=== PATIENT | female | born 1955 | race Caucasian/White ===

== ENCOUNTER → 2017-10-30 15:24 | Outpatient (CLI) | payer OTHER, SELFPAY | PROVIDERS: Visit Provider Nurse Practitioner Adult Health | DX: N39.0 Urinary tract infection, site not specified (principal) | CPT/HCPCS: 36415; 87086; 87088 ==

== ENCOUNTER → 2017-12-11 09:20 | Outpatient (CLI) | payer OTHER, SELFPAY ==
--- OUTSIDE RECORDS SUMMARY | 2017-12-11 09:57 | XMS RPT_ITS | Clinical Summary ---
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) Medications Medication Instructions Start Stop Generic Name NDC Provider Date Date SYNTHROID 112 Take one tablet LEVOTHYROXINE 35992900664 Selam Dutton MCG TABS daily SODIUM Shook MANAGER SOCIAL LOVASTATIN 20 3 per week LOVASTATIN [id number] Erin L MG TABS Mac PEDICURIST TRAZODONE HCL q hs TRAZODONE HCL [id number] Erin L 50 MG TABS Mca PEDICURIST VITAMIN D TABS qd CHOLECALCIFEROL 55485244665 Erin L TABS Mac PEDICURIST MEGARED OMEGA-3 qd KRILL OIL CAPS [id number] Erin L KRILL OIL CAPS Mac PEDICURIST MAGNESIUM 500 qd MAGNESIUM OXIDE [id number] Erin L MG CAPS Mac PEDICURIST MULTIVITAMIN qd MULTIPLE 24032609821 Erin L ADULT TABS VITAMINS-MINERALS Mac PEDICURIST Medications Administered No information available. Allergies, Adverse Reactions, Alerts Allergy Name Reaction Description Start Date Severity Status Provider MACRODANTIN Critical Active Erin L Mac PEDICURIST Results Date Name Value Unit Range Flag Description Office Visit: Follow up hypothyroid PHQ-9 SCORE 3 Adult depression screening assessment PHQ2 SCORE 0 Adult depression screening assessment MEDS REVIEW Done Documentation of current medications (procedure) ORALTOBACUSE Never Tobacco smoking status NHIS SMOK STATUS Never smoker Tobacco use [facility] Plan of Care No information available. Procedures No information available. Vital Signs Date Name Value Unit Description BMI (Body Mass Index) 25.26 kg/m2 Body Mass Index [Ratio] BP Diastolic 80 mm[Hg] blood pressure, diastolic - 8462-4 BP Systolic 122 mm[Hg] blood pressure, systolic - 8480-6 Heart Rate 67 /min pulse rate E&M - 8867-4 Height 63 [in_us] height E&M - 8302-2 Respiratory Rate 18 /min respiratory rate E&M - 9279-1 Weight Measured 142.6 [lb_av] weight E&M - 3141-9
--- OUTSIDE RECORDS SUMMARY | 2017-12-11 09:57 | XMS RPT_ITS | Clinical Summary ---
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) Medications Medication Instructions Start Stop Generic Name NDC Provider Date Date SYNTHROID 112 Take one tablet LEVOTHYROXINE [id number] Selam Dutton MCG TABS daily SODIUM Shook PEANUT BUTTER MAKER LOVASTATIN 20 3 per week LOVASTATIN [id number] Erin L MG TABS Mac EDUCATIONAL PROGRAM ASSISTANT TRAZODONE HCL q hs TRAZODONE HCL 59669507801 Erin L 50 MG TABS Mac EDUCATIONAL PROGRAM ASSISTANT VITAMIN D TABS qd CHOLECALCIFEROL 26957652801 Erin L TABS Mac EDUCATIONAL PROGRAM ASSISTANT MEGARED OMEGA-3 qd KRILL OIL CAPS [id number] Erin L KRILL OIL CAPS Mac EDUCATIONAL PROGRAM ASSISTANT MAGNESIUM 500 qd MAGNESIUM OXIDE 70854933161 Erin L MG CAPS Mac EDUCATIONAL PROGRAM ASSISTANT MULTIVITAMIN qd MULTIPLE 57436515501 Erin L ADULT TABS VITAMINS-MINERALS Mac EDUCATIONAL PROGRAM ASSISTANT Medications Administered No information available. Allergies, Adverse Reactions, Alerts Allergy Name Reaction Description Start Date Severity Status Provider MACRODANTIN Critical Active Erin L Mac EDUCATIONAL PROGRAM ASSISTANT Results Date Name Value Unit Range Flag Description Office Visit: Follow up hypothyroid PHQ-9 SCORE 3 Adult depression screening assessment PHQ2 SCORE 0 Adult depression screening assessment MEDS REVIEW Done Documentation of current medications (procedure) ORALTOBACUSE Never Tobacco smoking status NHIS SMOK STATUS Never smoker Tobacco use [facility] Plan of Care No information available. [...]
--- OUTSIDE RECORDS SUMMARY | 2017-12-11 09:57 | XMS RPT_ITS | Clinical Summary ---
:1955 Author Organization [facility], [facility] Address [address] [place] [phone] Phone Care Team Providers Name Role Phone Lacey BENSON, Selam Dutton Unavailable Conditions or Problems No information available. Medications Medication Instructions Start Stop Generic Name NDC Provider Date Date SYNTHROID 112 Take one tablet LEVOTHYROXINE [id number] Selam Dutton MCG TABS daily SODIUM Lacey BENSON Medications Administered No information available. Allergies, Adverse Reactions, Alerts No information available. Results No information available. Plan of Care Type Date Detail Appointment 03:00 PM Selam Rahman NP, [address] [facility], [address], [place], [address], Procedures No information available. Vital Signs No information available.
--- OUTSIDE RECORDS SUMMARY | 2017-12-11 09:57 | XMS RPT_ITS | Clinical Summary ---
:1955 Author Organization [facility], [facility] Address [address] [place] [address] Phone Care Team Providers Name Role Phone Dietrich OLY Mary Ann Bar Unavailable Unavailable Conditions or Problems No information available. Medications Medication Instructions Start Stop Generic Name NDC Provider Date Date SYNTHROID 112 Take one tablet LEVOTHYROXINE [id number] Selam Dutton MCG TABS daily FARHAT Rahman NP LOVASTATIN 20 3 per week LOVASTATIN [id number] Erin L MG TABS Mac COMPUTER TYPESETTER TRAZODONE HCL q hs TRAZODONE HCL [id number] Erin L 50 MG TABS Mac COMPUTER TYPESETTER VITAMIN D TABS qd CHOLECALCIFEROL [id number] Erin L TABS Mac COMPUTER TYPESETTER MEGARED OMEGA-3 qd KRILL OIL CAPS [id number] Erin L KRILL OIL CAPS Mac COMPUTER TYPESETTER MAGNESIUM 500 qd MAGNESIUM OXIDE 04997662056 Erin L MG CAPS Mac COMPUTER TYPESETTER MULTIVITAMIN qd MULTIPLE [phone] Eirn L ADULT TABS VITAMINS-MINERALS Mac COMPUTER TYPESETTER Medications Administered No information available. Allergies, Adverse Reactions, Alerts Allergy Name Reaction Description Start Date Severity Status Provider MACRODANTIN Critical Active Erin L Mca COMPUTER TYPESETTER Results No information available. Plan of Care Type Date Detail Appointment 03:00 PM Selam Rahman COMPUTER HARDWARE DESIGNER, [address] [facility], [address], [place], [address], Procedures No information available. Vital Signs No information available.
--- OUTSIDE RECORDS SUMMARY | 2017-12-11 09:58 | XMS RPT_ITS ---
:1955 Author Organization OHIP Care Team Providers Name Role Phone ARTIE BARTH (MAINTENANCE CONSTRUCTION HELPER) Attending Unavailable DENISE SCHRADER (ORTHOTIC FINISH GRINDING TECHNICIAN) Attending Unavailable CASSY TREADWELL (ORTHOTIC FINISH GRINDING TECHNICIAN) Attending Unavailable Tu Richardson Attending Unavailable Tu Richardson Primary Care Unavailable Jessica Patel Attending Unavailable Tu Richardson Primary Care Unavailable Jessica Patel Attending Unavailable Jessica Patel Referring Unavailable David Levin Primary Care Unavailable Jessica Patel Attending Unavailable Jessica Patel Referring Unavailable Ollie, David Primary Care Unavailable David Levin Attending Unavailable Ollie David Referring Unavailable Ollie David Primary Care Unavailable PROBLEMS PROBLEMS DATE TYPE CONDITION / CODE ATTENDING STATUS SOURCE 12/11/2017 Unknown Z00.00 - David Levin Active [place] Encounter for [facility] medical Repository examination without abnormal findings / Z00.00(ICD-10) 09/03/2017 Unknown N39.0 - Urinary Amanda, Jessica Active [place] tract infection, M Community site not Hospital specified / Repository N39.0(ICD-10) 09/03/2017 Unknown R30.0 - Dysuria / Amanda, Jessica Active [place] R30.0(ICD-10) M [facility] Repository 08/26/2017 Active Unknown / MILECASSY Active [facility] UNK(Medicity (ORTHOTIC FINISH GRINDING TECHNICIAN) Main [place] Unknown) Repository 05/12/2017 Unknown HYPOTHYROIDISM, Tu Richardson Active [place] UNSPECIFIED / Community E03.9(ICD-10) Hospital Repository 05/12/2017 Unknown PURE Tu Richardson Active [place] HYPERCHOLESTEROLE Community [facility], UNSPECIFIED Hospital / E78.00(ICD-10) Repository 05/12/2017 Unknown OTH DISRD OF BONE Tu Richardson Active [place] DENSITY AND Community STRUCTURE, Hospital UNSPECIFIED SITE Repository / M85.80(ICD-10) PROCEDURES PROCEDURES No Procedure Records FoundRESULTS RESULTS Observed: 10/30/2017 Status: F Source: [place] CULTURE, URINE 3:29 PM [facility] REPOSITORY Urine CultureBelow infection level. ORGANISM 1: Mixed Gram Pos AND Gram Neg OrgColony Count <1000 Performed By: #### M100.0650 ####[facility] [address] [place], [address] Observed: 09/29/2017 Status: F Source: [place] CULTURE, URINE 4:00 PM [facility] REPOSITORY Urine CultureCopy of report sent to Infection Control Printer [id number] 10/01/17 3816 BLUCAS. ORGANISM 1: Presumptive E. coliColony Count >100,000MARKER ESBL producing Organism Presumptive E. coli: REACTION Amoxacillin/ Clavulanic Acid $ >=32 R Ampicillin $ >=32 R Ampicillin/Sulbactam $ >=32 R Cefazolin $ 16 I Cefepime $ <=1 S Ceftriaxone $ <=1 S Ciprofloxacin $ >=4 R ESBL + Ertapenim $$$ <=0.5 S Gentamicin $ <=1 S Imipenem *NF <=0.25 S Levofloxacin $ >=8 R Nitrofurantoin $ <=16 S Piperacillin/Tazobactam $$ >=128 R Tobramycin $ <=1 S Trimethoprim/Sulfametho $ >=320 R(NF) indicates non-formulary drug at [facility]. Approval by Infectious Disease Specialist required before non-formulary drugs may be ordered and/or dispensed. Performed By: #### M100.0650 ####[facility] [address] [place], [address] Observed: 09/03/2017 Status: F Source: [place] CULTURE, URINE 10:00 AM [facility] REPOSITORY Urine CultureCopy of report sent to Infection Control Printer [id number] 09/06/17 0723 BLUCAS. ORGANISM 1: Presumptive E. coliColony Count 50,000-80,000 Presumptive E. coli: REACTION Amoxacillin/Clavulanic Acid $ >=32 R Ampicillin $ >=32 R Ampicillin/Sulbactam $ >=32 R Cefazolin $ 8 S Cefepime $ <=1 S Ceftriaxone $ <=1 S Ciprofloxacin $ >=4 R ESBL + Ertapenim $$$ <=0.5 S Gentamicin $ <=1 S Imipenem *NF <=0.25 S Levofloxacin $ >=8 R Nitrofurantoin $ <=16 S Piperacillin/Tazobactam $$ >=128 R Tobramycin $ <=1 S Trimethoprim/Sulfametho $ >=320 R(NF) indicates non- formulary drug at [facility]. Approval by Infectious Disease Specialist required before non-formulary drugs may be ordered and/or dispensed. Performed By: #### M100.0650 ####[facility] [address] [place], [address] OBSOLETE Observed: 08/28/2017 Status: COMPLETED Source: [place] 12:00 AM [facility] REPOSITORY Refill (WOOB) -------BREN MICHAEL ([id number]) 1955 FDate Time Provider Upvsyjvhlx52/14/17 CASSY TREADWELL ([facility]) WOOB During your visit today, we recorded the following information about you:Maura Niles CHIANG 08/28/2017 9 :31 AM SignedPatient states that she was in recently on 08/26/17 for UTI symptoms. Shethought she still had pills left from her last Pyridium rx, but only had one.Patient asking if she can have another Rx. Pharmacy is up to date. Please filepending Rx. Thank you. No need to call patient back unless there is a problem.Maura Cage RNAllergies As of Date: 08/28/2017 Noted Allergy ReactionMACRODANTIN (NITROFURANTOIN MACRO*05/06/2006 4 - HivesDate Reviewed: 08/26/2017Reviewed by : Cassy Whittington) Mile - Fully AssessedReason for Visit: Refill Request [94]Order(s):phenazopyridine (PYRIDIUM) 200 mg tabletTO BE TAKEN DIRECTED BY MOUTH ONE(1) TABLET THREE TIMES DAILY X 2 DAYSDisp: 6 tabletRfl: 0Prescriptions as of 08/28/2017 Sig: PHENAZOPYRIDINE 200 MG TABLET TO BE TAKEN DIRECTED BY MO* SULFAMETHOXAZOLE 800 MG-TRIME* Take 1 tablet by mouth twice * SENNA LAX ORAL Take by mouth. LEVOTHYROXINE 112 MCG TABLET Take 1 tablet by mouth once d* GABAPENTIN 300 MG CAPSULE TAKE 2 CAPSULES BY MOUTH ONCE* TRAZODONE 50 MG TABLET Take one(1) tablet daily as n*Problem List As Of Date 08/28/2017 Noted Resolved VARICOSE VEINS NEC [456] BONE AND CARTILAGE DIS NOS [M89.9, M94.9] INVALID FOR* NONTOX NODUL GOITER NOS [E04.9] INVALID FOR* ASYMPTOMATIC VARICOSE VEINS [I83.90] INVALID FOR* Postsurgical hypothyroidism [E89.0] INVALID FOR* Spider veins [I78.1] INVALID FOR* Internal hemorrhoid, bleeding [K64.8] INVALID FOR* Incomplete uterovaginal prolapse [N81.2] INVALID FOR* Female stress incontinence [N39.3] INVALID FOR* Prolapsed, uterovaginal, incomplete [N81.2] INVALID FOR*07/25/2016 Prolapse of vaginal gandhi [N81.10] INVALID FOR*07/25/2016 Postoperative anemia due to acute blood loss [D*INVALID FOR* Uterovaginal prolapse [N81.4] INVALID FOR* Atelectasis pulmonary [J98.11] INVALID FOR*Prescriptions ordered this encounter Disp Refills Start End PHENAZOPYRIDINE 200 MG TABLET 6 ta* 0 08/28/2017 Sig: TO BE TAKEN DIRECTED BY MOUTH ONE(1) TABLET THREE TIMES DAILY X 2 DAYSEncounter Number: [id number] Status:Closed by CASSY TREADWELL on Observed: 08/26/2017 Status: F Source: [place] URINE CULTURE 4:39 PM [facility] REPOSITORY Sp. Request/Comment: - Specimen received in preservative THIS WILL PRINT A REQUISITION TO ACCOMPANY THE SPECIMEN TO THE LAB.Culture Result - No growth (<1,000 CFU/ml) Performed By: #### URCUL ####[facility] [address] [place], [place] [id number] PROGRESS Observed: 08/26/2017 Status: COMPLETED Source: [place] 4:32 PM [facility] REPOSITORY HNO ID: [id number]: Cassy (Bulbs Farmworker) MetcalfService: (none)Author Type: Nurse PractitionerType: Progress NotesFiled: 08/26/2017 4: 48 PMNote Text:Bren Michael is a 62 year old female who presents for problem visitdysuria for 1 day.HPI: pt states that in Jun 2017 that she had an infection and took somecipro that did not quite clear the infection and took the refill whichseem to resolve. A few weeks ago she felt like she was getting another UTIand took some PCN that she had at home. Then again today started with somedysuria and frequency.PAST MEDICAL HISTORYDiagnosis Date- Deep vein thrombosis (HCC) 06/25, 03/2015- Disorder of bone and cartilage, unspecified Osteopenia- Diverticulitis 2015- Hemorrhage of rectum and anus- Hypothyroidism- Unspecified constipation- Varicose veins of other sitesPAST SURGICAL HISTORYProcedure Laterality Date- BX OF BREAST; INCISIONAL Bx of breast, incisional, Left- COLONOSCOP W/ OR W/O BRSH SPEC 12/25/07- FOOT SURGERY HX 03/2015 left ankle- HEMORRHOIDOPEXY BY STAPLING 11-15- - HYSTERECTOMY 07/2016- PAST SURGICAL HISTORY OF Multiple scleral therapies- PAST SURGICAL HISTORY OF 07/2016 TVH, BSO, Uterosacral ligament suspension, Roshan TOT sling, AANDP repair,Cystoscopy- REMOVAL OF TONSILS,<12 Y/O remote Tonsillectomy- THYROIDECTOMY 11/21 total for benign tumorsFAMILY HISTORYProblem Relation Age of Onset- Osteoporosis Mother- Hypertension Mother- Lipids Mother High Cholesterol- Heart Mother 2-KS's- Hypertension Father- Heart Father [place], - Osteoporosis Sister- Osteopenia [OTHER] Sister- Hypertension Sister- Hypertension Brother- Lipids Sister High Cholesterol- Other [OTHER] Other No breast/obstetrician and gynaecologist/colon cancer- Prostate Cancer BrotherSocial History Marital status: Spouse name: Adama Michael Years of education: Number of children: 2Occupational 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[place]*Social History Main Topics Smoking status: Never Smoker Smokeless status: Never Used Alcohol use: No Drug use: No Sexual activity: Yes Partners with: Male Comment: has had vasectomyCurrent Outpatient Prescriptions:SENNOSIDES (SENNA LAX ORAL) Take by mouth.levothyroxine ( SYNTHROID) 112 mcg tablet Take 1 tablet by mouth oncedaily.gabapentin (NEURONTIN) 300 mg capsule TAKE 2 CAPSULES BY MOUTH ONCE DAILYAT BEDTIME.TRAZODONE 50 MG TAB Take one(1) tablet daily as necessaryNo current facility-administered medications for this visit.Allergies As of Date: 08/26/2017Allergen Noted ReactionMACRODANTIN [NITROFURANTOIN MACRO*05/06/2006 HivesFully Assessed 08/26/2017REVIEW OF SYSTEMSAbdomen: No bloating, early satiety, indigestion, or increased flatulence.No abdominal pain, nausea, vomiting, diarrhea, or constipation.Bladder: Dysuria and frequency today. No gross hematuria, urinary urgency,or incontinence.Expanded ROS: N/AAllergies and current medication updated:YesEXAM: BP 110/62 Pulse 84 Resp 18 Ht 5' 3 (1.60m) Wt 141 lb 6.4 oz(64.1kg) LMP 10/04/2010 BMI 25.05 kg/(m2).GENERAL: pleasant, female in no apparent distressCHEST: Normal inspiratory effortNEURO: alert and oriented x3,exam grossly non-focalEXTREMITIES: normalASSESSMENT AND PLAN:Encounter Diagnosis ICD-10-CM1. Dysuria R30.0 UA DIP B/OUTI- bactrim x3 dayWill send urine cultureFollow up as needed.CASSY TREADWELL CNP CNOV Observed: 08/26/2017 Status: COMPLETED Source: [place] 4:30 PM [facility] REPOSITORY Office Visit (WOOB) -------BREN MICHAEL ([id number]) 1955 [facility] Time Provider Maikuvgejn91/12/17 4:30 PM CASSY TREADWELL ([facility]) WOOB During your visit today, we recorded the following information about you: Pulse Respiration Blood pressure Weight 84/minute 18/minute 110/62 64.1 kg Height 1.6 Amari TREADWELL CNP 08/26/2017 4:48 PM Katarina Dutton Alec is a 62 year old female who presents for problem visitdysuria for 1 day.HPI: pt states that in Jun 2017 that she had an infection and took some ciprothat did not quite clear the infection and took the refill which seem toresolve. A few weeks ago she felt like she was getting another UTI and tooksome PCN that she had at home. Then again today started with some dysuria andfrequency.PAST MEDICAL HISTORYDiagnosis Date - Deep vein thrombosis (HCC) 06/25, 03/2015- Disorder of bone and cartilage, unspecified Osteopenia- Diverticulitis 2015- Hemorrhage of rectum and anus- Hypothyroidism- Unspecified constipation- Varicose veins of other sitesPAST SURGICAL HISTORYProcedure Laterality Date- BX OF BREAST; INCISIONAL 1990s Bx of breast, incisional, Left- COLONOSCOP W/ OR W/O BRSH SPEC 12/25/07- FOOT SURGERY HX 2014 left ankle- HEMORRHOIDOPEXY BY STAPLING 11-15-- HYSTERECTOMY 07/2016- PAST SURGICAL HISTORY OF Multiple scleral therapies- PAST SURGICAL HISTORY OF 07/2016 TVH, BSO, Uterosacral ligament suspension, Roshan TOT sling, AANDamp;P repair,Cystoscopy- REMOVAL OF TONSILS,ANDlt;12 Y/O remote Tonsillectomy- THYROIDECTOMY 11/21 total for benign tumorsFAMILY HISTORYProblem Relation Age of Onset- Osteoporosis Mother- Hypertension Mother- Lipids Mother High Cholesterol- Heart Mother 2- KS's- Hypertension Father- Heart Father [place], - Osteoporosis Sister- Osteopenia [OTHER] Sister- Hypertension Sister- Hypertension Brother- Lipids Sister High Cholesterol- Other [OTHER] Other No breast/obstetrician and gynaecologist/colon cancer- Prostate Cancer BrotherSocial History Marital status : Spouse name: Adama Michael Years of education: Number of children: 2Occupational 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*Social History Main Topics Smoking status: Never Smoker Smokeless status: Never Used Alcohol use: No Drug use: No Sexual activity: Yes Partners with: Male Comment: has had vasectomyCurrent Outpatient Prescriptions:SENNOSIDES (SENNA LAX ORAL) Take by mouth.levothyroxine (SYNTHROID) 112 mcg tablet Take 1 tablet by mouth once daily.gabapentin ( NEURONTIN) 300 mg capsule TAKE 2 CAPSULES BY MOUTH ONCE DAILY ATBEDTIME.TRAZODONE 50 MG TAB Take one(1) tablet daily as necessaryNo current facility-administered medications for this visit.Allergies As of Date: 08/26/2017Allergen Noted ReactionMACRODANTIN [ NITROFURANTOIN MACRO*05/06/2006 HivesFully Assessed 08/26/2017REVIEW OF SYSTEMSAbdomen: No bloating, early satiety, indigestion, or increased flatulence. Noabdominal pain, nausea, vomiting, diarrhea, or constipation.Bladder: Dysuria and frequency today. No gross hematuria, urinary urgency, orincontinence.Expanded ROS: N/AAllergies and current medication updated: YesEXAM: BP 110/62 Pulse 84 Resp 18 Ht 5' 3ANDquot; (1.60m) Wt 141 lb 6.4 oz(64.1kg) LMP 2010 BMI 25.05 kg/(m2).GENERAL: pleasant, female in no apparent distressCHEST: Normal inspiratory effortNEURO: alert and oriented x3,exam grossly non-focalEXTREMITIES: normalASSESSMENT AND PLAN:Encounter Diagnosis ICD-10-CM1. Dysuria R30.0 UA DIP B/OUTI- bactrim x3 dayWill send urine cultureFollow up as needed.CASSY TREADWELL CNPReferring Provider: SELF [200] Allergies As of Date: 08/26/2017 Noted Allergy ReactionMACRODANTIN (NITROFURANTOIN MACRO*05/06 4 - HivesDate Reviewed: 08/26/2017Reviewed by: Cassy Treadwell - Fully AssessedReason for Visit: Dysuria [1085] Cmt: x 1 day, has been on antibiotic 3 times since june due to a missions tripPrimary Visit Diagnosis:Dysuria [R30.0] Other Visit Diagnosis: Frequent UTI [N39.0]Order(s):UA DIP B/O [5000772] Order #: [id number] sulfamethoxazole-trimethoprim (BACTRIM DS) 800-160 mg per tabletTake 1 tablet by mouth twice daily for 3 days. FOR 3 DAYS.Disp: 6 tabletRfl: 0 URINE CULTURE [SQURCUL] Order #: [id number] as of 08/26/2017 Sig: SENNA LAX ORAL Take by mouth. LEVOTHYROXINE 112 MCG TABLET Take 1 tablet by mouth once d* GABAPENTIN 300 MG CAPSULE TAKE 2 CAPSULES BY MOUTH ONCE* TRAZODONE 50 MG TABLET Take one(1) tablet daily as n* SULFAMETHOXAZOLE 800 MG-TRIME* Take 1 tablet by mouth twice *Problem List As Of Date 08/26/2017 Noted Resolved VARICOSE VEINS NEC [456] BONE AND CARTILAGE DIS NOS [M89.9, M94.9] INVALID FOR* NONTOX NODUL GOITER NOS [E04.9] INVALID FOR* ASYMPTOMATIC VARICOSE VEINS [I83.90] INVALID FOR* Postsurgical hypothyroidism [E89.0] INVALID FOR* Spider veins [I78.1] INVALID FOR* Internal hemorrhoid, bleeding [K64.8] INVALID FOR* Incomplete uterovaginal prolapse [N81.2] INVALID FOR* Female stress incontinence [N39.3] INVALID FOR* Prolapsed, uterovaginal, incomplete [N81.2] INVALID FOR*07/25/2016 Prolapse of vaginal gandhi [N81.10] INVALID FOR*07/25/2016 Postoperative anemia due to acute blood loss [D*INVALID FOR* Uterovaginal prolapse [N81.4] INVALID FOR* Atelectasis pulmonary [J98.11] INVALID FOR*Prescriptions ordered this encounter Disp Refills Start End SULFAMETHOXAZOLE 800 MG-TRIMETHOPRIM* 6 ta* 0 08/26/2017 08/29/2017 Route: ORAL Sig: Take 1 tablet by mouth twice daily for 3 days. FOR 3 DAYS. Status:Closed by CASSY TREADWELL on 08/26/17 CBC W/DIFF, AUTOMATED Collected: 05/07/2017 Status: F Source: [place] 9:19 AM [facility] REPOSITORY Order Comment: Order Date: 05/05/17Order Info: [id number] - CBCD TYPE CODE TESTS RESULT OUT OF RANGE REFERENCE UNITS LAB L100.1000 Normal 4.4-11.0 K/mm3 WBC 5.5 LAB L100.1200 Normal 4.2-5.4 M/mm3 RBC 4.87 LAB L100.1300 High 12.0-15.0 g/dl HGB 15.1 LAB L100.1400 Normal 37-47 % HCT 46.5 LAB L100.1500 Normal 81-99 fL MCV 95.5 LAB L100.1600 Normal 27.0-32.0 pg MCH 31.0 LAB L100.1700 Normal 32-36 g/gl MCHC 32.5 LAB L100.1810 Normal 11.6-14.6 % RDW 13.3 CV LAB L100.1820 High 35.1-43.9 fl RDW 46.0 SD LAB L100.1900 Normal 150-450 K/mm3 PLT 182 LAB L100.2000 Normal 6.2-12.0 fl MPV 11.7 LAB L100.2100 Normal 47-70 % NEUT% 47.7 LAB L100.2200 High 19-41 % LY% 44.1 LAB L100.2300 Normal 0-10 % MONO% 7.0 LAB L100.2400 Normal 0-5 % EO% 0.7 LAB L100.2500 Normal 0-1 % BASO% 0.5 LAB L100.2550 Normal 0.0-0.9 % IM 0.000 GRAN % Result Comment: IG% - Immature Granulocytes (promyelocytes, myelocytes andmetamyelocytes) > 1% indicates that a LEFT SHIFT is Present. LAB L100.2620 Normal 2.0-7.7 X10 3/uL Absolute Neut 2.6 LAB L100.2720 Normal 0.83-4.51 X10 3/ul Absolute Lymph 2.41 Performed By: #### L100.0100, L506.1000, L500.2500, L500.4100, L501.9520 #### [facility] [address] [place], [place], [address] VITAMIN D,25 HYDROXY Collected: 05/07/2017 Status: F Source: [place] 9:19 AM [facility] REPOSITORY Order Comment: Order Date: 05/05/17Order Info: [id number] - VITD25 TYPE CODE TESTS RESULT OUT OF RANGE REFERENCE UNITS LAB L506.1000 Normal ng/mL Vitamin 38.9 D 25-OH Result Comment: Vitamin D 25(OH) Status Range Deficiency <20 ng/mL (50nmol/L) Insuffciency 20 - 30 ng/mL (50 - 75 nmol/L) Sufficiency 30 - 100 ng/mL (75 - 250 nmol/L) Toxicity >100 ng/mL (>250 nmol/L) Performed By: #### L100.0100, L506.1000, L500.2500, L500.4100, L501.9520 #### [facility] [address] [place], [place], [address] BASIC METABOLIC Collected: 05/07/2017 Status: F Source: [place] PROFILE (BMP) 9:19 AM [facility] REPOSITORY Order Comment: Order Date: 05/05/17Order Info: [id number] - BMPOrder Info: [id number] - LIPIDOrder Info: [id number] - TSH TYPE CODE TESTS RESULT OUT OF RANGE REFERENCE UNITS LAB L501.0100 Normal 70-110 mg/dL GLU 84 LAB L501.1000 High 7-18 mg/dL BUN 19 LAB L501.1100 Normal 0.55-1.02 mg/dL 0.79 CREAT,SERUM Result Comment: The validity of the calculated GFR AND GFRAA in patients over70 years has not been determined. Clinical correlation isessential. LAB L501.1110 Normal >60 mL/min EST GFR 79 Result Comment: Non- GFR Calc LAB L501.1115 Normal >60 mL/min EST GFR - 95 AA Result Comment: GFR Calc LAB L501.1300 High 10-20 RATIO BUN/CRE 24.1 LAB L501.2200 Normal 8.5-10.1 mg/dL CA 9.1 LAB L501.5300 Normal 136-145 mmol/L NA 139 LAB L501.5600 Normal 3.5-5.1 mmol/L K 4.0 LAB L501.5900 Normal 98-107 mmol/L CL 102 LAB L501.6100 Normal 21.0-32.0 mmol/L CO2 30.0 LAB L501.6200 Normal 5-15 GAP 7 Performed By: #### L100.0100, L506.1000, L500.2500, L500.4100, L501.9520 #### [facility] [address] [place], [place], [address] LIPID PROFILE Collected: 05/07/2017 Status: F Source: [place] 9:19 AM [facility] REPOSITORY Order Comment: Order Date: 05/05/17Order Info: [id number] - BMPOrder Info: [id number] - LIPIDOrder Info: [id number] - TSH TYPE CODE TESTS RESULT OUT OF RANGE REFERENCE UNITS LAB L501.4900 High 200 mg/dL CHOL 247 Result Comment: <200 mg/dL Desirable 200-240 mg/dL Borderline >240 mg/dL High Risk LAB L501.5000 Normal mg/dL TRIG 105 Result Comment: The drugs N-Acetylcysteine and Metamizole may falsely deressthis assay.Serum Triglycerides Reference Interval Normal <150 mg/dL Borderline high 150 - 199 mg/ dL High 200 - 499 mg/dL Very High > or = 500 mg/dL LAB L501.6400 Normal mg/dL HDL 57 Result Comment: The drugs N-Acetylcysteine and Metamizole may falsely deressthis assay. Reference Range HDL <40 mg/dL Low HDL Cholesterol HDL >or= 60 mg/dL High HDL Cholesterol LAB L501.6500 High 0-130 mg/dL LDL 169 LAB L501.6600 Normal 5-40 mg/dL VLDL 21 Performed By: #### L100.0100, L506.1000, L500.2500, L500.4100, L501.9520 #### [facility] [address] [place], [place], [address] THYROID STIM HORMONE Collected: 05/07/2017 Status: F Source: [place] (TSH) 9:19 AM [facility] REPOSITORY Order Comment: Order Date: 05/05/17Order Info: [id number] - BMPOrder Info: [id number] - LIPIDOrder Info: [id number] - TSH TYPE CODE TESTS RESULT OUT OF RANGE REFERENCE UNITS LAB L501.9520 Normal 0.358-3.74 uIU/mL TSH 0.60 Performed By: #### L100.0100, L506.1000, L500.2500, L500.4100, L501.9520 #### [facility] [address] [place], [place], [address] Observed: 05/04/2017 Status: F Source: [place] URINE CULTURE 9:23 PM [facility] REPOSITORY Sp. Request/Comment: - Specimen received in preservativeCulture Result - 10,000 - <50,000 CFU/ml Klebsiella pneumoniae --> ABNORMAL ALERTORGANISM: Klebsiella pneumoniaeMETHOD: Minimum inhibitory concentration(Vitek)Antibiotic Interp ELLIOTT StatusAmpicillin RESISTANT &gt ;=32 FGentamicin SUSCEPTIBLE <=1 FTrimeth sulfameth SUSCEPTIBLE <=20 FCefazolin SUSCEPTIBLE <=4 FCiprofloxacin SUSCEPTIBLE <=0.25 FNitrofurantoin INTERMEDIATE 64 FCefepime SUSCEPTIBLE <=1 FPiperacillin/Tazobac SUSCEPTIBLE <=4 FAmpicillin Sulbact SUSCEPTIBLE 4 FCeftriaxone SUSCEPTIBLE <=1 FMeropenem SUSCEPTIBLE <=0.25 FErtapenem SUSCEPTIBLE <=0.5 F Performed By: #### URCUL ####[facility] [address] [place], [place] [id number] PROGRESS Observed: 05/04/2017 Status: COMPLETED Source: [place] 3:34 PM [facility] REPOSITORY HNO ID: [id number]: Denise (Bulbs Farmworker) OlderService: (none) Author Type: Nurse PractitionerType: Progress NotesFiled: 05/04/2017 4:14 PMNote Text: CC: Patient presents with:UTI: burning with urination and frequency x 3 daysHPRafael Marija Michael is a 61 year old female who presents with complaint ofurinary urgency. These symptoms have been present for 3 days.Accompanying symptoms include burning. The patient denies back pain,fever , nausea, vomiting and vaginal discharge. There is a history ofprevious UTI and the last one was months ago. The patient has triednothing to help to alleviate her symptoms. Risk factors for UTI: previousurinary tract infection.The ROS was otherwise negative.Current Meds:SENNOSIDES (SENNA LAX ORAL) Take by mouth.Cholecalciferol, Vitamin D3, (VITAMIN D-3) 2,000 unit cap Take 2 capsulesby mouth once daily.levothyroxine (SYNTHROID) 112 mcg tablet Take 1 tablet by mouth oncedaily.gabapentin (NEURONTIN) 300 mg capsule TAKE 2 CAPSULES BY MOUTH ONCE DAILYAT BEDTIME.TRAZODONE 50 MG TAB Take one(1) tablet daily as necessaryOTC NUTRITIONAL SUPPLEMENT Mulit-vitamin, Take one(1) tablet daily.phenazopyridine (PYRIDIUM) 200 mg tablet TO BE TAKEN DIRECTED BY MOUTHONE(1) TABLET THREE TIMES DAILY X 2 DAYSEstradiol (VAGIFEM) 10 mcg tab vaginal tablet Use 1 tablet vaginally twicea week. INTO LOWER 1/3 OF VAGINA TWICE A WEEK.oxyCODONE immediate release (PERCOLONE) 5 mg immediate release tablet Take1-2 tablets by mouth every 4 hours as needed.ferrous sulfate 325 mg (65 mg iron) tablet Take 1 tablet by mouth twicedaily.polyethylene glycol 3350 (MIRALAX) 17 gram/dose powder Take 17 g by mouthonce daily as needed. for constipation.ibuprofen (MOTRIN) 600 mg tablet Take 1 tablet by mouth every 6 hours.docusate sodium (COLACE) 100 mg capsule Take 1 capsule by mouth twicedaily.PMH, Medications, labs, allergies, and recent past visits with PCP werereviewed and updated as able.PHYSICAL EXAM:BP 116/70 Pulse 83 Temp 37 ?C (98.6 ?F) (Tympanic) Resp 14 Wt 64kg (141 lb) LMP 10/04/2010 BMI 24.2 kg/j7Fdxeqrw: Well appearing and alertCV: Regular rate and rhythm without obvious murmurLungs: clear to auscultation bilaterallyBack: no CVA tendernessAbdomen: soft, nontender, nondistendedComponent Latest Ref Rng AND Units 05/04/2017Glucose, Urine Neg mg/dL negBilirubin, Urine Neg negKetones, Urine Neg negSpecific Thornton, Ur 1.005 - 1.030 1.010Hemoglobin/Blood,Ur Neg tracepH, Urine 4.5 - 8.0 6.5Protein, Urine Neg mg/dL traceUrobilinogen, Urine Normal (<1.1) EU 0.2Nitrites Neg posLeukocytes Neg modColor/Appearance comment: dark yellowQuality Check yes/no YesASSESSMENT/PLAN :1. Burning with urination - ICD9: 788.1, ICD10: R30.0acute- Send urine for culture- Patient reports she has been treated with numerous antibiotics in thepast for UTI's and the only one that works is Cipro. Begin treatment withCiprofloxacin 250 mg BID for 7 days- Patient education for prevention given- Follow-up with PCP in 2- 3 days if symptoms persist- UA DIP B/O- URINE CULTURECASEY Johnson Observed: 05/04/2017 Status: COMPLETED Source: [place] 3:15 PM [facility] REPOSITORY Office Visit (WSTR) ---------BREN MICHAEL ([id number]) 1955 FDate Time Provider Department05/04/17 3:15 PM OLDERDENISE (CASEY) UCWSTR During your visit today, we recorded the following information about you: Temperature Pulse Respiration Blood pressure 98.6 degrees 83/minute 14/minute 116/70 Weight 64 kgNaz OlderCASEY 05/04/2017 4:14 PM SignedCC: Patient presents with:UTI: burning with urination and frequency x 3 daysHPRafael Marija Michael is a 61 year old female who presents with complaint of urinaryurgency. These symptoms have been present for 3 days. Accompanying symptomsinclude burning. The patient denies back pain, fever , nausea, vomiting andvaginal discharge. There is a history of previous UTI and the last one wasmonths ago. The patient has tried nothing to help to alleviate her symptoms.Risk factors for UTI: previous urinary tract infection.The ROS was otherwise negative.Current Meds:SENNOSIDES (SENNA LAX ORAL) Take by mouth.Cholecalciferol, Vitamin D3, ( VITAMIN D-3) 2,000 unit cap Take 2 capsules bymouth once daily.levothyroxine (SYNTHROID) 112 mcg tablet Take 1 tablet by mouth once daily.gabapentin (NEURONTIN) 300 mg capsule TAKE 2 CAPSULES BY MOUTH ONCE DAILY ATBEDTIME.TRAZODONE 50 MG TAB Take one(1) tablet daily as necessaryOTC NUTRITIONAL SUPPLEMENT Mulit-vitamin, Take one(1) tablet daily.phenazopyridine (PYRIDIUM) 200 mg tablet TO BE TAKEN DIRECTED BY MOUTHONE(1) TABLET THREE TIMES DAILY X 2 DAYSEstradiol (VAGIFEM) 10 mcg tab vaginal tablet Use 1 tablet vaginally twice aweek. INTO LOWER 1/3 OF VAGINA TWICE A WEEK.oxyCODONE immediate release (PERCOLONE) 5 mg immediate release tablet Take 1-2tablets by mouth every 4 hours as needed.ferrous sulfate 325 mg (65 mg iron) tablet Take 1 tablet by mouth twice daily.polyethylene glycol 3350 (MIRALAX) 17 gram/dose powder Take 17 g by mouth oncedaily as needed. for constipation.ibuprofen (MOTRIN) 600 mg tablet Take 1 tablet by mouth every 6 hours.docusate sodium ( COLACE) 100 mg capsule Take 1 capsule by mouth twice daily.PMH, Medications, labs, allergies, and recent past visits with PCP werereviewed and updated as able.PHYSICAL EXAM:BP 116/70 Pulse 83 Temp 37 ? C (98.6 ?F) (Tympanic) Resp 14 Wt 64 kg(141 lb) LMP 10/04/2010 BMI 24.2 kg/f3Mfshuvk: Well appearing and alertCV: Regular rate and rhythm without obvious murmurLungs: clear to auscultation bilaterallyBack: no CVA tendernessAbdomen: soft, nontender, nondistendedComponent Latest Ref Rng ANDamp ; Units 05/04/2017Glucose, Urine Neg mg/dL negBilirubin, Urine Neg negKetones, Urine Neg negSpecific Thornton, Ur 1.005 - 1.030 1.010Hemoglobin/Blood,Ur Neg tracepH, Urine 4.5 - 8.0 6.5Protein , Urine Neg mg/dL traceUrobilinogen, Urine Normal (ANDlt;1.1) EU 0.2Nitrites Neg posLeukocytes Neg modColor/Appearance comment: dark yellowQuality Check yes/no YesASSESSMENT/PLAN:1. Burning with urination - ICD9: 788.1, ICD10: R30.0acute- Send urine for culture- Patient reports she has been treated with numerous antibiotics in the pastfor UTI's and the only one that works is Cipro. Begin treatment withCiprofloxacin 250 mg BID for 7 days- Patient education for prevention given- Follow-up with PCP in 2-3 days if symptoms persist- UA DIP B/O- URINE CULTUREDenise Schrader, CNPReferring Provider: SELF [200]Allergies As of Date: 05/04/2017 Noted Allergy ReactionMACRODANTIN (NITROFURANTOIN MACRO*05/06/2006 4 - HivesDate Reviewed: 05/04/2017Reviewed by: Keny Bains Hall Manager - Fully AssessedReason for Visit: UTI [116] Cmt: burning with urination and frequency x 3 daysPrimary Visit Diagnosis:Burning with urination [R30.0]Order(s):UA DIP B/O [1314781] Order # : [id number] URINE CULTURE [SQURCUL] Order #: [id number] ciprofloxacin HCl (CIPRO) 250 mg tabletTake 1 tablet by mouth twice daily for 7 days.Disp: 14 tabletRfl: 0Prescriptions as of 05/04/2017 Sig: SENNA LAX ORAL Take by mouth. LEVOTHYROXINE 112 MCG TABLET Take 1 tablet by mouth once d* GABAPENTIN 300 MG CAPSULE TAKE 2 CAPSULES BY MOUTH ONCE* TRAZODONE 50 MG TABLET Take one(1) tablet daily as n* CIPROFLOXACIN 250 MG TABLET Take 1 tablet by mouth twice *Medication notes this encounter PHENAZOPYRIDINE 200 MG TABLET >> Keny Matt Hall Manager 05/04/2017 3:18 PM >> MATT KENY ALDRIDGE May 04, 2017 3:18 PM Not taking ESTRADIOL 10 MCG VAGINAL TABLET >> Keny Matt Hall Manager 05/04/2017 3:17 PM >&gt ; MATT OLY KENY Sun May 04, 2017 3:17 PM Not taking FERROUS SULFATE 325 MG (65 MG IRON) TABLET >> Keny Aulander Hall Manager 05/04/2017 3:17 PM >> MATT OLY KENY Sun May 04, 2017 3:17 PM Not taking OTC NUTRITIONAL SUPPLEMENT >> Keny Matt Hall Manager 05/04/2017 3:18 PM >&gt ; MATT OLY KENY Corrie May 04, 2017 3:18 PMProblem List As Of Date 05/04/2017 Noted Resolved VARICOSE VEINS NEC [456] BONE AND CARTILAGE DIS NOS [M89.9, M94.9] INVALID FOR* NONTOX NODUL GOITER NOS [E04.9] INVALID FOR* ASYMPTOMATIC VARICOSE VEINS [ I83.90] INVALID FOR* Postsurgical hypothyroidism [E89.0] INVALID FOR* Spider veins [I78.1] INVALID FOR* Internal hemorrhoid, bleeding [K64.8] INVALID FOR* Incomplete uterovaginal prolapse [N81.2] INVALID FOR* Female stress incontinence [N39.3] INVALID FOR* Prolapsed, uterovaginal, incomplete [N81.2] INVALID FOR *07/25/2016 Prolapse of vaginal gandhi [N81.10] INVALID FOR*07/25/2016 Postoperative anemia due to acute blood loss [D*INVALID FOR* Uterovaginal prolapse [N81.4] INVALID FOR* Atelectasis pulmonary [J98.11] INVALID FOR*Prescriptions ordered this encounter Disp Refills Start End CIPROFLOXACIN 250 MG TABLET 14 t* 0 201605/11/2017 Route: ORAL Sig: Take 1 tablet by mouth twice daily for 7 days.Medications Discontinued During This Encounter OTC NUTRITIONAL SUPPLEMENT 0 05/06/2006 05/04/2017 Class: OTC Sig: Mulit-vitamin, Take one(1) tablet daily. Disc: Reason for discontinue is not on file. Cholecalciferol, Vitamin D3, (VITAMI* 05/04/2017 Class: Historical Med Route: ORAL Sig: Take 2 capsules by mouth once daily. Disc: Reason for discontinue is not on file. docusate sodium (COLACE) 100 mg caps* 60 c* 0 07/25/201605/04 Class: Print RX Route: ORAL Sig: Take 1 capsule by mouth twice daily. Disc: Reason for discontinue is not on file. ibuprofen (MOTRIN) 600 mg tablet 30 t* 0 07/27/201605/04 Class: Print RX Route: ORAL Sig: Take 1 tablet by mouth every 6 hours. Disc: Reason for discontinue is not on file. polyethylene glycol 3350 (MIRALAX) 1* 1 Nnamdi* 0 07/27/201605/04 Class: Print RX Route: ORAL Sig: Take 17 g by mouth once daily as needed. for constipation. Disc: Reason for discontinue is not on file. ferrous sulfate 325 mg (65 mg iron) * 60 t* 0 07/27/2016 05/04/2017 Class: Print RX Route: ORAL Sig: Take 1 tablet by mouth twice daily. Disc: Reason for discontinue is not on file. oxyCODONE immediate release (PERCOLO* 20 t* 0 07/27/2016 05/04/2017 Class: Print RX Route: ORAL Sig: Take 1-2 tablets by mouth every 4 hours as needed. Disc: Reason for discontinue is not on file. Estradiol (VAGIFEM) 10 mcg tab vagin* 24 t* 4 09/02/2016 05/04/2017 Route: VAGINAL Sig: Use 1 tablet vaginally twice a week. INTO LOWER 1/3 OF VAGINA TWICE A WEEK. Disc: Reason for discontinue is not on file. phenazopyridine (PYRIDIUM) 200 mg ta* 6 ta* 0 02/25/2017 05/04/2017 Sig: TO BE TAKEN DIRECTED BY MOUTH ONE(1) TABLET THREE TIMES DAILY X 2 DAYS Disc: Reason for discontinue is not on file. Status:Closed by DENISE SCHRADER CNP on 05/04/17 PROGRESS Observed: 02/25/2017 Status: COMPLETED Source: [place] 3:35 PM [facility] [place] REPOSITORY HNO ID: [id number]: Artie Yoder (Marcelino) CASEY BarthService: (none)Author Type: Nurse PractitionerType: Progress NotesFiled: 02/25/2017 4:17 PMNote Text:HPIPatient presents with:Urinary Frequency: pain after urination x yesterdayStates hx of UTIsDenies any otc treatment for symptoms.Review of SystemsConstitutional: Negative for chills, fever and malaise/fatigue.Gastrointestinal: Negative for abdominal pain, diarrhea, nausea andvomiting.Genitourinary: Positive for dysuria and frequency. Negative for flankpain, hematuria and urgency.Musculoskeletal: Negative for back pain.All other systems reviewed and are negative.PAST MEDICAL HISTORYDiagnosis Date- Deep vein thrombosis (HCC) 06/25, 03/2015- Disorder of bone and cartilage, unspecified Osteopenia- Diverticulitis 2016- Hemorrhage of rectum and anus- Hypothyroidism- Unspecified constipation- Varicose veins of other sitesPAST SURGICAL [id number] : BX OF BREAST; INCISIONAL Comment: Bx of breast, incisional, Left12/25/07: COLONOSCOP W/ OR W/O [facility] SPEC03/2015: FOOT SURGERY HX Comment: left ankle11-15: HEMORRHOIDOPEXY BY STAPLINGNo date: PAST SURGICAL HISTORY OF Comment: Multiple scleral geoxgpjro65/2016: PAST SURGICAL HISTORY OF Comment: TVH, BSO, Uterosacral ligament suspension, Roshan TOT sling, AANDP repair, Cystoscopyremote : REMOVAL OF TONSILS,<12 Y/O Comment: Tonsillectomy11/21: THYROIDECTOMY Comment: total for benign tumorsALLERGIES Macrodantin [Nitrofurantoin Macrocrystalline]MEDICATIONSEstradiol (VAGIFEM) 10 mcg tab vaginal tablet Use 1 tablet vaginally twicea week. INTO LOWER 1/3 OF VAGINA TWICE A WEEK.SENNOSIDES (SENNA LAX ORAL) Take by mouth.Cholecalciferol, Vitamin D3, (VITAMIN D-3) 2,000 unit cap Take 2 capsulesby mouth once daily.levothyroxine (SYNTHROID) 112 mcg tablet Take 1 tablet by mouth oncedaily.gabapentin (NEURONTIN) 300 mg capsule TAKE 2 CAPSULES BY MOUTH ONCE DAILYAT BEDTIME.TRAZODONE 50 MG TAB Take one(1) tablet daily as necessaryOTC NUTRITIONAL SUPPLEMENT Mulit-vitamin, Take one(1) tablet daily.ciprofloxacin HCl (CIPRO) 250 mg tablet Take 1 tablet by mouth twicedaily. For UTIoxyCODONE immediate release (PERCOLONE) 5 mg immediate release tablet Take1- 2 tablets by mouth every 4 hours as needed.ferrous sulfate 325 mg (65 mg iron) tablet Take 1 tablet by mouth twicedaily.polyethylene glycol 3350 (MIRALAX) 17 gram/ dose powder Take 17 g by mouthonce daily as needed. for constipation.ibuprofen ( MOTRIN) 600 mg tablet Take 1 tablet by mouth every 6 hours.docusate sodium (COLACE) 100 mg capsule Take 1 capsule by mouth twicedaily.FAMILY HISTORY Osteoporosis Mother Osteoporosis Sister Osteopenia [Other] [OTHER] Sister Hypertension Mother Hypertension Father Hypertension Sister Hypertension Brother Lipids Mother Comment: High Cholesterol Lipids Sister Comment: High Cholesterol Heart Mother Comment: 2-[place]'s Heart Father Comment: [place], Other [Other] [OTHER] Comment: No breast/obstetrician and gynaecologist /colon cancer Prostate Cancer BrotherSocial HistorySubstance Use Topics- Smoking status: Never Smoker- Smokeless tobacco: Never Used- Alcohol use NoPhysical ExamConstitutional: She is well-developed, well-nourished, and in no distress.HENT:Head: Normocephalic.Eyes: Conjunctivae are normal.Neck: Normal range of motion.Abdominal: Soft. Normal appearance. There is no tenderness. There is noCVA tenderness.Nursing note and vitals reviewed.ASSESSMENT/PLAN:1. Frequency of urination - ICD9: 788.41, ICD10: R35.0acute- UA positive for jayce esterase and hematuria - Send urine for culture- Begin treatment with Ciprofloxacin 250 mg BID for 10 days, per ptrequest- Patient education for prevention given- Supportive care, rest, fluids, analgesics PRN- UA DIP B/O- URINE CULTUREPrescription instructions reviewed with patient as applicable. Patientadvised if symptoms do not improve or if symptoms worsen sooner, tocontact their primary care physician. Potential red flag symptomsdiscussed with the patient. Reviewed appropriate action plan to take ifred flag symptoms occur. Patient agreeable to treatment plan.Artie Barth CNP Observed: 02/25/2017 Status: F Source: [place] URINE CULTURE 3:35 PM [facility] REPOSITORY Sp. Request/Comment: - Specimen received in preservativeCulture Result - >=100,000 CFU/ml Escherichia coli --> ABNORMAL ALERTORGANISM: Escherichia coliMETHOD: Minimum inhibitory concentration(Vitek)Antibiotic Interp ELLIOTT StatusAmpicillin SUSCEPTIBLE <=2 FGentamicin SUSCEPTIBLE <=1 FTrimeth sulfameth SUSCEPTIBLE <=20 FCefazolin SUSCEPTIBLE <=4 FCiprofloxacin SUSCEPTIBLE <=0.25 FNitrofurantoin SUSCEPTIBLE <=16 FCefepime SUSCEPTIBLE <=1 FPiperacillin/Tazobac SUSCEPTIBLE <=4 FAmpicillin Sulbact SUSCEPTIBLE <=2 FCeftriaxone SUSCEPTIBLE <=1 FMeropenem SUSCEPTIBLE <=0.25 FErtapenem SUSCEPTIBLE <=0.5 F Performed By: #### URCUL ####[facility] [address] [place], [place] [phone] CNOV Observed: 02/25/2017 Status: COMPLETED Source: [place] 3:00 PM [facility] REPOSITORY Office Visit (UCWSTR) ---------BREN MICHAEL ([id number]) 1955 [facility] Time Provider Department02/25/17 3:00 PM ARTIE BARTH (MARCELINO) UCWSTR During your visit today, we recorded the following information about you: Temperature Pulse Respiration Blood pressure 98.4 degrees 66/minute 14/minute 128/70 Weight 65.3 kgArtie Barth CNP, CASEY 02/25/2017 4:17 PM SignedHPIPatient presents with :Urinary Frequency: pain after urination x yesterdayStates hx of UTIsDenies any otc treatment for symptoms.Review of SystemsConstitutional: Negative for chills, fever and malaise/ fatigue.Gastrointestinal: Negative for abdominal pain, diarrhea, nausea and vomiting.Genitourinary: Positive for dysuria and frequency. Negative for flank pain,hematuria and urgency.Musculoskeletal: Negative for back pain.All other systems reviewed and are negative.PAST MEDICAL HISTORYDiagnosis Date- Deep vein thrombosis (HCC) 06/25, 03/2015- Disorder of bone and cartilage, unspecified Osteopenia- Diverticulitis 2016- Hemorrhage of rectum and anus- Hypothyroidism- Unspecified constipation- Varicose veins of other sitesPAST SURGICAL [id number] : BX OF BREAST; INCISIONAL Comment: Bx of breast, incisional, Left12/25/07: COLONOSCOP W/ OR W/O [facility] SPEC03/2015: FOOT SURGERY HX Comment: left ankle11-15-14: HEMORRHOIDOPEXY BY STAPLINGNo date: PAST SURGICAL HISTORY OF Comment: Multiple scleral momlhwdyv18/2016: PAST SURGICAL HISTORY OF Comment: TVH, BSO, Uterosacral ligament suspension, Roshan TOT sling, AANDamp; P repair, Cystoscopyremote : REMOVAL OF TONSILS,ANDlt;12 Y/O Comment: Tonsillectomy: THYROIDECTOMY Comment: total for benign tumorsALLERGIES Macrodantin [Nitrofurantoin Macrocrystalline]MEDICATIONSEstradiol (VAGIFEM) 10 mcg tab vaginal tablet Use 1 tablet vaginally twice aweek. INTO LOWER 1/3 OF VAGINA TWICE A WEEK.SENNOSIDES (SENNA LAX ORAL) Take by mouth.Cholecalciferol, Vitamin D3, (VITAMIN D-3) 2,000 unit cap Take 2 capsules bymouth once daily.levothyroxine (SYNTHROID) 112 mcg tablet Take 1 tablet by mouth once daily.gabapentin (NEURONTIN) 300 mg capsule TAKE 2 CAPSULES BY MOUTH ONCE DAILY ATBEDTIME.TRAZODONE 50 MG TAB Take one(1) tablet daily as necessaryOTC NUTRITIONAL SUPPLEMENT Mulit-vitamin, Take one(1) tablet daily.ciprofloxacin HCl (CIPRO) 250 mg tablet Take 1 tablet by mouth twice daily. ForUTIoxyCODONE immediate release (PERCOLONE) 5 mg immediate release tablet Take 1-2tablets by mouth every 4 hours as needed.ferrous sulfate 325 mg (65 mg iron) tablet Take 1 tablet by mouth twice daily.polyethylene glycol 3350 (MIRALAX) 17 gram/dose powder Take 17 g by mouth oncedaily as needed. for constipation.ibuprofen ( MOTRIN) 600 mg tablet Take 1 tablet by mouth every 6 hours.docusate sodium (COLACE) 100 mg capsule Take 1 capsule by mouth twice daily.FAMILY HISTORY Osteoporosis Mother Osteoporosis Sister Osteopenia [Other ] [OTHER] Sister Hypertension Mother Hypertension Father Hypertension Sister Hypertension Brother Lipids Mother Comment: High Cholesterol Lipids Sister Comment: High Cholesterol Heart Mother Comment: 2-[place]'s Heart Father Comment: [place], Other [Other] [OTHER] Comment: No breast/obstetrician and gynaecologist/colon cancer Prostate Cancer BrotherSocial HistorySubstance Use Topics- Smoking status: Never Smoker- Smokeless tobacco: Never Used- Alcohol use NoPhysical ExamConstitutional: She is well-developed, well- nourished, and in no distress.HENT:Head: Normocephalic.Eyes: Conjunctivae are normal.Neck: Normal range of motion.Abdominal: Soft. Normal appearance. There is no tenderness. There is no CVAtenderness.Nursing note and vitals reviewed.ASSESSMENT/PLAN:1. Frequency of urination - ICD9: 788.41, ICD10: R35.0acute- UA positive for jayce esterase and hematuria- Send urine for culture- Begin treatment with Ciprofloxacin 250 mg BID for 10 days, per pt request- Patient education for prevention given- Supportive care, rest, fluids, analgesics PRN- UA DIP B/O- URINE CULTUREPrescription instructions reviewed with patient as applicable. Patient advisedif symptoms do not improve or if symptoms worsen sooner, to contact theirprimary care physician. Potential red flag symptoms discussed with thepatient. Reviewed appropriate action plan to take if red flag symptoms occur.Patient agreeable to treatment plan.Artie Barth CNPReferring Provider: SELF [200]Allergies As of Date: 02/25/2017 Noted Allergy ReactionMACRODANTIN (NITROFURANTOIN MACRO*05/06/2006 4 - HivesDate Reviewed: 02/25/2017Reviewed by: Artie Yoder (Marcelino) CASEY Barth - Fully AssessedReason for Visit: Urinary Frequency [1086] Cmt: pain after urination x yesterdayPrimary Visit Diagnosis:Frequency of urination [R35.0] Order(s):UA DIP B/O [[id number]] Order #: [id number] URINE CULTURE [SQURCUL] Order #: [id number] ciprofloxacin HCl (CIPRO) 250 mg tabletTake 1 tablet by mouth twice daily for 10 days.Disp: 20 tabletRfl: 0 phenazopyridine (PYRIDIUM) 200 mg tabletTO BE TAKEN DIRECTED BY MOUTH ONE(1) TABLET THREE TIMES DAILY X 2 DAYSDisp: 6 tabletRfl: 0Prescriptions as of 02/25/2017 Sig: ESTRADIOL 10 MCG VAGINAL TABL* Use 1 tablet vaginally twice * SENNA LAX ORAL Take by mouth. CHOLECALCIFEROL (VITAMIN D3) * Take 2 capsules by mouth once* LEVOTHYROXINE 112 MCG TABLET Take 1 tablet by mouth once d* GABAPENTIN 300 MG CAPSULE TAKE 2 CAPSULES BY MOUTH ONCE* TRAZODONE 50 MG TABLET Take one(1) tablet daily as n* OTC NUTRITIONAL SUPPLEMENT Mulit-vitamin, Take one(1) ta* CIPROFLOXACIN 250 MG TABLET Take 1 tablet by mouth twice * PHENAZOPYRIDINE 200 MG TABLET TO BE TAKEN DIRECTED BY MO* OXYCODONE 5 MG TABLET Take 1-2 tablets by mouth devin* FERROUS SULFATE 325 MG (65 MG* Take 1 tablet by mouth twice * POLYETHYLENE GLYCOL 3350 17 G* Take 17 g by mouth once daily* IBUPROFEN 600 MG TABLET Take 1 tablet by mouth every * DOCUSATE SODIUM 100 MG CAPSULE Take 1 capsule by mouth twice*Medication notes this encounter CIPROFLOXACIN 250 MG TABLET >> Keiry Herbert Ma 02/25/2017 3:12 PM >> KEIRY HERBERT MA Feb 25, 2017 3:12 PM finished OXYCODONE 5 MG TABLET >> Keiry Herbert Ma 02/25/2017 3:12 PM >> KEIRY HERBERT MA Feb 25, 2017 3:12 PM doneProblem List As Of Date 02/25/2017 Noted Resolved VARICOSE VEINS NEC [456] BONE AND CARTILAGE DIS NOS [M89.9, M94.9] INVALID FOR* NONTOX NODUL GOITER NOS [E04.9] INVALID FOR* ASYMPTOMATIC VARICOSE VEINS [I83.90] INVALID FOR* Postsurgical hypothyroidism [E89.0] INVALID FOR* Spider veins [I78.1] INVALID FOR* Internal hemorrhoid, bleeding [K64.8] INVALID FOR* Incomplete uterovaginal prolapse [N81.2] INVALID FOR* Female stress incontinence [N39.3] INVALID FOR* Prolapsed, uterovaginal, incomplete [N81.2] INVALID FOR*07/25/2016 Prolapse of vaginal gandhi [N81.10] INVALID FOR*07/25/2016 Postoperative anemia due to acute blood loss [D*INVALID FOR* Uterovaginal prolapse [N81.4] INVALID FOR* Atelectasis pulmonary [J98.11] INVALID FOR*Prescriptions ordered this encounter Disp Refills Start End CIPROFLOXACIN 250 MG TABLET 20 t* 0 02/25/2017 03/07/2017 Route: ORAL Sig: Take 1 tablet by mouth twice daily for 10 days. PHENAZOPYRIDINE 200 MG TABLET 6 ta* 0 02/25/2017 Sig: TO BE TAKEN DIRECTED BY MOUTH ONE(1) TABLET THREE TIMES DAILY X 2 DAYSMedications Discontinued During This Encounter ciprofloxacin HCl (CIPRO) 250 mg tab* 6 ta * 1 09/02/2016 02/25/2017 Route: ORAL Sig: Take 1 tablet by mouth twice daily. For UTI Disc: Course of therapy completedDisposition: Return if symptoms worsen or fail to improve.Follow -up and Disposition History RecordedEncounter Number: [id number] Status:Closed by ARTIE BARTH on 02/25/17 ALLERGIES ALLERGIES DATE TYPE / NAME / CODE REACTION SEVERITY SOURCE CODE 04/01/2015 Drug nitrofurantoin Hives Unknown [place] Allergy/41 macrocrystalline/F0000 [facility] [id number]( [id number]([facility]) Repository 04/01/2015 Drug nitrofurantoin Hives [place] Allergy/41 macrocrystalline/F0000 [facility] [id number](SN [id number]([facility]) Repository 05/06/2006 DRUG NITROFURANTOIN HIVES [place] INGREDI/41 [facility] [id number]([facility] [place]) Repository ENCOUNTERS ENCOUNTERS ADMIT/DISCHARGE ACCOUNT ADMITTING ENCOUNTER LOCATION SOURCE NUMBER CLASS 12/11/2017 [id number] [facility] ing:MTLAB Repository 10/30/2017 [id number] [facility] ing:LAB Repository 09/29/2017 [id number] [facility] ing:LABSPEC Repository 09/03/2017 [id number] [facility] ing:LABSPEC Repository 08/26/2017/08/26/[id number] Repository 05/07/2017 [id number] [facility] ing:MTLAB Repository 05/04/2017/05/04/[id number] Repository 02/25/2017/02/26/[id number] Repository PAYERS PAYERS ENCOUNTER GUARANTOR PAYER SUBSCRIBER SOURCE 12/11/2017 BREN J Primary BREN J [place] [id number] Insurance:[facility]: [facility] Number: [id number], [place] [id number] Repository [address]Dar: [phone]) Date:[phone] () [place], [place] [address]PI: 12/11/2017 Secondary NOT GIVENUNK [place] Insurance:SELF PAY [facility] Number: Effective Repository Date:2017-12-11 10/30/2017 Adama E Primary Adama E [place] [id number] Insurance:[facility]: [facility] Number: [id number], [place] [id number] Repository [address]Ioa: Date:[phone] [address]EEYBQW, [place] -2 ) [phone]: 10/30/2017 Secondary NOT GIVENUNK [place] Insurance:SELF PAY [facility] Number: Effective Repository Date:2017-10-30 09/29/2017 BREN J Primary NOT GIVENUNK [place] [id number] Insurance:SELF PAY [place] Number: Effective Repository [id number]: (330) Date:2017-09-29 [phone] (HP) 09/03/2017 Adama E Primary Adama E [place] [id number] Insurance:GPATPA HeraldDOB: [facility] Number: [id number], [place] [id number] Repository [address]Deg: Date:7605-63-86[phone], [place] -2 (HP) [phone]: 09/03/2017 Secondary NOT GIVENUNK Eddie Insurance:SELF PAY [facility] Number: Effective Repository Date:2017-09-03 05/07/2017 ADAMA E Primary ADAMA E [place] [id number] Insurance:GPATPA HERALDDOB: [facility] Number: [id number], [place] [id number] Repository [address]Prh: ([phone]) Date:[phone] (HP) [id number], [place] [address]DP:
[2017-12-11 12:06] LABS: Absolute Lymphocyte Count 2.56 X10^3/ul (0.83-4.51); Absolute Neutrophil Count 2.3 X10^3/uL (2.0-7.7); Basophil# 0.04 X10^3/uL; Basophil% 0.8 % (0-1); Eosinophil# 0.04 X10^3/uL; Eosinophils% 0.8 % (0-5); Hematocrit 46.2 % (37-47); Hemoglobin 15.5 g/dl (12.0-15.0); Lymphocyte # 2.56 X10^3/ul (4.0); Lymphocyte % 48.1 % (19-41); Mean Corp Hgb Conc 33.5 g/gl (32-36); Mean Corpuscular Hgb 31.8 pg (27.0-32.0); Mean Corpuscular Volume 94.9 fL (81-99); Mean Platelet Vol. 11.8 fl (6.2-12.0); Monocyte# 0.41 X10^3/uL; Monocyte% 7.7 % (0-10); Neutrophil # 2.27 X10^3/uL (2.7-7.7); Neutrophil % 42.6 % (47-70); Platelet Count 173 K/mm3 (150-450); RBC Distribution Width CV 13.2 % (11.6-14.6); Red Blood Count 4.87 M/mm3 (4.2-5.4); White Blood Count 5.3 K/mm3 (4.4-11.0)
[2017-12-11 12:09] LABS: Color, Urine Yellow (Yellow); Glucose, Dipstick Normal (Normal); Ketone-Dipstick Negative (Negative); Leukocyte Esterase-Dipstick 100 /ul (Negative); Nitrite-Dipstick Negative (Negative); Occult Blood-Urine Negative /ul (Negative); Protein-Dipstick Negative (Negative); Urine Bilirubin Dipstick Negative (Negative); Urine Clarity Clear (Clear); Urine Urobilinogen Normal (Normal)
[2017-12-11 12:14] LABS: POSITIVE COUNT NO; POSITIVE DIFFERENTIAL NO; POSITIVE MORPHOLOGY NO
[2017-12-11 12:42] LABS: ALB/GLOB Ratio 1.1 RATIO (0.9-2.4); AST(SGOT) 21 U/L (15-37); Alanine Aminotransfer ALT/SGPT 44 U/L (13-56); Alkaline Phosphatase 83 U/L (45-117); Anion Gap 5 (5-15); BUN 17 mg/dL (7-18); BUN/Creat Ratio 25.6 RATIO (10-20); Calcium,Total 8.9 mg/dL (8.5-10.1); Chloride 100 mmol/L (98-107); Cholesterol 242 mg/dL (200); Creatinine, Serum 0.66 mg/dL (0.55-1.02); EST Glomerular Filtration Rate 96 mL/min (>60); Est Glom Filt Rate - Afr Amer 116 mL/min (>60); Globulin 3.7 g/dL (2.2-4.2); Glucose 86 mg/dL (74-106); High Density Lipoprotein 59 mg/dL; Potassium 4.4 mmol/L (3.5-5.1); Protein, Total 7.7 g/dL (6.4-8.2); Sodium Level 137 mmol/L (136-145); Thyroid Stim Hormone (TSH) 0.88 uIU/mL (0.358-3.74); Triglycerides 108 mg/dL; Very Low Density Lipoprotein 22 mg/dL (5-40)
== END ==
PROVIDERS: Family Provider Family Medicine; PCP Family Medicine; Visit Provider Family Medicine
DX: Z00.00 Encounter for general adult medical examination without abnormal findings (principal); E78.5 Hyperlipidemia, unspecified; E03.9 Hypothyroidism, unspecified
CPT/HCPCS: 36415; 80053; 80061; 81002; 84443; 85025

== ENCOUNTER → 2018-04-14 09:06 | Outpatient (CLI) | payer OTHER, SELFPAY ==
--- OUTSIDE RECORDS SUMMARY | 2018-04-14 10:15 | XMS RPT_ITS ---
:1955 Author Organization OHIP Care Team Providers Name Role Phone CASSY TREADWELL (FEATHER CURLING MACHINE OPERATOR) Attending Unavailable DENISE SCHRADER (FEATHER CURLING MACHINE OPERATOR) Attending Unavailable Tu Richardson Attending Unavailable Richardson, Tu Primary Care Unavailable Jessica Patel Attending Unavailable Richardson, Tu Primary Care Unavailable Jessica Patel Attending Unavailable Jessica Patel Referring Unavailable Ollie, David Primary Care Unavailable Jessica Patel Attending Unavailable Jessica Patel Referring Unavailable Ollie, David Primary Care Unavailable David Levin Attending Unavailable Ollie, David Referring Unavailable Ollie, David Primary Care Unavailable OllieDaytonDavid Attending Unavailable Ollie, David Referring Unavailable Ollie, David Primary Care Unavailable PROBLEMS PROBLEMS DATE TYPE CONDITION / CODE ATTENDING STATUS SOURCE 04/14/2018 Unknown E78.5 - David Levin Active [place] Hyperlipidemia, Community unspecified / Hospital E78.5(ICD-10) Repository 04/14/2018 Unknown E03.9 - David Levin Active [place] Hypothyroidism, Community unspecified / Hospital E03.9(ICD-10) Repository 12/11/2017 Unknown Z00.00 - David Levin Active [place] Encounter for [facility] medical Repository examination without abnormal findings / Z00.00(ICD-10) 09/03/2017 Unknown N39.0 - Urinary Amanda, Jessica Active [place] tract infection, [facility] site not Hospital specified / Repository N39.0(ICD-10) 09/03/2017 Unknown R30.0 - Dysuria / Amanda, Jessica Active [place] R30.0(ICD-10) [facility] Repository 08/26/2017 Active Unknown / MILECASSY PADILLA Active [facility] UNK(Unknown) (FEATHER CURLING MACHINE OPERATOR) Main [place] Repository 05/12/2017 Unknown HYPOTHYROIDISM, RichardsonTu Active [place] UNSPECIFIED / Community E03.9(ICD-10) Hospital Repository 05/12/2017 Unknown PURE Dylan Tu Active [place] HYPERCHOLESTEROLE [facility], UNSPECIFIED Hospital / E78.00(ICD-10) Repository 05/12/2017 Unknown OTH DISRD OF BONE DylanTu Active [place] DENSITY AND Community [facility], Hospital UNSPECIFIED SITE Repository / M85.80(ICD-10) PROCEDURES PROCEDURES No Procedure Records FoundRESULTS RESULTS URINALYSIS, ROUTINE Collected: 12/11/2017 Status: F Source: [place] (DIPSTICK) 9:31 AM [facility] REPOSITORY Order Comment: How was Urine Obtained? CLEAN CATCH TYPE CODE TESTS RESULT OUT OF RANGE REFERENCE UNITS LAB L400.3000 Normal Yellow COLOR Yellow LAB L400.3050 Normal Clear CLARITY Clear LAB L400.3200 Normal Normal mg/dl GLUCOSE, UR Normal LAB L400.3300 Normal Negative mg/dL BILIRUBIN Negative URINE LAB L400.3400 Normal Negative mg/dl KETONE UR Negative LAB L400.3465 Normal 1.002-1.030 SP.GR. 1.010 DIPSTX LAB L400.3550 Normal 5.0 - 8.0 pH UR 7.0 LAB L400.3600 Normal Negative mg/dl PROT DIPSTX Negative LAB L400.3700 Normal Normal mg/dl UROBILI Normal LAB L400.3750 Normal Negative NITRITE UR Negative LAB L400.3780 Normal Negative /ul OCCULT Negative BLOOD-UR LAB L400.3800 High Negative /ul LEUK 100 ESTERASE Performed By: #### L400.2010 ####[facility] [address] [place], [address] CBC W/DIFF, AUTOMATED Collected: 12/11/2017 Status: F Source: [place]ATHAL[place] 9:31 AM [facility] REPOSITORY TYPE CODE TESTS RESULT OUT OF RANGE REFERENCE UNITS LAB L100.1000 Normal 4.4-11.0 K/mm3 WBC 5.3 LAB L100.1200 Normal 4.2-5.4 M/mm3 RBC 4.87 LAB L100.1300 High 12.0-15.0 g/dl HGB 15.5 LAB L100.1400 Normal 37-47 % HCT 46.2 LAB L100.1500 Normal 81-99 fL MCV 94.9 LAB L100.1600 Normal 27.0-32.0 pg MCH 31.8 LAB L100.1700 Normal 32-36 g/gl MCHC 33.5 LAB L100.1810 Normal 11.6-14.6 % RDW 13.2 CV LAB L100.1820 High 35.1-43.9 fl RDW 45.0 SD LAB L100.1900 Normal 150-450 K/mm3 PLT 173 LAB L100.2000 Normal 6.2-12.0 fl MPV 11.8 LAB L100.2100 Low 47-70 % NEUT% 42.6 LAB L100.2200 High 19-41 % LY% 48.1 LAB L100.2300 Normal 0-10 % MONO% 7.7 LAB L100.2400 Normal 0-5 % EO% 0.8 LAB L100.2500 Normal 0-1 % BASO% 0.8 LAB L100.2550 Normal 0.0-0.9 % IM 0.000 GRAN % Result Comment: IG% - Immature Granulocytes (promyelocytes, myelocytes andmetamyelocytes) > 1% indicates that a LEFT SHIFT is Present. LAB L100.2620 Normal 2.0-7.7 X10 3/uL Absolute Neut 2.3 LAB L100.2720 Normal 0.83-4.51 X10 3/ul Absolute Lymph 2.56 Performed By: #### L100.0100 ####[facility] [place] [facility] [address] [place], [place], [address] COMPREHENSIVE METABOLIC Collected: 12/11/2017 Status: F Source: [place] SAMUEL 9:31 AM [facility] REPOSITORY TYPE CODE TESTS RESULT OUT OF RANGE REFERENCE UNITS LAB L501.0100 Normal 74-106 mg/dL GLU 86 Result Comment: Please note revised GLUCOSE reference range alcrdwcnb09/02/2018. LAB L501.1000 Normal 7-18 mg/dL BUN 17 LAB L501.1100 Normal 0.55-1.02 mg/dL CREAT,SERUM 0.66 Result Comment: The validity of the calculated GFR AND GFRAA in patients over70 years has not been determined. Clinical correlation isessential. LAB L501.1110 Normal >60 mL/min EST GFR 96 Result Comment: Non- GFR Calc LAB L501.1115 Normal >60 mL/min EST GFR - 116 AA Result Comment: GFR Calc LAB L501.1300 High 10-20 RATIO BUN/CRE 25.6 LAB L501.1500 Normal 6.4-8.2 g/dL T PROT 7.7 LAB L501.1800 Normal 3.2-5.0 g/dL ALB 4.0 LAB L501.1950 Normal 2.2-4.2 g/dL GLOB 3.7 LAB L501.2000 Normal 0.9-2.4 RATIO A/G 1.1 LAB L501.2200 Normal 8.5-10.1 mg/dL CA 8.9 LAB L501.4100 Normal 15-37 U/L AST 21 LAB L501.4305 Normal 45-117 U/L ALK P 83 LAB L501.4405 Normal 13-56 U/L ALT 44 Result Comment: Please note revised ALT reference range yzggsottg02/28/2018. LAB L501.4600 Normal 0.20-1.00 mg/dL T BILI 0.40 LAB L501.5300 Normal 136-145 mmol/L NA 137 LAB L501.5600 Normal 3.5-5.1 mmol/L K 4.4 LAB L501.5900 Normal 98-107 mmol/L CL 100 LAB L501.6100 Normal 21.0-32.0 mmol/L CO2 32.0 LAB L501.6200 Normal 5-15 GAP 5 Performed By: #### L500.4050, L500.4100, L501.9520 #### [facility] [place] [facility] [address] [place], [place], [address] LIPID PROFILE Collected: 12/11/2017 Status: F Source: [place] 9:31 AM [facility] REPOSITORY TYPE CODE TESTS RESULT OUT OF RANGE REFERENCE UNITS LAB L501.4900 High 200 mg/dL CHOL 242 Result Comment: <200 mg /dL Desirable 200-240 mg/dL Borderline >240 mg/dL High Risk LAB L501.5000 Normal mg/dL TRIG 108 Result Comment: The drugs N-Acetylcysteine and Metamizole may falselydepress this assay.Serum Triglycerides Reference Interval Normal <150 mg/dL Borderline high 150 - 199 mg/dL High 200 - 499 mg/dL Very High > or = 500 mg/dL LAB L501.6400 Normal mg/dL HDL 59 Result Comment: The drugs N-Acetylcysteine and Metamizole may falselydepress this assay. Reference Range HDL <40 mg/dL Low HDL Cholesterol HDL >or= 60 mg/dL High HDL Cholesterol LAB L501.6500 High 0-130 mg/dL LDL 161 LAB L501.6600 Normal 5-40 mg/dL VLDL 22 Performed By: #### L500.4050, L500.4100, L501.9520 #### [facility] [place] [facility] [address] [place], [place], [address] THYROID STIM HORMONE Collected: 12/11/2017 Status: F Source: [place] (TSH) 9:31 AM [facility] REPOSITORY TYPE CODE TESTS RESULT OUT OF RANGE REFERENCE UNITS LAB L501.9520 Normal 0.358-3.74 uIU/mL TSH 0.88 Performed By: #### L500.4050, L500.4100, L501.9520 #### [facility] [place] [facility] [address] [place], [place], [address] Observed: 10/30/2017 Status: F Source: [place] CULTURE, URINE 3:29 PM [facility] REPOSITORY Urine CultureBelow infection level. ORGANISM 1: Mixed Gram Pos AND Gram Neg OrgColony Count <1000 Performed By: #### M100.0650 ####[facility] [place] [facility] [address] [place], [address] Observed: 09/29/2017 Status: F Source: [place] CULTURE, URINE 4:00 PM [facility] REPOSITORY Urine CultureCopy of report sent to Infection Control Printer [email or web address]#[id number] 10/01/17 1326 BLUCAS. ORGANISM 1: Presumptive E. coliColony Count [...] $ >=320 R(NF) indicates non-formulary drug at [facility] [place] [facility]. Approval by Infectious Disease Specialist required before non-formulary drugs may be ordered and/or dispensed. Performed By: #### M100.0650 ####[facility] [place] [facility] [address] [place], [address] Observed: 09/03/2017 Status: F Source: [place] CULTURE, URINE 10:00 AM [facility] REPOSITORY Urine CultureCopy of report sent to Infection Control Printer [id number] 09/06/17 0725 BLUCAS. ORGANISM 1: Presumptive E. coliColony Count [...] >=320 R(NF) indicates non- formulary drug at [facility]. Approval by Infectious Disease Specialist required before non-formulary drugs may be ordered and/or dispensed. Performed By: #### M100.0650 ####[facility] [place] [facility] [address] [place], [address] OBSOLETE Observed: 08/28/2017 Status: COMPLETED Source: [place] 12:00 AM [facility] REPOSITORY Refill (WOOB) -------BREN MICHAEL ([id number]) 1955 [facility] Time Provider Nygcfmsiwt82/14/17 CASSY TREADWELL (FEATHER CURLING MACHINE OPERATOR) WOOB During your visit today, we recorded the following information about you:Maura Cage RN 08/28/2017 9 :31 AM SignedPatient states that [...] - HivesDate Reviewed: 08/26/2017Reviewed by : Cassy MejiaC[facility] Cod Hospital) [place] - Fully AssessedReason for Visit: Refill [...] THREE TIMES DAILY X 2 DAYSEncounter Number: [id number] Status:Closed by CASSY TREADWELL on Observed: 08/26/2017 Status: F Source: [place] URINE CULTURE 4:39 PM [facility] REPOSITORY Sp. Request/Comment: - Specimen received in preservative THIS WILL PRINT A REQUISITION TO ACCOMPANY THE SPECIMEN TO THE LAB.Culture Result - No growth (<1,000 CFU/ml) Performed By: #### URCUL ####[facility] [place], [place] [phone] PROGRESS Observed: 08/26/2017 Status: COMPLETED Source: [place] 4:32 PM [facility] REPOSITORY HNO ID: [id number]: Cassy Whittington) MetcalfService: (none)Author Type: Nurse PractitionerType: Progress NotesFiled: [...] HX 03/2015 left ankle- HEMORRHOIDOPEXY BY STAPLING - HYSTERECTOMY 07/2016- PAST SURGICAL HISTORY OF Multiple scleral therapies- PAST SURGICAL HISTORY OF 07/2016 TVH, BSO, Uterosacral ligament suspension, Roshan TOT sling, AANDP repair,Cystoscopy- REMOVAL OF TONSILS,<12 Y/O remote Tonsillectomy- THYROIDECTOMY 11/21 total for benign tumorsFAMILY HISTORYProblem Relation Age of Onset- Osteoporosis Mother- Hypertension Mother- Lipids Mother High Cholesterol- Heart Mother 2-GA's- Hypertension Father- Heart Father GA, - Osteoporosis Sister- Osteopenia [OTHER] Sister- Hypertension Sister- Hypertension Brother- Lipids Sister High Cholesterol- Other [OTHER] Other No breast/screening tech/colon cancer- Prostate Cancer BrotherSocial History Marital status: Spouse name: Adama Michael Years of education: Number of children: 2Occupational 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 [employer]*Social History Main Topics Smoking status: Never [...] CNP CNOV Observed: 08/26/2017 Status: COMPLETED Source: [place] 4:30 PM [facility] REPOSITORY Office Visit (WOOB) -------BREN MICHAEL ([id number]) 1955 [facility] Time Provider Voyopqpswt07/12/17 4:30 PM CASSY TREADWELL (CASEY) WOOB During your visit today, we recorded the following information about you: Pulse Respiration Blood pressure Weight 84/minute 18/minute 110/62 64.1 kg Height 1.6 mRENEGinger TREADWELL CNP 08/26/2017 4:48 PM SignedBren Marija Michael is a 62 year old female [...] HX 2014 left ankle- HEMORRHOIDOPEXY BY STAPLING 11-15-15- HYSTERECTOMY 07/2016- PAST SURGICAL HISTORY OF Multiple scleral therapies- PAST SURGICAL HISTORY OF 07/2016 TVH, BSO, Uterosacral ligament suspension, Roshan TOT sling, AANDamp;P repair,Cystoscopy- REMOVAL OF TONSILS,ANDlt;12 Y/O remote Tonsillectomy- THYROIDECTOMY 11/21 total for benign tumorsFAMILY HISTORYProblem Relation Age of Onset- Osteoporosis Mother- Hypertension Mother- Lipids Mother High Cholesterol- Heart Mother 2- GA's- Hypertension Father- Heart Father GA, - Osteoporosis Sister- Osteopenia [OTHER] Sister- Hypertension Sister- Hypertension Brother- Lipids Sister High Cholesterol- Other [OTHER] Other No breast/screening tech/colon cancer- Prostate Cancer BrotherSocial History Marital status : Spouse name: Adama Michael Years of education: Number of children: 2Occupational 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 FOR 3 DAYS.Disp: 6 tabletRfl: 0 URINE CULTURE [SQURCUL] Order #: [id number] as of 08/26/2017 Sig: SENNA LAX ORAL [...] 05/07/2017 Status: F Source: [place] 9:19 AM [facility] REPOSITORY Order Comment: Order Date: 05/05/17Order Info: [...] By: #### L100.0100, L506.1000, L500.2500, L500.4100, L501.9520 ####[place] [facility] [address] [place], [address] VITAMIN D,25 HYDROXY Collected: 05/07/2017 Status: F Source: [place] 9:19 AM [facility] REPOSITORY Order Comment: Order Date: 05/05/17Order Info: [id number] - VITD25 TYPE CODE TESTS RESULT OUT OF RANGE REFERENCE UNITS LAB L506.1000 Normal ng/mL Vitamin 38.9 D 25-OH Result Comment: Vitamin D 25(OH) Status Range Deficiency <20 ng/mL (50nmol/L) Insuffciency 20 - 30 ng/mL (50 - 75 nmol/L) Sufficiency 30 - 100 ng/mL (75 - 250 nmol/L) Toxicity >100 ng/mL (>250 nmol/L) Performed By: #### L100.0100, L506.1000, L500.2500, L500.4100, L501.9520 ####[facility] [place] [facility] [address], [place], [address] BASIC METABOLIC Collected: 05/07/2017 Status: F Source: [place] PROFILE (BMP) 9:19 AM [facility] REPOSITORY Order Comment: Order Date: 05/05/17Order Info: [id number] - BMPOrder Info: [id number] - LIPIDOrder Info: [id number] - TSH TYPE [...] By: #### L100.0100, L506.1000, L500.2500, L500.4100, L501.9520 ####[facility] [place] [facility] [address] [place], [place], [address] LIPID PROFILE Collected: 05/07/2017 Status: F Source: [place] 9:19 AM [facility] REPOSITORY Order Comment: Order Date: 05/05/17Order Info: [id number] - BMPOrder Info: [id number] - LIPIDOrder Info: [id number] - TSH TYPE CODE TESTS RESULT OUT OF RANGE REFERENCE UNITS LAB L501.4900 High 200 mg/dL CHOL 247 Result Comment: <200 mg /dL Desirable 200-240 mg/dL Borderline >240 mg/dL High Risk LAB L501.5000 Normal mg/dL TRIG 105 Result Comment: The drugs N-Acetylcysteine and Metamizole may falsely deressthis assay.Serum Triglycerides Reference Interval Normal <150 mg/dL Borderline high 150 - 199 mg/dL High 200 - 499 mg/dL Very High > or = 500 mg/dL LAB L501.6400 Normal mg/dL HDL 57 Result Comment: The drugs N-Acetylcysteine and Metamizole may falsely deressthis assay. Reference Range HDL <40 mg /dL Low HDL Cholesterol HDL >or= 60 mg/dL High HDL Cholesterol LAB L501.6500 High 0-130 mg/dL LDL 169 LAB L501.6600 Normal 5-40 mg/dL VLDL 21 Performed By: #### L100.0100, L506.1000, L500.2500, L500.4100, L501.9520 ####[facility] [place] [facility] [address] [place], [address] THYROID STIM HORMONE Collected: 05/07/2017 Status: F Source: [place] (TSH) 9:19 AM [facility] REPOSITORY Order Comment: Order Date: 05/05/17Order Info: [id number] - BMPOrder Info: [id number] - LIPIDOrder Info: [id number] - TSH TYPE CODE TESTS RESULT OUT OF RANGE REFERENCE UNITS LAB L501.9520 Normal 0.358-3.74 uIU/mL TSH 0.60 Performed By: #### L100.0100, L506.1000, L500.2500, L500.4100, L501.9520 ####[facility] [place] [facility] [address] [place], [address] Observed: 05/04/2017 Status: F Source: [place] URINE CULTURE 9:23 PM [facility] REPOSITORY Sp. Request/Comment: - Specimen received [...] SUSCEPTIBLE <=0.5 F Performed By: #### URCUL ####[facility] [address] [place], [place] [id number] PROGRESS Observed: 05/04/2017 Status: COMPLETED Source: [place] 3:34 PM [facility] REPOSITORY HNO ID: [id number]: Denise (Rayon Winder) OlderService: (none) Author Type: Nurse PractitionerType: Progress NotesFiled: 05/04/2017 4:14 PMNote Text: CC: Patient presents with:UTI: burning with urination and frequency x 3 daysLydia Marija Michael is a 61 year old [...] 64kg (141 lb) LMP 10/04/2010 BMI 24.2 kg/a8Zlkyzmc: Well appearing and alertCV: Regular rate and rhythm without obvious murmurLungs: clear to auscultation bilaterallyBack: no CVA tendernessAbdomen: soft, nontender, nondistendedComponent Latest Ref Rng AND Units 05/04/2017Glucose, Urine Neg mg/dL negBilirubin, Urine Neg negKetones, Urine Neg negSpecific [place], Ur 1.005 - 1.030 1.010Hemoglobin/Blood,Ur Neg tracepH, [...] symptoms persist- UA DIP B/O- URINE CULTUREDenise Schrader CNP CNOV Observed: 05/04/2017 Status: COMPLETED Source: [place] 3:15 PM [facility] REPOSITORY Office Visit (UCWSTR) ---------ROSETTEBREN ([id number]) 1955 [facility] Time Provider Department05/04/17 3:15 PM DENISE SCHRADER (CASEY) UCWSTR During your visit today, we recorded the following information about you: Temperature Pulse Respiration Blood pressure 98.6 degrees 83/minute 14/minute 116/70 Weight 64 kgNarenetta Schrader CNP 05/04/2017 4:14 PM SignedCC: Patient presents with:UTI: burning with urination and frequency x 3 daysLydia Dutton Alec is a 61 year old female who [...] 64 kg(141 lb) LMP 10/04/2010 BMI 24.2 kg/z8Fgssipy: Well appearing and alertCV: Regular rate and rhythm without obvious murmurLungs: clear to auscultation bilaterallyBack: no CVA tendernessAbdomen: soft, nontender, nondistendedComponent Latest Ref Rng ANDamp ; Units 05/04/2017Glucose, Urine Neg mg/dL negBilirubin, Urine Neg negKetones, Urine Neg negSpecific [place], Ur 1.005 - 1.030 1.010Hemoglobin/Blood,Ur Neg tracepH, [...] - HivesDate Reviewed: 05/04/2017Reviewed by: Keny Bains Cma - Fully AssessedReason for Visit: UTI [116] Cmt: burning with urination and frequency x 3 daysPrimary Visit Diagnosis:Burning with urination [R30.0]Order(s):UA DIP B/O [[id number]] Order # : [id number] URINE CULTURE [SQURCUL] Order #: [id number] ciprofloxacin HCl (CIPRO) 250 mg tabletTake 1 [...] encounter PHENAZOPYRIDINE 200 MG TABLET >> Keny Bains Cma 05/04/2017 3:18 PM >> KENY BAINS CMA May 04, 2017 3:18 PM Not taking ESTRADIOL 10 MCG VAGINAL TABLET >> Keny Bains Cma 05/04/2017 3:17 PM >&gt ; KENY BAINS CMA May 04, 2017 3:17 PM Not taking FERROUS SULFATE 325 MG (65 MG IRON) TABLET >> Keny Bains Cma 05/04/2017 3:17 PM >> MATT KENY ALDRIDGE May 04, 2017 3:17 PM Not taking OTC NUTRITIONAL SUPPLEMENT >> Keny Bains Cma 05/04/2017 3:18 PM >&gt ; MATT KENY ALDRIDGE May 04, 2017 3:18 PMProblem List As [...] Status:Closed by DENISE SCHRADER CNP on 05/04/17 ALLERGIES ALLERGIES DATE TYPE / NAME / CODE REACTION SEVERITY SOURCE CODE 04/01/2015 Drug nitrofurantoin Hives Unknown [place] Allergy/41 macrocrystalline/F0000 [facility] [id number]([facility](RXNORM) [facility]) Repository 04/01/2015 Drug nitrofurantoin Hives [place] Allergy/41 macrocrystalline/F0000 [facility] [id number]([facility](RXNORM) [facility]) Repository 05/06/2006 DRUG NITROFURANTOIN HIVES [place] INGREDI/41 MACROCRYSTALLINE Clinic Main [id number]([facility]) Repository ENCOUNTERS ENCOUNTERS ADMIT/DISCHARGE ACCOUNT ADMITTING ENCOUNTER LOCATION SOURCE NUMBER CLASS 04/14/[id number] [facility] ing:MTLAB Repository 12/11/[id number] [facility] ing:MTLAB Repository 10/30/[id number] [facility] ing:LAB Repository 09/29/2017 [id number] [facility] ing:LABSPEC Repository 09/03/[id number] [facility] ing:LABSPEC Repository 08/26/2017/08/26/20 [id number] Ambulatory [address] Repository 05/07/2017 [id number] [facility] ing:MTLAB Repository 05/04/2017/05/04/20 [id number] Ambulatory [address] Repository PAYERS PAYERS ENCOUNTER GUARANTOR PAYER SUBSCRIBER SOURCE 04/14/2018 BREN J Primary BREN J [place] [id number] Insurance:GPATPA CHARLESTONDOB: [facility] Number: [id number], [place] [id number] Repository [address]Zaw: 330) Date:8073-30-45XZ [phone] () [id number], [place] [address]GC: 04/14/2018 Secondary NOT GIVENUNK [place] Insurance:SELF PAY [facility] Number: Effective Repository Date:2018-04-14 12/11/2017 BREN J Primary BREN J [place] [id number] [facility] Number: [id number], [place] [id number] Repository [address]Mbo: 330) Date:2886-21-85AI [phone] () [phone], [place] [address]AF: 12/11/2017 Secondary NOT GIVENUNK [place] Insurance:SELF PAY [facility] Number: Effective Repository Date:2017-12-11 10/30/2017 Adama E Primary Adama E [place] [id number] Insurance:GPATPA HeraldDOB: [facility] [place] CERCOPolicy Number: [id number] Rock, [place] [id number] Repository [address]Fhk: Date:[phone] [id number], [place] -2 (HP) [phone]: 10/30/2017 Secondary NOT GIVENUNK [place] Insurance:SELF PAY [facility] Number: Effective Repository Date:2017-10-30 09/29/2017 BREN J Primary NOT GIVENUNK [place] [id number] Insurance:SELF PAY [place] Number: Effective Repository [id number]: (330) Date:2017-09-29 [phone] (HP) 09/03/2017 Adama E Primary Adama E [place] [id number] Insurance:GPATPA HeraldDOB: [facility] Number: [id number] [place], [place] [id number] Repository [address]Eop: Date:1223-45-93JE [phone] 325[address]CNSSVN, [place] -2 (HP) [phone]: 09/03/2017 Secondary NOT GIVENUNK [place] Insurance:SELF PAY [facility] Number: Effective Repository Date:2017-09-03 05/07/2017 ADAMA E Primary ADAMA E [place] [id number] Insurance:GPATPA HERALDDOB[facility] Number: [id number], [place] [id number] Repository [address]Aeu: ([phone]) Date:[phone] ([place]) [address]TJOPKE, [place] [address]KT:
[2018-04-14 11:12] LABS: AST(SGOT) 30 U/L (15-37); Alanine Aminotransfer ALT/SGPT 58 U/L (13-56); Alkaline Phosphatase 95 U/L (45-117); Bilirubin, Direct 0.13 mg/dL (0.00-0.30); Cholesterol 173 mg/dL (200); Globulin 3.8 g/dL (2.2-4.2); High Density Lipoprotein 56 mg/dL; Protein, Total 7.8 g/dL (6.4-8.2); Thyroid Stim Hormone (TSH) 0.25 uIU/mL (0.358-3.74); Triglycerides 145 mg/dL; Very Low Density Lipoprotein 29 mg/dL (5-40)
== END ==
PROVIDERS: Family Provider Family Medicine; PCP Family Medicine; Visit Provider Family Medicine
DX: E03.9 Hypothyroidism, unspecified (principal); E78.5 Hyperlipidemia, unspecified
CPT/HCPCS: 36415; 80061; 80076; 84443

== ENCOUNTER → 2018-05-21 17:29 | Outpatient (CLI) | payer OTHER, SELFPAY | PROVIDERS: Family Provider Family Medicine; PCP Family Medicine; Visit Provider Nurse Practitioner Adult Health | DX: R30.0 Dysuria (principal) | CPT/HCPCS: 87086; 87088; 87186 ==

== ENCOUNTER → 2018-05-27 11:45 | Outpatient (CLI) | payer OTHER, SELFPAY ==
[2018-05-27 12:58] VITALS: BP 130/86; PULSE 82; RESP 16; TEMP 37.2; O2SAT 98; BMI 24.4
== END ==
PROVIDERS: Family Provider Family Medicine; PCP Family Medicine; Visit Provider Nurse Practitioner Adult Health
DX: N39.0 Urinary tract infection, site not specified (principal); Z16.12 Extended spectrum beta lactamase (ESBL) resistance
CPT/HCPCS: 96365; J7050; A4216

== ENCOUNTER → 2018-05-28 11:56 | Outpatient (CLI) | payer OTHER, SELFPAY ==
[2018-05-28 12:20] VITALS: BP 138/79; PULSE 75; RESP 16; TEMP 36.8; O2SAT 100
== END ==
PROVIDERS: Family Provider Family Medicine; PCP Family Medicine; Visit Provider Nurse Practitioner Adult Health
DX: N39.0 Urinary tract infection, site not specified (principal); Z16.12 Extended spectrum beta lactamase (ESBL) resistance
CPT/HCPCS: 96365; J7050; A4216

== ENCOUNTER → 2018-05-29 11:57 | Outpatient (CLI) | payer OTHER, SELFPAY ==
[2018-05-29 12:21] VITALS: BP 134/82; PULSE 85; RESP 16; TEMP 36.7; BMI 24.4
== END ==
PROVIDERS: Family Provider Family Medicine; PCP Family Medicine; Visit Provider Nurse Practitioner Adult Health
DX: N39.0 Urinary tract infection, site not specified (principal); Z16.12 Extended spectrum beta lactamase (ESBL) resistance
CPT/HCPCS: 96365; J7050; A4216

== ENCOUNTER 2018-05-30 11:50 | Outpatient (CLI) | payer OTHER, SELFPAY ==
[2018-05-30 12:05] VITALS: BP 131/85; PULSE 82; RESP 18; TEMP 37; O2SAT 100
[2018-05-30] MEDS: 0.9% NaCl Peripheral Flush Adult/Peds IV ×2 (12:10→12:47)
== END 2018-05-30 12:50 | disposition home or self-care (01) ==
LOC: MEDOUTP 11:51 → MS2 11:53
PROVIDERS: Family Provider Family Medicine; PCP Family Medicine; Visit Provider Nurse Practitioner Adult Health
DX: N39.0 Urinary tract infection, site not specified (principal); Z16.12 Extended spectrum beta lactamase (ESBL) resistance
CPT/HCPCS: 96365; A4216

== ENCOUNTER 2018-05-31 12:11 | Outpatient (CLI) | payer OTHER, SELFPAY ==
[2018-05-31] MEDS: 0.9% NaCl Peripheral Flush Adult/Peds IV ×2 (12:33→13:23)
[2018-05-31 12:42] VITALS: BP 118/72; PULSE 83; RESP 18; TEMP 36.8
== END 2018-05-31 13:35 | disposition home or self-care (01) ==
LOC: MEDOUTP 12:12 → MS3 12:13
PROVIDERS: Family Provider Family Medicine; PCP Family Medicine; Visit Provider Nurse Practitioner Adult Health
DX: N39.0 Urinary tract infection, site not specified (principal); Z16.12 Extended spectrum beta lactamase (ESBL) resistance
CPT/HCPCS: 96365; J7050; A4216

== ENCOUNTER → 2018-06-01 11:52 | Outpatient (CLI) | payer OTHER, SELFPAY ==
[2018-06-01 12:14] VITALS: BP 130/80; PULSE 86; RESP 16; TEMP 36.6
== END ==
PROVIDERS: Family Provider Family Medicine; PCP Family Medicine; Visit Provider Nurse Practitioner Adult Health
DX: N39.0 Urinary tract infection, site not specified (principal); Z16.12 Extended spectrum beta lactamase (ESBL) resistance
CPT/HCPCS: 96365; 96366; J7050; A4216

== ENCOUNTER → 2018-06-02 12:03 | Outpatient (CLI) | payer OTHER, SELFPAY ==
[2018-06-02 12:14] VITALS: BP 127/79; PULSE 86; RESP 16; TEMP 37; O2SAT 96
[2018-06-02 12:20] VITALS: BMI 24.4
== END ==
PROVIDERS: Family Provider Family Medicine; PCP Family Medicine; Visit Provider Nurse Practitioner Adult Health
DX: N39.0 Urinary tract infection, site not specified (principal); Z16.12 Extended spectrum beta lactamase (ESBL) resistance
CPT/HCPCS: 96365; J7050; A4216

== ENCOUNTER → 2018-06-03 12:04 | Outpatient (CLI) | payer OTHER, SELFPAY ==
[2018-06-03 12:19] VITALS: BP 100/72; PULSE 87; RESP 16; TEMP 36.8; O2SAT 98
== END ==
PROVIDERS: Family Provider Family Medicine; PCP Family Medicine; Visit Provider Nurse Practitioner Adult Health
DX: N39.0 Urinary tract infection, site not specified (principal); Z16.12 Extended spectrum beta lactamase (ESBL) resistance
CPT/HCPCS: 96365; J7050; A4216

== ENCOUNTER → 2018-06-04 11:57 | Outpatient (CLI) | payer OTHER, SELFPAY ==
[2018-06-04 12:20] VITALS: BP 115/83; PULSE 85; RESP 16; TEMP 37.2; O2SAT 95; BMI 24.0
== END ==
PROVIDERS: Family Provider Family Medicine; PCP Family Medicine; Visit Provider Nurse Practitioner Adult Health
DX: N39.0 Urinary tract infection, site not specified (principal); Z16.12 Extended spectrum beta lactamase (ESBL) resistance
CPT/HCPCS: 96365; J7040; A4216

== ENCOUNTER → 2018-06-05 11:53 | Outpatient (CLI) | payer OTHER, SELFPAY ==
[2018-06-05 12:12] VITALS: BP 123/76; PULSE 83; RESP 15; TEMP 37.1; O2SAT 100; BMI 24.4
== END ==
PROVIDERS: Family Provider Family Medicine; PCP Family Medicine; Visit Provider Nurse Practitioner Adult Health
DX: N39.0 Urinary tract infection, site not specified (principal); Z16.12 Extended spectrum beta lactamase (ESBL) resistance
CPT/HCPCS: 96365; J7050; A4216

== ENCOUNTER 2018-06-06 11:45 | Outpatient (CLI) | payer OTHER, SELFPAY ==
[2018-06-06] MEDS: 0.9% NaCl IVPB Med Flush (250 mL) 15 ML IV (12:57)
[2018-06-06 12:59] VITALS: BP 115/72; PULSE 84; RESP 18; TEMP 36.9; O2SAT 97; BMI 24.4
== END 2018-06-06 14:03 | disposition home or self-care (01) ==
LOC: MS2OUT 11:46 → MS2 11:47
PROVIDERS: Family Provider Family Medicine; PCP Family Medicine; Visit Provider Nurse Practitioner Adult Health
DX: N39.0 Urinary tract infection, site not specified (principal); Z16.12 Extended spectrum beta lactamase (ESBL) resistance
CPT/HCPCS: 96365; J7050; A4216

== ENCOUNTER → 2018-06-07 14:18 | Outpatient (CLI) | payer OTHER, SELFPAY | PROVIDERS: Family Provider Family Medicine; PCP Family Medicine; Visit Provider Nurse Practitioner Adult Health | DX: N39.0 Urinary tract infection, site not specified (principal); Z16.12 Extended spectrum beta lactamase (ESBL) resistance | CPT/HCPCS: 96365 ==

== ENCOUNTER → 2018-06-08 11:49 | Outpatient (CLI) | payer OTHER, SELFPAY ==
[2018-06-08 12:00] VITALS: BP 134/81; PULSE 87; RESP 16; TEMP 36.6; O2SAT 98; BMI 24.4
== END ==
PROVIDERS: Family Provider Family Medicine; PCP Family Medicine; Visit Provider Nurse Practitioner Adult Health
DX: N39.0 Urinary tract infection, site not specified (principal); Z16.12 Extended spectrum beta lactamase (ESBL) resistance
CPT/HCPCS: 96365; J7050; A4216

== ENCOUNTER → 2018-06-09 11:50 | Outpatient (CLI) | payer OTHER, SELFPAY ==
[2018-06-09 11:58] VITALS: BP 137/80; PULSE 86; RESP 18; TEMP 36.9; O2SAT 99
== END ==
PROVIDERS: Referring Provider Nurse Practitioner Adult Health; Visit Provider Nurse Practitioner Adult Health
DX: N39.0 Urinary tract infection, site not specified (principal); Z16.12 Extended spectrum beta lactamase (ESBL) resistance
CPT/HCPCS: 96365; J7050; A4216

== ENCOUNTER → 2018-06-10 11:56 | Outpatient (CLI) | payer OTHER, SELFPAY ==
[2018-06-10 12:08] VITALS: BP 128/71; PULSE 86; RESP 18; TEMP 36.7; O2SAT 96
== END ==
PROVIDERS: Visit Provider Nurse Practitioner Adult Health
DX: N39.0 Urinary tract infection, site not specified (principal); Z16.12 Extended spectrum beta lactamase (ESBL) resistance
CPT/HCPCS: 96365; J7050; A4216

== ENCOUNTER → 2018-07-16 14:05 | Outpatient (CLI) | payer OTHER, SELFPAY | PROVIDERS: Referring Provider Family Medicine; Visit Provider Family Medicine | DX: E03.9 Hypothyroidism, unspecified (principal) | CPT/HCPCS: 36415; 84443 ==

== ENCOUNTER → 2018-09-16 08:23 | Outpatient (CLI) | payer OTHER, SELFPAY ==
[2018-09-16 10:54] LABS: AST(SGOT) 24 U/L (15-37); Alanine Aminotransfer ALT/SGPT 45 U/L (13-56); Albumin, Serum 3.9 g/dL (3.2-5.0); Alkaline Phosphatase 90 U/L (45-117); Cholesterol 210 mg/dL (200); Globulin 3.6 g/dL (2.2-4.2); High Density Lipoprotein 61 mg/dL; Protein, Total 7.5 g/dL (6.4-8.2); Thyroid Stim Hormone (TSH) 1.52 uIU/mL (0.358-3.74); Triglycerides 112 mg/dL; Very Low Density Lipoprotein 22 mg/dL (5-40)
== END ==
PROVIDERS: Referring Provider Family Medicine; Visit Provider Family Medicine
DX: E03.9 Hypothyroidism, unspecified (principal); E78.5 Hyperlipidemia, unspecified
CPT/HCPCS: 36415; 80061; 80076; 84443

== ENCOUNTER → 2018-12-25 | Outpatient (CLI) | payer OTHER, SELFPAY ==
[2018-12-25 12:29] VITALS: BMI 25.2
[2018-12-25 15:49] LABS: Bacteria 0 SEEN /hpf (None Seen); Mucous, Urine 0 SEEN /hpf (<or=2+); Red Blood Cells-Urine 0 SEEN /hpf (0-5)
[2018-12-25 16:00] LABS: Color, Urine Yellow (Yellow); Glucose, Dipstick Normal (Normal); Ketone-Dipstick Negative (Negative); Leukocyte Esterase-Dipstick 500 /ul (Negative); Nitrite-Dipstick Positive (Negative); Occult Blood-Urine 150 /ul (Negative); Protein-Dipstick Negative (Negative); Specific Gravity, Urine 1.005 (1.002-1.030); Urine Bilirubin Dipstick 1 mg/dL (Negative); Urine Clarity Cloudy (Clear); Urine Urobilinogen 1 mg/dl (Normal); Urine pH 6.5 (5.0 - 8.0)
[2018-12-25 16:38] LABS: Squamous Epithelial Cells - UA 0-5 SEEN /hpf (5-10)
[2018-12-25 16:39] LABS: White Blood Cells 25-50 SEEN /hpf (0-5)
[2018-12-25 16:40] LABS: Transitional Epithelial - Ur 0-5 SEEN /hpf (0-5)
== END | disposition home or self-care (01) ==
LOC: LABSPEC 15:27
PROVIDERS: Referring Provider Physician Assistant Surgical; Visit Provider Physician Assistant Surgical
DX: R30.0 Dysuria (principal)
CPT/HCPCS: 81001; 87086; 87088

== ENCOUNTER → 2019-01-07 | Outpatient (CLI) | payer OTHER, SELFPAY ==
[2019-01-07 08:48] VITALS: BMI 25.2
[2019-01-07 14:13] LABS: Mucous, Urine 0 SEEN /hpf (<or=2+)
[2019-01-07 14:21] LABS: Color, Urine Yellow (Yellow); Glucose, Dipstick Normal (Normal); Ketone-Dipstick Negative (Negative); Leukocyte Esterase-Dipstick 500 /ul (Negative); Nitrite-Dipstick Negative (Negative); Occult Blood-Urine 150 /ul (Negative); Protein-Dipstick Negative (Negative); Urine Bilirubin Dipstick Negative (Negative); Urine Clarity Sl. Cloudy (Clear); Urine Urobilinogen Normal (Normal)
[2019-01-07 14:28] LABS: Bacteria RARE /hpf (None Seen); Red Blood Cells-Urine 0-5 SEEN /hpf (0-5); Squamous Epithelial Cells - UA 0-5 SEEN /hpf (5-10); White Blood Cells 5-10 SEEN /hpf (0-5)
== END | disposition home or self-care (01) ==
LOC: LABSPEC 13:59
PROVIDERS: Referring Provider Physician Assistant; Visit Provider Physician Assistant
DX: R30.0 Dysuria (principal)
CPT/HCPCS: 81001; 87086; 87088

== ENCOUNTER → 2019-01-14 | Outpatient (CLI) | payer OTHER, SELFPAY ==
[2019-01-07 08:48] VITALS: BMI 25.2
--- NOTE | 2019-01-14 12:28 | US_ITS ---
STUDY: RENAL ULTRASOUND - COMPLETE REASON FOR EXAM: Female, 63 years old. Chronic UTI TECHNIQUE: Ultrasound evaluation of the kidneys was performed with real-time and static heller-scale imaging. COMPARISON: None. FINDINGS: RIGHT KIDNEY: Normal location of the right kidney, which is normal in size. The right kidney measures 11.5 cm. There is a normal cortex of the right kidney. The renal cortex measures 1.3 cm. There is no right renal mass or cyst. There are no right renal calculi. There is no right hydronephrosis. DISTAL RIGHT URETER: There is non-visualization of the distal right ureter. There is no demonstrated right ureterovesical junction calculus. There is a visualized right ureteral jet. LEFT KIDNEY: Normal location of the left kidney, which is normal in size. The left kidney measures 11.4 cm. There is a normal cortex of the left kidney. The renal cortex measures 1.3 cm. There is no left renal mass or cyst. There are no left renal calculi. There is no left hydronephrosis. DISTAL LEFT URETER: There is non-visualization of the distal left ureter. There is no demonstrated left ureterovesical junction calculus. There is a visualized left ureteral jet. BLADDER: The distended urinary bladder has a volume of 600 ml. The empty urinary bladder has a volume of 219 ml. There is a normal wall thickness of the distended urinary bladder. There is no demonstrated mass within the urinary bladder. There are no demonstrated bladder calculi. US/Kidney and Bladder IMPRESSION: Normal ultrasound of the kidneys and urinary bladder. Electronically Signed: Shin Keyes, at 13:45 EDT Tel , Service support ,
== END | disposition home or self-care (01) ==
PROVIDERS: Referring Provider Urology; Visit Provider Urology
DX: Z87.440 Personal history of urinary (tract) infections (principal)
CPT/HCPCS: 76770

== ENCOUNTER → 2019-05-14 | Outpatient (CLI) | payer OTHER, SELFPAY ==
[2019-01-07 08:48] VITALS: BMI 25.2
[2019-05-14 12:38] LABS: Color, Urine Yellow (Yellow); Glucose, Dipstick Normal (Normal); Ketone-Dipstick Negative (Negative); Leukocyte Esterase-Dipstick Negative /ul (Negative); Nitrite-Dipstick Negative (Negative); Occult Blood-Urine Negative /ul (Negative); Protein-Dipstick Negative (Negative); Specific Gravity, Urine 1.005 (1.002-1.030); Urine Bilirubin Dipstick Negative (Negative); Urine Clarity Clear (Clear); Urine Urobilinogen Normal (Normal)
[2019-05-14 12:44] LABS: Absolute Neutrophil Count 2.2 X10^3/uL (2.0-7.7); Basophil# 0.03 X10^3/uL; Basophil% 0.7 % (0-1); Eosinophil# 0.03 X10^3/uL; Eosinophils% 0.7 % (0-5); Hematocrit 45.2 % (37-47); Hemoglobin 14.7 g/dL (12.0-15.0); Lymphocyte % 39.6 % (19-41); Mean Corp Hgb Conc 32.5 g/dL (32-36); Mean Corpuscular Hgb 31.7 pg (27.0-32.0); Mean Corpuscular Volume 97.4 fL (81-99); Mean Platelet Vol. 11.5 fl (6.2-12.0); Monocyte# 0.32 X10^3/uL; Monocyte% 7.5 % (0-10); NRBC Flagged by Analyzer 0 % (0-5); Neutrophil % 51.3 % (47-70); Platelet Count 184 K/mm3 (150-450); RBC Distribution Width CV 12.9 % (11.6-14.6); Red Blood Count 4.64 M/mm3 (4.2-5.4); White Blood Count 4.3 K/mm3 (4.4-11.0)
[2019-05-14 13:06] LABS: ALB/GLOB Ratio 0.9 RATIO (0.9-2.4); AST(SGOT) 24 U/L (15-37); Alanine Aminotransfer ALT/SGPT 56 U/L (13-56); Albumin, Serum 3.6 g/dL (3.2-5.0); Alkaline Phosphatase 97 U/L (45-117); Anion Gap 5 (5-15); BUN 17 mg/dL (7-18); BUN/Creat Ratio 24.5 RATIO (10-20); Calcium,Total 8.6 mg/dL (8.5-10.1); Chloride 102 mmol/L (98-107); Cholesterol 194 mg/dL (200); Creatinine, Serum 0.69 mg/dL (0.55-1.02); EST Glomerular Filtration Rate 91 mL/min (>60); Est Glom Filt Rate - Afr Amer 110 mL/min (>60); Globulin 3.8 g/dL (2.2-4.2); Glucose 80 mg/dL (74-106); High Density Lipoprotein 56 mg/dL; Potassium 4.1 mmol/L (3.5-5.1); Protein, Total 7.4 g/dL (6.4-8.2); Sodium Level 136 mmol/L (136-145); Thyroid Stim Hormone (TSH) 2.49 uIU/mL (0.358-3.74); Triglycerides 83 mg/dL; Very Low Density Lipoprotein 17 mg/dL (5-40)
== END | disposition home or self-care (01) ==
LOC: MTLAB 09:41
PROVIDERS: Referring Provider Family Medicine; Visit Provider Family Medicine
DX: Z00.00 Encounter for general adult medical examination without abnormal findings (principal); E78.5 Hyperlipidemia, unspecified; E03.9 Hypothyroidism, unspecified
CPT/HCPCS: 36415; 80053; 80061; 81002; 84443; 85025

== ENCOUNTER → 2020-02-10 10:44 | Outpatient (CLI) | payer OTHER, SELFPAY ==
[2019-09-13 14:47] VITALS: BMI 25.2
[2020-02-10 12:55] LABS: AST(SGOT) 27 U/L (15-37); Alanine Aminotransfer ALT/SGPT 42 U/L (13-56); Albumin, Serum 3.8 g/dL (3.2-5.0); Alkaline Phosphatase 95 U/L (45-117); Bilirubin, Direct 0.14 mg/dL (0.00-0.30); Cholesterol 196 mg/dL (200); Globulin 3.8 g/dL (2.2-4.2); High Density Lipoprotein 60 mg/dL; Protein, Total 7.6 g/dL (6.4-8.2); Thyroid Stim Hormone (TSH) 2.66 uIU/mL (0.358-3.74); Triglycerides 112 mg/dL; Very Low Density Lipoprotein 22 mg/dL (5-40)
== END ==
PROVIDERS: Referring Provider Family Medicine; Visit Provider Family Medicine
DX: E78.5 Hyperlipidemia, unspecified (principal); E03.9 Hypothyroidism, unspecified
CPT/HCPCS: 36415; 80061; 80076; 84443

== ENCOUNTER → 2021-02-23 09:24 | Outpatient (CLI) | payer MEDICARE, OTHER, SELFPAY ==
[2021-01-31 11:15] VITALS: BMI 25.2
[2021-02-23 12:20] LABS: Absolute Neutrophil Count 2.6 X10^3/uL (2.0-7.7); Basophil# 0.04 X10^3/uL; Basophil% 0.8 % (0-1); Eosinophil# 0.06 X10^3/uL; Eosinophils% 1.2 % (0-5); Hematocrit 47.6 % (37-47); Lymphocyte % 39.1 % (19-41); Mean Corp Hgb Conc 31.5 g/dL (32-36); Mean Corpuscular Hgb 30.5 pg (27.0-32.0); Mean Corpuscular Volume 96.7 fL (81-99); Monocyte# 0.38 X10^3/uL; Monocyte% 7.4 % (0-10); NRBC Flagged by Analyzer 0 % (0-5); Neutrophil # 2.63 X10^3/uL (2.7-7.7); Neutrophil % 51.3 % (47-70); Platelet Count 203 K/mm3 (150-450); RBC Distribution Width CV 13.4 % (11.6-14.6); RBC Distribution Width SD 47.9 fl (35.1-43.9); Red Blood Count 4.92 M/mm3 (4.2-5.4); White Blood Count 5.1 K/mm3 (4.4-11.0)
[2021-02-23 12:23] LABS: Vitamin D,25 Hydroxy 34.7 ng/mL
[2021-02-23 12:29] LABS: AST(SGOT) 21 U/L (15-37); Alanine Aminotransfer ALT/SGPT 40 U/L (13-56); Albumin, Serum 3.7 g/dL (3.2-5.0); Alkaline Phosphatase 101 U/L (45-117); Anion Gap 5 (5-15); BUN 17 mg/dL (7-18); BUN/Creat Ratio 23.4 RATIO (10-20); Chloride 102 mmol/L (98-107); Cholesterol 232 mg/dL (200); Creatinine, Serum 0.73 mg/dL (0.55-1.02); EST Glomerular Filtration Rate 85 mL/min (>60); Est Glom Filt Rate - Afr Amer 103 mL/min (>60); Free T3 2.5 pg/mL (2.18-3.98); Globulin 3.7 g/dL (2.2-4.2); Glucose 86 mg/dL (74-106); High Density Lipoprotein 60 mg/dL; Potassium 3.9 mmol/L (3.5-5.1); Protein, Total 7.4 g/dL (6.4-8.2); Sodium Level 141 mmol/L (136-145); T4 Free Direct 1.02 ng/dL (0.76-1.46); Triglycerides 114 mg/dL; Very Low Density Lipoprotein 23 mg/dL (5-40)
== END ==
PROVIDERS: PCP Internal Medicine; Referring Provider Internal Medicine; Visit Provider Internal Medicine
DX: E55.9 Vitamin D deficiency, unspecified (principal); E78.5 Hyperlipidemia, unspecified; E89.0 Postprocedural hypothyroidism
CPT/HCPCS: 36415; 80053; 80061; 82306; 84439; 84443; 84481; 85025

== ENCOUNTER → 2021-06-15 14:29 | Outpatient (CLI) | payer MEDICARE, OTHER, SELFPAY ==
[2021-06-15 15:25] LABS: Free T3 2.2 pg/mL (2.18-3.98); T4 Free Direct 1.03 ng/dL (0.76-1.46)
== END ==
PROVIDERS: PCP Internal Medicine; Referring Provider Internal Medicine; Visit Provider Internal Medicine
DX: E89.0 Postprocedural hypothyroidism (principal)
CPT/HCPCS: 36415; 84439; 84443; 84481

== ENCOUNTER → 2021-06-21 13:14 | Outpatient (CLI) | payer MEDICARE, OTHER, SELFPAY ==
--- NOTE | 2021-06-21 13:45 | MRI_ITS ---
STUDY: MRI BRAIN WITH AND WITHOUT CONTRAST REASON FOR EXAM: Female, 65 years old. DIZZINESS,TINNITUS-bilat TECHNIQUE: Standardized multiplanar fat and water weighted pulse sequences were obtained. IV 14 mL Dotarem was administered for the contrast portion of the examination. 6 Axial and sagittal T1 weighted images and axial T2, FLAIR, and diffusion-weighted images with ADC map of the entire brain are obtained. Smaller [id number] high-resolution fiesta images and axial T1 and coronal T2 images of the internal auditory canals are obtained. Following 14 mL of Dotarem intravenous contrast T1 weighted images of entire brain are obtained and axial and coronal small [id number] images of the internal auditory canals are obtained. COMPARISON: None. FINDINGS: There are scattered bilateral periventricular and subcortical white matter T2 bright foci without associated restricted diffusion most likely representing chronic small vessel ischemic changes in patient''s of this age. Ventricles and CSF spaces are symmetric and normal in size with no mass lesion and no midline shift or mass effect. Normal T2 flow void seen in the major intracranial vessels. There is normal midline anatomy. Cranial nerves in the cerebellar pontine angles and internal auditory canals are normal in appearance. There are no enhancing cranial nerves. Internal auditory canals are normal in appearance. The cochlea and semicircular canals are normal in appearance. Postcontrast enhanced images of the entire brain show normal vascular and meningeal enhancement. No disruption of the blood brain barrier. Soft tissues of the orbits are normal in appearance. Paranasal sinuses and mastoid air cells are without signal. Extracranial soft tissues of the face included in cffji-so-aswh are normal. MRI/Brain W/WO Contrast IMPRESSION: Nonspecific periventricular and subcortical white matter T2 and FLAIR bright foci, without restricted diffusion, most commonly represent chronic small vessel ischemic changes in this age distribution. Otherwise normal brain MRI. Cranial nerves of the cerebellar pontine angles and internal auditory canals are normal. Electronically Signed: Yan Alatorre DO at 23:20 EDT Tel , Service support ,
[2021-06-21 14:06] LABS: CREATININE FINGERSTICK 0.7 mg/dL (0.55-1.02); EGFR FINGERSTICK > 60.0000 mL/min (>60)
== END ==
PROVIDERS: PCP Internal Medicine; Referring Provider Otolaryngology; Visit Provider Otolaryngology
DX: H93.12 Tinnitus, left ear (principal)
CPT/HCPCS: 70553; A9575

== ENCOUNTER 2021-08-08 11:00 | Outpatient (RCR) | payer MEDICARE, OTHER, SELFPAY ==
--- NOTE | 2021-07-09 12:03 | HP.PTEVAL_ITS ---
Patient's Visit Information EMMY CRUZ is a 66 year old F referred to Physical Therapy by Dr. Lucila Menard MD with a diagnosis of Right Shoulder Pain. Date of Evaluation: 07/09/21 Physical Therapist: Adwoa Lin DPT - Visit Plan Frequency: 2x /Week Duration: 3 Weeks Plan: Focus on painfree ROM, scapular strength/stabilization and functional mobility- Ultrasound as needed - Subjective Patient reports that she fell 2 weeks ago in [place]- feels that she hyperextended her right shoulder- very painful- some improvement with ice/heat. Still has portions that catch and she has a hard time sleeping. Left hand dominate. Pain is located along the deltoid and radiates into the shoulder. Feels that she is lacking strength. Agg: positions that it catches Worst: 7- 8/10. The pain does stay for awhile. Best: 5/10 Eases: ice is better than heat, Tylenol and Ibuprofen. Describes the pain as sharp and shooting. Does not radiate to her fingers but does have pain up into the upper trap. No N/T in the fingers. Sleep: back and side sleeper- flips back and forth- hard to get comfortable and wakes her up. Does not wake her up- but she is waking up sooner. Normal day: 4-5 days exercise (bike, ellip or walk)-has been sitting more than she normally does- has slowed her down a little bit loosing her . No LOPEZ, blurred vision or dizziness. Went to [facility]- x-ray nothing broken- has not had an MRI. No injection in her shoulder. Goes to [place] Jul 20 for 2 weeks. PMHx/Meds: no change in meds- see scanned in chart. - Objective Posture: FH, RS- can correct but does not maintain. Gait: no deviation noted- good arm swing and trunk rotation. Palpation: tender upper trap and infraspinatus. ROM: AROM: Flexion: 130 degrees, Abd: 120 degrees, IR: equal to other side just slow, ER: 60 degrees PROM: WFL in all planes. Strength: Scap: fair minus, Shoulder neutral position: 4/5 throughout with discomfort, Elbow: 4- /5, Assistant Associate Professor: 35 lbs of force. Special Test: Neer: positive, Larkin: positive, Empty Can: positive, Belly lift off negative - Balance/Special Test Scores Quick DASH Score: 63.6350 - Goals Goal 1:: Patient will be I with HEP and progression Goal Time Frame: 4-6 Weeks Goal 2:: Patient will maintain proper posture t/o to demonstrate increased scap s/s. Goal Time Frame: 4-6 Weeks Goal 3:: Patient will demo full AROM without pain Goal Time Frame: 4-6 Weeks Goal 4:: Patient will report no pain with ADL's Goal Time Frame: 4-6 Weeks - Rehabilitation Potential Physical Therapy Diagnosis: Patient presents with hypomobility- she has decreased ROM, scapular strength/stabilization and muscular endurance leading to poor posture and increased pain with ADL's. Rehabilitation Potential: Fair - Anticipated Interventions Patient/Client Instruction: Educate patient on: Benefits of Fitness Program Therapeutic Exercise to Include: Strength training, Endurance training, Body mechanics, Postural training, Neuromotor development, Scapular Strength/Stabilization For the Purpose of:: To improve muscle performance and motor function TENS: Yes Ultrasound (thermal/non thermal): Yes Thank you for the opportunity to evaluate your patient. For Medicare and Medicare HMO plans, please review the plan of care and approve it. It will need to be FAXED BACK to us at [phone] for Medicare purposes. For Medicare only, by signing this I certify the plan of care. Please let me know if there are questions or concerns regarding this plan of care. Physician Signature: Date:
--- NOTE | 2021-08-08 11:27 | HP.PTDCSUM ---
It has been my pleasure to treat EMMY CRUZ referred by Dr. Lucila Menard MD, with the diagnosis of Right Shoulder Pain for a total of 7 visit(s). Discharge Date: Please see the following information for a summary of their discharge status. Subjective: Patient reports that she is a lot better. She is only a 1-2/10 at the worst. % Improvement: 80 Objective/Function: Posture: FH, RS- can correct but does not maintain. Gait: no deviation noted- good arm swing and trunk rotation. Palpation: tender upper trap and infraspinatus. ROM: AROM: WFL in all planes. Strength: Scap: fair plus, Shoulder neutral position: 4+/5, Elbow: 4+/5. Special Test: Neer: positive, Larkin: positive, Empty Can: positive, Belly lift off negative Goal 1:: Patient will be I with HEP and progression Goal Progress: Goal Met Goal 2:: Patient will maintain proper posture t/o to demonstrate increased scap s/s. Goal Progress: Goal Met Goal 3:: Patient will demo full AROM without pain Goal Progress: Goal Met Goal 4:: Patient will report no pain with ADL's Goal Progress: Goal Met Plan: Focus on pain free ROM, scapular strength/stabilization and functional mobility- Ultrasound as needed. 08/08/21: Discharge to home exercise program If there are questions or concerns regarding this patient's physical therapy, please feel free to call me at [phone]. Thank you for the referral of this patient. Sincerely, Adwoa Lin, DPT Balance/Gait/Functional tests - Balance/Special Test Scores Quick DASH Score: 25.0000
== END 2021-08-08 12:27 | disposition home or self-care (01) ==
LOC: PT 11:00
PROVIDERS: PCP Internal Medicine; Referring Provider Internal Medicine; Visit Provider Internal Medicine
DX: S46.911D Strain of unspecified muscle, fascia and tendon at shoulder and upper arm level, right arm, subsequent encounter (principal); X58.XXXD Exposure to other specified factors, subsequent encounter; M75.91 Shoulder lesion, unspecified, right shoulder
CPT/HCPCS: 97110; 97140; 97162; 97164

== ENCOUNTER → 2021-08-23 14:26 | Outpatient (CLI) | payer MEDICARE, OTHER, SELFPAY ==
[2021-08-23 15:43] LABS: Free T3 2.7 pg/mL (2.18-3.98); T4 Free Direct 1.33 ng/dL (0.76-1.46); Thyroid Stim Hormone (TSH) 1.07 uIU/mL (0.358-3.74)
== END ==
PROVIDERS: PCP Internal Medicine; Visit Provider Internal Medicine
DX: E03.9 Hypothyroidism, unspecified (principal)
CPT/HCPCS: 36415; 84439; 84443; 84481

== ENCOUNTER → 2021-09-10 13:53 | Outpatient (CLI) | payer MEDICARE, OTHER, SELFPAY | PROVIDERS: PCP Internal Medicine; Referring Provider Physician Assistant; Visit Provider Physician Assistant | DX: U07.1 COVID-19 (principal) | CPT/HCPCS: 87635; U0005; U0003 ==

== ENCOUNTER 2021-09-12 16:42 | Outpatient (CLI) | payer MEDICARE, OTHER, SELFPAY ==
[2021-09-12 17:09] VITALS: BP 141/88; PULSE 88; RESP 16; TEMP 36.8; O2SAT 100; BMI 25.7
[2021-09-12] MEDS: 0.9% Saline Lock 10 ML Syringe IV (17:13)
[2021-09-12 18:26] VITALS: BP 124/70; PULSE 74; RESP 16; TEMP 37; O2SAT 98
[2021-09-12 19:16] VITALS: BP 122/75; PULSE 73; RESP 16; TEMP 37.1; O2SAT 97
== END 2021-09-12 19:22 | disposition home or self-care (01) ==
LOC: MS3OUT 16:43 → MS3 16:44
PROVIDERS: PCP Internal Medicine; Referring Provider Nurse Practitioner Adult Health; Visit Provider Nurse Practitioner Adult Health
DX: Z23 Encounter for immunization (principal); U07.1 COVID-19
CPT/HCPCS: J7050; M0245; Q0245; A4216

== ENCOUNTER → 2022-02-08 | Outpatient (CLI) | payer MEDICARE, OTHER, SELFPAY ==
[2022-02-08 12:44] LABS: Cholesterol 229 mg/dL (200); High Density Lipoprotein 56 mg/dL; Thyroid Stim Hormone (TSH) 2.32 uIU/mL (0.358-3.74); Triglycerides 141 mg/dL; Very Low Density Lipoprotein 28 mg/dL (5-40)
== END | disposition home or self-care (01) ==
LOC: BIMLAB 08:32
PROVIDERS: PCP Internal Medicine; Referring Provider Internal Medicine; Visit Provider Internal Medicine
DX: E03.9 Hypothyroidism, unspecified (principal); E78.5 Hyperlipidemia, unspecified
CPT/HCPCS: 36415; 80061; 84443

== ENCOUNTER → 2022-02-18 | Outpatient (CLI) | payer MEDICARE, OTHER, SELFPAY ==
--- NOTE | 2022-02-18 14:10 | RAD_ITS ---
STUDY: X-RAY - PELVIS AND LEFT HIP REASON FOR EXAM: Female, 66 years old. left hip pain TECHNIQUE: 3 views of the pelvis and hip. COMPARISON: None. FINDINGS: There is a non-specific bowel gas pattern. Normal visualized soft tissue structures. Normal bilateral iliac wings, sacroiliac joints and visualized sacrum. Normal bilateral superior and inferior pubic rami. Normal pubic symphysis. Normal bilateral ischial tuberosities. Normal visualized femoral head. Normal acetabulum. Normal hip joint. RAD/HIP, UNI W/ Pelvis 2-3 Views IMPRESSION: Normal x-ray examination of the pelvis and hip. Electronically Signed: Jonathan Barth MD at 16:47 EDT ,
== END | disposition home or self-care (01) ==
LOC: MTRAD 14:01
PROVIDERS: PCP Internal Medicine; Referring Provider Internal Medicine; Visit Provider Internal Medicine
DX: M25.552 Pain in left hip (principal)
CPT/HCPCS: 73502

== ENCOUNTER → 2022-06-20 | Outpatient (CLI) | payer MEDICARE, OTHER, SELFPAY ==
--- NOTE | 2022-06-20 10:55 | RAD_ITS ---
STUDY: X-RAY - THORACIC SPINE REASON FOR EXAM: Female, 66 years old. Back pain, fall at home, compression fracture TECHNIQUE: 3 view(s) of the thoracic spine were obtained. COMPARISON: None. FINDINGS: Normal kyphosis of the thoracic spine. There is no substantial scoliosis. Normal thoracic vertebrae and endplates. Normal disc space heights. The soft tissue structures are unremarkable. RAD/Thoracic Spine 3 Views IMPRESSION: Normal x-ray examination of the thoracic spine. Electronically Signed: Roman Horner MD at 22:32 EDT ,
--- NOTE | 2022-06-20 10:55 | RAD_ITS ---
STUDY: X-RAY - LUMBAR SPINE REASON FOR EXAM: Female, 66 years old. Back pain, fall at home, compression fracture TECHNIQUE: AP and lateral view(s) of the lumbar spine were obtained. COMPARISON: None FINDINGS: Normal lumbar lordosis. There is mild levo scoliosis or splinting secondary to muscle spasm.. There is a normal alignment of the vertebrae. Normal vertebral bodies and endplates. Normal disc space heights. The soft tissue structures are unremarkable. RAD/Lumbar Spine 2 or 3 Views IMPRESSION: Mild levoscoliosis or splinting secondary to muscle spasm. Otherwise normal lumbar spine. Electronically Signed: Roman Horner MD at 22:32 EDT ,
== END | disposition home or self-care (01) ==
LOC: RAD 10:49
PROVIDERS: PCP Internal Medicine
DX: M54.9 Dorsalgia, unspecified (principal)
CPT/HCPCS: 72072; 72100

== ENCOUNTER → 2022-12-03 | Outpatient (CLI) | payer MEDICARE, OTHER, SELFPAY ==
[2022-12-03 16:52] LABS: Anion Gap 5 (5-15); BUN 18 mg/dL (7-18); BUN/Creat Ratio 25.9 RATIO (10-20); Calcium,Total 8.9 mg/dL (8.5-10.1); Chloride 105 mmol/L (98-107); EST Glomerular Filtration Rate 89 mL/min (>60); Est Glom Filt Rate - Afr Amer 108 mL/min (>60); Glucose 109 mg/dL (74-106); Potassium 3.6 mmol/L (3.5-5.1); Sodium Level 142 mmol/L (136-145)
== END | disposition home or self-care (01) ==
LOC: LAB 16:30
PROVIDERS: PCP Internal Medicine; Referring Provider Orthopaedic Surgery; Visit Provider Orthopaedic Surgery
DX: S52.592A Other fractures of lower end of left radius, initial encounter for closed fracture (principal); S92.354A Nondisplaced fracture of fifth metatarsal bone, right foot, initial encounter for closed fracture
CPT/HCPCS: 36415; 80048

== ENCOUNTER → 2022-12-16 | Outpatient (CLI) | payer MEDICARE, OTHER, SELFPAY ==
--- NOTE | 2022-12-16 13:53 | VDLE_ITS ---
Reason For Study: DVT RIGHT LEFT CFV is compressible, spontaneous, phasic, CFV is compressible, spontaneous, phasic, competent and demonstrates normal competent, and demonstrates normal augmentation. augmentation. Procedure FV is compressible, spontaneous, phasic, This is a venous duplex using B-mode, color competent and demonstrates normal flow and spectral Doppler. augmentation. Exam performed in department. POP V is compressible, spontaneous, phasic, A preliminary report was called and/or faxed competent and demonstrates normal to Dr. Menard. augmentation. T/P Trunk is compressible. PTV is compressible. LT PerV is compressible. Lt GSV not visualized s/p EVLA. VL/Venous Duplex US, Unilateral Interpretation Summary There is no evidence of left lower extremity deep vein thrombosis. History of E VLA treatment left great saphenous vein Normal flow patterns right common femoral vein Ordering Physician: Lucila Menard Referring Physician: Lucila Menard Performed By: Sadie Kessler, DULCE, RVT
== END | disposition home or self-care (01) ==
LOC: CVS 13:52
PROVIDERS: PCP Internal Medicine; Visit Provider Internal Medicine
DX: Z86.718 Personal history of other venous thrombosis and embolism (principal); I82.402 Acute embolism and thrombosis of unspecified deep veins of left lower extremity
CPT/HCPCS: 93971

== ENCOUNTER → 2023-01-20 | Outpatient (CLI) | payer MEDICARE, OTHER, SELFPAY ==
[2023-01-20 13:16] LABS: Bacteria 0 SEEN /hpf (None Seen); Mucous, Urine 0 SEEN /hpf (<or=2+); Red Blood Cells-Urine 0 SEEN /hpf (0-5); Squamous Epithelial Cells - UA 0 SEEN /hpf (5-10)
[2023-01-20 13:30] LABS: Color, Urine Yellow (Yellow); Glucose, Dipstick Normal (Normal); Ketone-Dipstick Negative (Negative); Leukocyte Esterase-Dipstick 25 /ul (Negative); Nitrite-Dipstick Negative (Negative); Occult Blood-Urine Negative /ul (Negative); Protein-Dipstick Negative (Negative); Specific Gravity, Urine 1.005 (1.002-1.030); Urine Bilirubin Dipstick Negative (Negative); Urine Clarity Sl. Cloudy (Clear); Urine Urobilinogen Normal (Normal)
[2023-01-20 13:53] LABS: White Blood Cells 0-5 SEEN /hpf (0-5)
== END | disposition home or self-care (01) ==
LOC: LABSPEC 13:02
PROVIDERS: PCP Internal Medicine; Referring Provider Nurse Practitioner Family; Visit Provider Nurse Practitioner Family
DX: N39.0 Urinary tract infection, site not specified (principal); R35.0 Frequency of micturition
CPT/HCPCS: 81001; 87077; 87086; 87088; 87186

== ENCOUNTER 2023-02-12 13:30 | Outpatient (RCR) | payer MEDICARE, OTHER, SELFPAY ==
--- NOTE | 2023-01-22 16:11 | HP.OTEVAL_ITS ---
Patient's Visit Information EMMY CRUZ is a 67 year old F, referred to Occupational Therapy by Dr. Marcos Infante MD, with a diagnosis of Left distal radius fx. Date of Evaluation: 01/22/23 Occupational Therapist: Humera Gomez, OTR/L, CHT - Subjective This 67 year old female was seen for OT eval with dx of left distal radius fx. pt states while out of town. pt states she went ER to have wrist set ( in [place]). pt states returned early and went to see Dr. Infante. pt underwent ORIF on 12/05/22.pt states pain at times. soreness but limited use with ADLs. pt states she is left handed and due to limitations she is not IND with any of her ADLs and IADls. pt would like to return to her PLOF. - ADLs Comments: pt left handed and due to injury pt takes longer to complete daily cleaning/ meal prep and ADL tasks. - Pain left wrist 3 Pain Intensity Range: 1, 4 - ROM Forearm: right/ left WNL Wrist: right 70/75 left 45/25 Opposition: Kapandji opposition scale right/left 10 ( distal Palmar Crease) ROM Comments: right RD [address] 10 UD 15 - Strength Head Loader: right 26# left 15# Lateral Pinch: right 6# left 4# Tripod Pinch: right 4# left 43 Strength Comments: pt demo decrease in left director of promotions strength - Sensation Sensation Comments: denies - Quick DASH-Disab of Arm,Shoulder& Hand Quick DASH Score: 47.7250 - Goals Goal:Daily scar massage when approriate: Yes Goal:ROM equal to unaffected hand: Yes Goal:Head Loader/Pinch strength at least 75% of unaffected hand: Yes Goal:No pain with affected hand use: Yes Goal:Full use of affected hand in daily activities including: Yes - Rehabilitation General Assessment: pt arrives 6 weeks and 6 days s/p form left ORIF. pt is left handed and demo a decrease in left wrist ROM and weakness limiting pt use of left hand for ADLs and IADLs. pt would benefit from skilled OTR/L,CHT services 1-2x week for 2-3 weeks to assist pt in returning to her PLOF. Today therapist ed. pt on AROM, PROM and scar mtg. pt was given scar gel to wear at night to decrease keloid scar. pt demo understanding and agree to POC. Rehabilitation Potential: Good - Anticipated Interventions A/AAROM/PROM, Strengthening, Triggerpoint Release, Modalities, Orthoses, Joint Protection/Energy Conservation, Ergonomic Education, Education re assistive Equipment, Education re Diagnosis, Home Program - Visit Plan Frequency: 1-2x /Week Duration: 3 Weeks General Plan: increase pts ROM. initiate PRE TEXT: Thank you for the opportunity to evaluate your patient. For Medicare and Medicare HMO plans, please review the plan of care and approve it. It will need to be FAXED BACK to us at [phone] for Medicare purposes. Please let me know if there are questions or concerns regarding this plan of care. Physician Signature: Date:
--- NOTE | 2023-02-12 13:48 | HP.OTDCSUM ---
It has been my pleasure to treat EMMY CRUZ under orders from Dr. Marcos Infante MD, for the diagnosis of Left distal radius fx for a total of 4 visit(s). Please see the following information for a summary of their discharge status. % Improvement: 90 Objective/Function: left 65/50 increase from 45/25. left forearm WNL. left phlebotomy coordinator strength 25# right is 30#. left lateral pinch 8#. left tripod pinch 8#. pt denies tingling. pt reports she has returned to IND. level with ADLs and IADLs. pt increasing use of left hand as tolerated. Pt also will cont. with her HEP with PRE of UB, phlebotomy coordinator and pinch strength. pt agrees to D/C. Patient Goals: Regain Mobility, Decrease Pain, Use Hand/Wrist/Arm Normally Again, Be More Independent in ADLS Goal:Daily scar massage when approriate: Yes Goal:ROM equal to unaffected hand: Yes Goal:Class B Truck Driver/Pinch strength at least 75% of unaffected hand: Yes Goal:No pain with affected hand use: Yes Goal:Full use of affected hand in daily activities including: Yes Plan: pt d/c. Discharge Comments: pt arrived to 4 OT sessions and demo return of her PLOF. Pt to cont with HEP and increase wt. as verona. and return to normal use of left UE. pt has met OT goals and is d.c at this time. If there are questions or concerns regarding this patient's occupational therapy, please fell free to call me at [phone]. Thank you for the referral of this patient. Sincerely, Humera Gomez, OTR/L, CHT
== END 2023-02-12 19:00 | disposition home or self-care (01) ==
LOC: OT 13:30
PROVIDERS: PCP Internal Medicine; Referring Provider Orthopaedic Surgery; Visit Provider Orthopaedic Surgery
DX: S92.354D Nondisplaced fracture of fifth metatarsal bone, right foot, subsequent encounter for fracture with routine healing (principal); S52.572D Other intraarticular fracture of lower end of left radius, subsequent encounter for closed fracture with routine healing
CPT/HCPCS: 97110; 97140; 97166; 97530

== ENCOUNTER 2023-03-10 10:12 | Day surgery (SDC) | payer MEDICARE, OTHER, SELFPAY ==
[2023-03-05 10:49] LABS: Hematocrit 47.9 % (37-47); Hemoglobin 15.3 g/dL (12.0-15.0); Mean Corp Hgb Conc 31.9 g/dL (32-36); Mean Corpuscular Hgb 30.9 pg (27.0-32.0); Mean Corpuscular Volume 96.8 fL (81-99); Mean Platelet Vol. 11.4 fl (6.2-12.0); Platelet Count 243 K/mm3 (150-450); RBC Distribution Width CV 13.1 % (11.6-14.6); RBC Distribution Width SD 46.8 fl (35.1-43.9); Red Blood Count 4.95 M/mm3 (4.2-5.4); White Blood Count 6.2 K/mm3 (4.4-11.0)
[2023-03-05 11:08] LABS: Anion Gap 3 (5-15); BUN 16 mg/dL (7-18); BUN/Creat Ratio 23.6 RATIO (10-20); Calcium,Total 9.3 mg/dL (8.5-10.1); Chloride 104 mmol/L (98-107); Creatinine, Serum 0.68 mg/dL (0.55-1.02); EST Glomerular Filtration Rate 92 mL/min (>60); Est Glom Filt Rate - Afr Amer 111 mL/min (>60); Glucose 90 mg/dL (74-106); Potassium 3.8 mmol/L (3.5-5.1); Sodium Level 139 mmol/L (136-145)
[2023-03-10] VITALS (8 sets, daily range): BP systolic 128–161; BP diastolic 70–99; PULSE 91–103; RESP 16; TEMP 36.8–37; O2SAT 90–98; BMI 25.2
--- NOTE | 2023-03-10 10:22 | PCM.HP.BLA ---
History and Physical Date of Admission: 03/10/23 Allergies nitrofurantoin [From Macrobid] Allergy (Verified 02/24/23 09:07) Othernitrofurantoin macrocrystalline [From Macrodantin] Allergy (Verified 02/24/23 09:07) Hives PFSH Medical History? Chronic UTI Closed left ankle fracture COVID-19 History of basal cell carcinoma History of blood clots History of cyst of breast Hot flashes Hyperlipemia Hyperlipidemia Hypertension Osteopenia Right shoulder strain Surgical History? History of tonsillectomy and adenoidectomy Internal hemorrhoid left ankle fracture S/P thyroidectomy S/P vaginal hysterectomy Family History? Mother Heart diseaseFather Heart disease Myocardial infarctionBrother Prostate cancer CancerOther Depression Hyperlipemia Hypertension Social History? Smoking Status:? Never smoker alcohol intake:? never substance use type:? does not use caffeine:? Yes what type of physical activity do you participate in:? walking and weight training frequency:? 3-4 times per week seatbelt use:? always do you feel safe at home:? Yes additional social history:? Patient is retired HPI HPI Surgical H&P: Yes HPI: Patient is a 67 y/o who presents for an update history and physical for an elective colonoscopy and surgical hemorrhoidectomy. Patient was scheduled in December of this year for this procedure and had an accident in [place] requiring left wrist surgery and a right lower extremity walking boot. Patient has since recovered from both injuries. She is prepared to proceed with the proposed procedure. Patient denies any cardiac or pulmonary history. Patient notes a previous history of blood clots in 2007 and 2009. She was on blood thinners for a short time period for each episode. Patient is no longer on any blood thinners. Patient denies any history of sleep apnea. Patient denies any previous complications with anesthesia. Patient's previous history per Dr. Urias: ?67-year-old female is presenting to discuss her concerns regarding hemorrhoids.? She has had previous bouts of diverticulitis.? Is complaining of protruding hemorrhoids and bleeding.? She is having trouble with hygiene. She has seen Dr. Alvarado colorectal surgery in the past for what sounds like what was suspected to be colon mass but ended up being severe diverticulitis.? She states she has seen him at least on 4 occasions.? She cannot recall when she might of had her most recent colonoscopy.? She states that each colonoscopy has been fine. She states that I assisted her many years ago treating internal hemorrhoids.? She is not clear as to the type of surgical procedure and we do not have any records that we can find here locally. She has had a history of a DVT after a vein stripping procedure and she has had a history of a DVT associated with an ankle fracture.? She is not on any long-term anticoagulant. She states in the particular that on the right side she feels some external tissue and thinks that is where some of the internal tissue was prolapsing as well. I now have records available from my procedure dated November 15, 2014 where I did a PPH stapled hemorrhoidopexy as an outpatient through the [facility].? That appeared to proceed without complication. It appears that the patient's previous colonoscopy was November 15, 2014 same date.? Diverticulosis and hemorrhoids identified.? Follow-up examination 10 years recommended at that time. Exam Const General: cooperative, healthy appearing, comfortable and no acute distress [facility] Head: normal to inspection Eyes General: appearance normal, both eyes and all related structures Neck Neck: normal visual inspection Neck mass: No Chest Chest palpation & inspection: normal inspection of the chest Resp Effort & Inspection: normal respiratory effort Auscultation: clear to auscultation bilaterally Cardio Rate: regular rate Rhythm: regular rhythm GI Inspection: normal to inspection Palpation: soft Auscultation: normal bowel sounds Rectal Exam: hemorrhoids (protruding internal hemorrhoid on the right, no external tags) Musc Cervical Spine: normal cervical lordosis Skin General: no rashes or lesions noted Neuro General: no focal motor deficits and CN's II-XI intact bilaterally Extrem General: normal to inspection Psych Appearance: grossly normal Affect: normal affect Assessment and Plan Assessment and Plan (1) Internal hemorrhoid: ?Status:?Acute ?Plan: Dr. Urias will plan to perform a colonoscopy with possible biopsies and surgical hemorrhoidectomy at the same setting. Procedures details, risks and benefits have been explained. Patient has had the opportunity to ask and have questions answered. Patient verbally understands and agrees with the proposed procedure. Patient has the provided 2 day Miralax bowel prep instructions. I have examined the patient and the H&P has been reviewed. There are no clinical changes since date of exam. Alex Urias M.D., F.A.C.S.
--- NOTE | 2023-03-10 10:29 | DCINST_ITS ---
Discharge Instructions Diet Discharge Diet: Light diet - advance as tolerated Activity Discharge Activity: May Not Drive (May not drive until you are off of narcotics and comfortable enough to do so), May Shower and May Take a Tub Bath Additional Activity Instructions:: Sitz bathe in warm soapy water as needed for hygiene and comfort. You may use a absorptive hygiene bed for any drainage. Dressing / Incision Call your doctor if you observe: Fever of 101 or Higher Cleanse incision/area with: Soap & Water Additional Dressing/Incision Instructions:: Mineral oil 1 ounce in food or juice daily for least 1 week Daily fiber supplement Metamucil or Citrucel or FiberCon or Benefiber and water or juice daily Apply topical thick numbing ointment Dibucaine every 4 hours as needed for comfort You may remove the Vaseline gauze tomorrow or sooner if you have a bowel movement. Use showers or tub base to help with cleansing and hygiene particularly after bowel movements No heavy lifting or straining more than 10 pounds Antibiotics as prescribed for 5 days please Follow Up Care Please Follow Up With: Alex Urias MD When: Please call [phone] for office follow-up in 3 weeks Test Results: Test results from this visit will be discussed in further detail at your follow- up appointment, if applicable. Discharge Plan Admission Attending Provider: Alex Urias Primary Care Provider: Lucila Menard Discharge Orders/Prescriptions Prescriptions: No Action ascorbic acid (vitamin C) 1,000 mg tablet 1 g PO DAILY calcium carbonate [Calcium 600] 600 mg calcium (1,500 mg) tablet 600 mg PO BID cholecalciferol (vitamin D3) 100 mcg (4,000 unit) capsule 100 mcg (4,000 unit) capsule 100 mcg PO DAILY caranberry pills 100 mg PO PRN PRN (Reason: Bladder Spasms) venlafaxine 75 mg capsule,extended release 24hr 75 mg PO DAILY Qty: 90 4RF Multivitamin 2 tab.chew PO DAILY Label Comments: SUPPLEMENT Probiotic 3 billion cell Capsule 3,000 mmu cells PO DAILY Rx Instructions: administer with a meal lovastatin 20 mg tablet 20 mg PO QHS levothyroxine 112 mcg tablet 112 mcg PO DAILY Qty: 90 3RF amlodipine 10 mg tablet 10 mg PO DAILY Qty: 90 3RF Other Ambulatory Orders: 12 Lead EKG (Routine) Timeframe: [id number] Location: None Selected Ordered By: Dr. Alex Urias Referrals / Follow Up: Lucila Menard MD [Primary Care Provider] - Disposition Disposition (needs filled in before D/C Order can be placed): Home, Self Care
[2023-03-10] MEDS: Lactated Ringers 1,000 ML 15 ML IV (11:01)
--- NOTE | 2023-03-10 12:00 | COLBX_PTH ---
PATIENT: EMMY CRUZ LOC: EN U#:[id number] AGE/SX: 67/F ROOM: RE03/10/[address]: Dr. Alex Urias MD : 1955 BED: DIS: 03/10/2023 SPEC #: [id number] RECD: 03/10/23 13:10 STATUS: MARIANELA REHilary #: [id number] COLLEEN: 03/10/23 12:[address]: Alex Urias DEPT: SURGICAL PATHOLOGY RECD BY: Anahi Godinez ENTERED: 03/10/23 13:37 SP TYPE: COLON BX OTHR DR: Dr. Lucila Menard MD Tissues: A - Cecum, NOS B - Transverse colon Procedures: Surgery Specimen Level IV HEADER OPERATION: Surgical hemorrhoidectomy with colonoscopy PRE-OP DIAGNOSIS: Internal hemorrhoid TISSUE SUBMITTED: A - Cecum polyp biopsy, B - Mid transverse polyp biopsy MICROSCOPIC DIAGNOSIS A. Cecal polyp, biopsy: Tubular adenoma. B. Mid transverse colon polyp, biopsy: Fragments of benign colonic mucosa. See comment. AM:skyler 03/11/2023 COMMENT B. Neither hyperplastic nor adenomatous change is identified. Clinical correlation is suggested. MICROSCOPIC DESCRIPTION Slides are reviewed. GROSS DESCRIPTION A - Received in fixative is one container labeled with the patient's name and designated cecum polyp biopsy. The specimen consists of one irregular fragment of light rico soft tissue that measures 0.3 x 0.2 x 0.1 cm. The specimen is totally submitted in one cassette. B - Received in fixative is one container labeled with the patient's name and designated mid transverse polyp biopsy. The specimen consists of multiple fragments predominantly consisting of fecal material measuring in aggregate 0.2 x 0.1 x 0.1 cm. The specimen is totally submitted in one cassette. / SJ:skyler 03/10/2023 TC:5 CPT: 45793 x2
--- NOTE | 2023-03-10 12:00 | HEM_PTH ---
PATIENT: EMMY CRUZ LOC: EN U#:[id number] AGE/SX: 67/F ROOM: RE03/10/[address]: Dr. Alex Urias MD : 1955 BED: DIS: 03/10/2023 SPEC #: [id number] RECD: 03/10/23 13:51 STATUS: MARIANELA FRANK #: [id number] COLLEEN: 03/10/23 12:[address]: Alex Urias DEPT: SURGICAL PATHOLOGY RECD BY: Anahi Godinez ENTERED: 03/11/23 10:06 SP TYPE: HEMORRHOID OTHR DR: Dr. Lucila Menard MD Tissues: HEMORRHOIDS Procedures: Surgery Specimen Level III HEADER OPERATION: Surgical hemorrhoidectomy and colonoscopy with polypectomy PRE-OP DIAGNOSIS: Internal hemorrhoid, colon cancer screening TISSUE SUBMITTED: Hemorrhoids MICROSCOPIC DIAGNOSIS Hemorrhoids, hemorrhoidectomy: Submucosal vascular ectasia and thrombosis consistent with hemorrhoids. AM:skyler 03/12/2023 MICROSCOPIC DESCRIPTION Slides are reviewed. GROSS DESCRIPTION Received in fixative is one container labeled with the patient's name and designated hemorrhoid. The specimen consists of a piece of rico, congested mucosal tissue measuring 2.5 x 1.5 x 1.5 cm. Multiple smaller fragments of pink, congested soft tissue are also noted measuring in aggregate 2.0 x 2.0 x 0.5 cm. Sections of the largest piece reveal congested and hemorrhagic cut surfaces. Tower Supervisor sections are submitted in one cassette including largest piece and smaller pieces. / VIRY:skyler 03/11/2023 TC:5 CPT: 45008
[2023-03-10] MEDS: Cefotetan 2 GM in 0.9% NS 100 ML IV (12:36)
[2023-03-10] MEDS: Lubricating Jelly 60 GM Tube 30 GM (12:45)
[2023-03-10] MEDS: Dibucaine 30 GM Tube 1 APPLIC (12:58)
[2023-03-10] MEDS: Bupivacaine 0.25% 30 ML Vial (13:21)
[2023-03-10] MEDS: BUPIVACAINE LIPOSOME/PF 20 ML VIAL OPERA.SITE (13:21)
--- NOTE | 2023-03-10 13:25 | OP.PCM_ITS ---
Report of Operation Date of Procedure: 03/10/23 Pre-Operative Diagnosis: Prolapsing bleeding internal and external hemorrhoids. Screening for intestinal cancer Post-Operative Diagnosis: Colon polyps x2. Prolapsing bleeding internal and external hemorrhoids Surgery/Procedure Performed:: Colonoscopy with cold forcep polypectomy x2, 4 column surgical hemorrhoidectomy internal and external Description of Surgical Findings:: Colonoscopy is dictated in probation. Polyp was identified in the transverse colon and at the cecum both removed with cold forceps. From the left lateral decubitus position she was then placed prone jackknife. Tape was used to help expose the perianal area. It was clipper and then Betadine prepped. Inspection revealed prolapsing internal irritated hemorrhoidal tissue anteriorly with bulky disease posteriorly and left laterally and small amount of disease right laterally. Speculum was inserted. The anterior tissue was removed first. An apical suture of 0 Vicryl placed. Then an apical suture of 2-0 chromic placed. Harmonic Scalpel was used to excise the external tissue and internal hemorrhoidal prolapsing tissue with care taken to preserve the sphincter. The mucosa was approximate the running locking 2-0 chromic. Similar procedure was performed posteriorly. Left laterally that tissue was secured with harmonic scalpel and the mucosa proximal to the running 2-0 chromic. Right laterally and apical suture of 2-0 chromic placed and then excess prolapsing internal hemorrhoid tissue was excised with the harmonic and then the mucosa approximated with running 2-0 chromic. Inspection revealed that the vast bulk of both internal and external hemorrhoidal disease had been removed. Hemostasis had been obtained throughout using a [place] scalpel and electrocautery and sutures were indicated. Surgifoam wrapped with Vaseline treated with Dibucaine ointment was inserted to assist with hemostasis. The perianal perirectal tissue anesthetized with 20 cc of Exparel diluted with 25 cc of 0.25% Marcaine. Gauze pad was applied. Sponge and instrument and needle counts were reported to the surgeon to be correct. Blood loss was minimal. She appeared to tolerate the procedure well without apparent complication. She was taken to the recovery room in satisfactory addition. Specimen hemorrhoidal tissue. Drains none. Blood loss minimal. Alex Urias M.D., F.A.C.S. Surgeon: Alex Urias Type of Anesthesia: General
--- NOTE | 2023-03-10 13:35 | OP.COLON_ITS ---
Patient Name: Bren Michael Procedure Date: 03/10/2023 11:30 AM Date of : 1955 Age: 67 Procedure: Colonoscopy Indications: Screening for colorectal malignant neoplasm Providers: Alex Urias MD Referring MD: Alex Urias MD Medicines: General Anesthesia Patient Profile: Last Colonoscopy: date unknown. Complications: No immediate complications. Procedure: Pre-Anesthesia Assessment: - Prior to the procedure, a History and Physical was performed, and patient medications and allergies were reviewed. The patient's tolerance of previous anesthesia was also reviewed. The risks and benefits of the procedure and the sedation options and risks were discussed with the patient. All questions were answered, and informed consent was obtained. Prior Anticoagulants: The patient has taken no previous anticoagulant or antiplatelet agents. ASA Grade Assessment: II - A patient with mild systemic disease. After reviewing the risks and benefits, the patient was deemed in satisfactory condition to undergo the procedure. After I obtained informed consent, the scope was passed under direct vision. Throughout the procedure, the patient's blood pressure, pulse, and oxygen saturations were monitored continuously. The was introduced through the anus and advanced to the cecum, identified by appendiceal orifice and ileocecal valve. The colonoscopy was performed without difficulty. The patient tolerated the procedure well. The quality of the bowel preparation was good. The ileocecal valve was photographed. Scope In: 12:12:02 PM Scope Withdrawal Time 0 hours 11 minutes 18 seconds Scope Out: 12:30:16 PM Total Procedure Duration Time 0 hours 18 minutes 14 seconds Findings: The digital rectal exam findings include non-thrombosed external hemorrhoids, non-thrombosed internal hemorrhoids and internal hemorrhoids that prolapse with straining, but spontaneously regress to the resting position (Grade II). A 4 mm polyp was found in the cecum. The polyp was sessile. The polyp was removed with a cold biopsy forceps. Resection and retrieval were complete. A 4 mm polyp was found in the mid transverse colon. The polyp was sessile. The polyp was removed with a cold biopsy forceps. Resection and retrieval were complete. Scattered diverticula were found in the sigmoid colon. Impression: - Non-thrombosed external hemorrhoids, non-thrombosed internal hemorrhoids and internal hemorrhoids that prolapse with straining, but spontaneously regress to the resting position (Grade II) found on digital rectal exam. - One 4 mm polyp in the cecum, removed with a cold biopsy forceps. Resected and retrieved. - One 4 mm polyp in the mid transverse colon, removed with a cold biopsy forceps. Resected and retrieved. - Diverticulosis in the sigmoid colon. Recommendation: - Discharge patient to home. - Resume previous diet. - Continue present medications. - Repeat colonoscopy in 5 years for surveillance based on pathology results. - Return to my office in 3 weeks. Procedure Code(s): --- Professional --- 88488, Colonoscopy, flexible; with biopsy, single or multiple Diagnosis Code(s): --- Professional --- Z12.11, Encounter for screening for malignant neoplasm of colon K64.1, Second degree hemorrhoids K64.4, Residual hemorrhoidal skin tags D12.0, Benign neoplasm of cecum D12.3, Benign neoplasm of transverse colon (hepatic flexure or splenic flexure) K57.30, Diverticulosis of large intestine without perforation or abscess without bleeding CPT copyright 2017 [employer]. All rights reserved. The codes documented in this report are preliminary and upon title examiner review may be revised to meet current compliance requirements. Alex Urias MD 03/10/2023 1:34:44 PM This report has been signed electronically. Number of Addenda: 0 Note Initiated On: 03/10/2023 11:30 AM
--- NOTE | 2023-03-10 13:36 | OP.CCLET_ITS ---
03/10/2023 Lucila Menard [facility] [address] [place] [address] Re : Colonoscopy procedure for Bren Michael Dear Dr. Menard This procedure was performed on Friday, March 10, 2023. My impressions and recommendations are as follows: Impressions : - Non-thrombosed external hemorrhoids, non-thrombosed internal hemorrhoids and internal hemorrhoids that prolapse with straining, but spontaneously regress to the resting position (Grade II) found on digital rectal exam. - One 4 mm polyp in the cecum, removed with a cold biopsy forceps. Resected and retrieved. - One 4 mm polyp in the mid transverse colon, removed with a cold biopsy forceps. Resected and retrieved. - Diverticulosis in the sigmoid colon. Recommendations : - Discharge patient to home. - Resume previous diet. - Continue present medications. - Repeat colonoscopy in 5 years for surveillance based on pathology results. - Return to my office in 3 weeks. My findings are described in the full procedure note, which is enclosed. If I can be of further assistance, please feel free to contact me at Doctor phone number(s): Work: . Sincerely, Alex Urias MD 03/10/2023 1:34:44 PM This report has been signed electronically.
== END 2023-03-10 15:35 | disposition home or self-care (01) ==
LOC: EN 10:13 → AC 10:13
PROVIDERS: PCP Internal Medicine; Referring Provider Surgery; Visit Provider Surgery
PROC: (CPT 45380; principal; 2023-03-10 11:45)
PROC: 0DJD8ZZ Inspection of Lower Intestinal Tract, Via Natural or Artificial Opening Endoscopic (ICD-10-PCS; CPT 45378; principal; 2023-03-10 11:55)
DX: D12.0 Benign neoplasm of cecum (principal); K57.30 Diverticulosis of large intestine without perforation or abscess without bleeding; K64.1 Second degree hemorrhoids; K64.4 Residual hemorrhoidal skin tags; I10 Essential (primary) hypertension; E78.5 Hyperlipidemia, unspecified; E07.9 Disorder of thyroid, unspecified; Z79.899 Other long term (current) drug therapy; Z86.16 Personal history of COVID-19; Z86.718 Personal history of other venous thrombosis and embolism
CPT/HCPCS: 45380; 36415; 80048; 85027; 88304; 88305; 93005; J7120; J2405

== ENCOUNTER → 2023-03-27 | Outpatient (CLI) | payer MEDICARE, OTHER, SELFPAY ==
[2023-03-27 10:03] LABS: Cholesterol 215 mg/dL (200); Free T3 2.7 pg/mL (2.18-3.98); High Density Lipoprotein 54 mg/dL; T4 Free Direct 1.32 ng/dL (0.76-1.46); Thyroid Stim Hormone (TSH) 0.15 uIU/mL (0.358-3.74); Triglycerides 218 mg/dL; Very Low Density Lipoprotein 44 mg/dL (5-40)
[2023-03-27 10:11] LABS: Vitamin D,25 Hydroxy 47.7 ng/mL
== END | disposition home or self-care (01) ==
LOC: LAB 08:19
PROVIDERS: PCP Internal Medicine; Referring Provider Internal Medicine; Visit Provider Internal Medicine
DX: E03.9 Hypothyroidism, unspecified (principal); E89.0 Postprocedural hypothyroidism; I10 Essential (primary) hypertension; E78.5 Hyperlipidemia, unspecified; E55.9 Vitamin D deficiency, unspecified; Z13.220 Encounter for screening for lipoid disorders
CPT/HCPCS: 36415; 80061; 82306; 84439; 84443; 84481

== ENCOUNTER → 2023-07-01 | Outpatient (CLI) | payer MEDICARE, OTHER, SELFPAY ==
[2023-07-01 15:34] LABS: Free T3 2.3 pg/mL (2.18-3.98); T4 Free Direct 1.12 ng/dL (0.76-1.46); Thyroid Stim Hormone (TSH) 1.62 uIU/mL (0.358-3.74)
== END | disposition home or self-care (01) ==
LOC: LAB 14:12
PROVIDERS: PCP Internal Medicine; Visit Provider Internal Medicine
DX: E89.0 Postprocedural hypothyroidism (principal)
CPT/HCPCS: 36415; 84439; 84443; 84481

== ENCOUNTER → 2023-09-09 | Outpatient (CLI) | payer MEDICARE, OTHER, SELFPAY ==
[2023-09-09 12:45] LABS: Bacteria 0 SEEN /hpf (None Seen); Mucous, Urine 0 SEEN /hpf (<or=2+); Red Blood Cells-Urine 0 SEEN /hpf (0-5); Squamous Epithelial Cells - UA 0 SEEN /hpf (5-10); White Blood Cells 0 SEEN /hpf (0-5)
[2023-09-09 12:50] LABS: Color, Urine Yellow (Yellow); Glucose, Dipstick Normal (Normal); Ketone-Dipstick Negative (Negative); Leukocyte Esterase-Dipstick Negative /ul (Negative); Nitrite-Dipstick Negative (Negative); Occult Blood-Urine Negative /ul (Negative); Protein-Dipstick Negative (Negative); Urine Bilirubin Dipstick Negative (Negative); Urine Clarity Clear (Clear); Urine Urobilinogen Normal (Normal)
== END | disposition home or self-care (01) ==
LOC: LABSPEC 12:34
PROVIDERS: PCP Internal Medicine; Referring Provider Nurse Practitioner Family; Visit Provider Nurse Practitioner Family
DX: R30.0 Dysuria (principal)
CPT/HCPCS: 81001; 87077; 87086; 87088; 87186

== ENCOUNTER → 2023-12-23 | Outpatient (CLI) | payer MEDICARE, OTHER, SELFPAY ==
--- NOTE | 2023-12-23 07:24 | MRI_ITS ---
STUDY: MRI LEFT HIP REASON FOR EXAM: Female, 68 years old. pain left hip, nki TECHNIQUE: Standardized fat and water weighted pulse sequences were obtained in all 3 orthogonal planes. The right hip is included in the [id number] on multiple sequences. COMPARISON: None. FINDINGS: No marrow edema or fracture or loose body is seen. There is no evidence of avascular necrosis of the hips. No stress edema or fractures are seen in the sacrum. No hip joint effusions are present. Mild trochanteric bursal edema and insertional intramuscular edema of the anterior aspect of the left gluteus marce muscle is present and best seen on the coronal sequence image 15/12 series 5. Mild insertional gluteal tendinosis is also present at the greater trochanter on the left with a small partial tear of the gluteus medias tendon as seen on image 17/28 series 5 and 24/36 series 2. No trochanteric bursal fluid is present. There is mild articular narrowing of the hip joint, with less than 50% loss of the hyaline cartilage. Normal acetabulum. Normal labrum. Normal femoral head. Normal femoral neck and intratrochanteric region. Normal right gluteus minimus, medius and iliopsoas tendons and distal insertions. There is no trochanteric, iliopsoas or iliopectineal bursitis. Normal superior and inferior pubic rami. Normal pubic symphysis. Normal ischial tuberosity. Normal origin of the hamstring tendons. Normal visualized iliac wing, sacroiliac joint, and sacral ala. Significant rectosigmoid diverticulosis is present. The remaining visualized intrapelvic structures are grossly unremarkable. The right hip joint is within normal limits. MRI/Lower Ext Joint Only (Routine) IMPRESSION: 1. Small partial tears of the left gluteus medius medius and marce tendons at the trochanteric insertion site with overlying trochanteric bursal edema without fluid distention. Mild intramuscular edema at the musculotendinous junction of the left gluteus marce is also present. Electronically Signed: Seymour Garcia MD at 12:59 EDT ,
== END | disposition home or self-care (01) ==
LOC: MRI 07:18
PROVIDERS: PCP Internal Medicine; Referring Provider Orthopaedic Surgery Sports Medicine; Visit Provider Orthopaedic Surgery Sports Medicine
DX: M70.62 Trochanteric bursitis, left hip (principal)
CPT/HCPCS: 73721

== ENCOUNTER → 2023-12-26 | Outpatient (CLI) | payer MEDICARE, OTHER, SELFPAY ==
--- NOTE | 2023-12-26 09:34 | BD_ITS ---
STUDY: DUAL ENERGY X-RAY ABSORPTIOMETRY / DXA REASON FOR EXAM: Female, 68 years old. Screening for osteoporosis TECHNIQUE: Bone Mineral Density (BMD) measurements of lumbar spine and bilateral hips were obtained. COMPARISON: None. FINDINGS: Lumbar Spine (L1-L4): g/cm2 (0.696) / T-score (-3.2) / Z-score (-1.2) Findings are suggestive of osteoporosis with a high fracture risk. Left Femur Total: g/cm2 (0.648) / T-score (-2.4) / Z-score (-1.0) Left Femoral Neck: g/cm2 (0.593) / T-score (-2.3) / Z-score (-0.6) Right Femur Total: g/cm2 (0.694) / T-score (-2.0) / Z-score (-0.6) Right Femoral Neck: g/cm2 (0.572) / T-score (-2.5) / Z-score (-0.8) BD/Dexa Bone Density Study IMPRESSION: The patient is considered osteoporotic as outlined below according to World Pablo Organization (WHO) criteria with a high fracture risk. Reference Information: The T-score is the number of standard deviations above or below the standard which is normal for young adults at their peak bone mineral density. The World Health Organization (WHO) interprets the T-scores as follows: Above -1 Normal bone density Between -1 and -2.5 Osteopenia Equal to / or below -2.5 Osteoporosis As a practical clinical guideline, osteopenia may be graded as follows: Mild -1 through -1.5 Moderate -1.6 through -2.0 Severe -2.1 through -2.4 The Z-score is the number of standard deviations above or below age-matched controls. A Z-score of less than -1.5 would be considered abnormal. References: 1. NIH Osteoporosis and Related Bone Diseases www osteo.org 2. International Society for Clinical Densitometry www iscd.org 3. National Osteoporosis Foundation www nof.org Electronically Signed: Joaquin Fernandes MD at 8:35 EDT ,
== END | disposition home or self-care (01) ==
LOC: OPBD 09:33
PROVIDERS: PCP Internal Medicine; Referring Provider Nurse Practitioner Women's Health; Visit Provider Nurse Practitioner Women's Health
DX: M81.0 Age-related osteoporosis without current pathological fracture (principal)
CPT/HCPCS: 77080

== ENCOUNTER → 2024-01-28 | Outpatient (CLI) | payer MEDICARE, OTHER, SELFPAY ==
[2024-01-28 11:10] LABS: Absolute Lymphocyte Count 1.72 X10^3/uL (0.83-4.51); Absolute Neutrophil Count 2.5 X10^3/uL (2.0-7.7); Basophil# 0.06 X10^3/uL; Basophil% 1.3 % (0-1); Eosinophil# 0.04 X10^3/uL; Eosinophils% 0.9 % (0-5); Hematocrit 46.2 % (37-47); Hemoglobin 14.9 g/dL (12.0-15.0); Lymphocyte # 1.72 X10^3/ul (0.83-4.51); Lymphocyte % 36.8 % (19-41); Mean Corp Hgb Conc 32.3 g/dL (32-36); Mean Corpuscular Hgb 30.5 pg (27.0-32.0); Mean Corpuscular Volume 94.5 fL (81-99); Monocyte# 0.34 X10^3/uL; Monocyte% 7.3 % (0-10); NRBC Flagged by Analyzer 0 % (0-5); Neutrophil # 2.51 X10^3/uL (2.7-7.7); Neutrophil % 53.5 % (47-70); Platelet Count 225 K/mm3 (150-450); RBC Distribution Width CV 13.4 % (11.6-14.6); RBC Distribution Width SD 46.6 fl (35.1-43.9); Red Blood Count 4.89 M/mm3 (4.2-5.4); White Blood Count 4.7 K/mm3 (4.4-11.0)
[2024-01-28 11:15] LABS: Vitamin D,25 Hydroxy 58.8 ng/mL
[2024-01-28 11:22] LABS: AST(SGOT) 29 U/L (15-37); Alanine Aminotransfer ALT/SGPT 86 U/L (13-56); Albumin, Serum 3.7 g/dL (3.2-5.0); Alkaline Phosphatase 127 U/L (45-117); Anion Gap 3 (5-15); BUN 16 mg/dL (7-18); BUN/Creat Ratio 26.1 RATIO (10-20); Calcium,Total 9.1 mg/dL (8.5-10.1); Chloride 103 mmol/L (98-107); Cholesterol 302 mg/dL (200); Creatinine, Serum 0.61 mg/dL (0.55-1.02); EST Glomerular Filtration Rate 103 mL/min (>60); Est Glom Filt Rate - Afr Amer 125 mL/min (>60); Free T3 2.5 pg/mL (2.18-3.98); Globulin 3.6 g/dL (2.2-4.2); Glucose 100 mg/dL (74-106); High Density Lipoprotein 52 mg/dL; Potassium 3.9 mmol/L (3.5-5.1); Protein, Total 7.3 g/dL (6.4-8.2); Sodium Level 136 mmol/L (136-145); T4 Free Direct 1.16 ng/dL (0.76-1.46); Thyroid Stim Hormone (TSH) 0.75 uIU/mL (0.358-3.74); Triglycerides 201 mg/dL; Very Low Density Lipoprotein 40 mg/dL (5-40)
== END | disposition home or self-care (01) ==
LOC: LAB 10:24
PROVIDERS: PCP Internal Medicine; Referring Provider Internal Medicine; Visit Provider Internal Medicine
DX: I10 Essential (primary) hypertension (principal); E78.5 Hyperlipidemia, unspecified; E55.9 Vitamin D deficiency, unspecified; E03.9 Hypothyroidism, unspecified
CPT/HCPCS: 36415; 80053; 80061; 82306; 84439; 84443; 84481; 85025

== ENCOUNTER 2024-02-03 12:30 | Outpatient (RCR) | payer MEDICARE, OTHER, SELFPAY ==
--- NOTE | 2024-01-06 15:02 | HP.PTEVAL_ITS ---
Patient's Visit Information Visit Information Visit Information: EMMY CRUZ is a 68 year old F referred to Physical Therapy by Dr. Filiberto Tompkins MD with a diagnosis of TEAR OF L GLUTEUS MEDIUS TENDON. Date of Evaluation: 01/05/24 Physical Therapist: Millie De Jesus, PT, Cert MDT Visit Plan Frequency: 2-3x /Week Duration: 4-6 Weeks Plan: L LE ROM, STRETCHING AND STRENGTHENING IN A PAINFREE RANGE. FOCUS ON HIP ABDUCTORS, HIP ROTATORS, HIP EXTENSORS AND CORE STABILIZERS. US. HEP. Subjective Subjective: Work/Leisure: RETIRED Present symptoms: L HIP PAIN. Present since: 2 YEARS AGO Pain Scale: WORST 7/10, LEAST 2/10 Currently: 3/10 Is it getting better, worse or staying the same: GETTING WORSE Commenced as a result of: NO APPARENT REASON Symptoms at onset: MILD L HIP PAIN Worse: STAIRS, MODERATE ACTIVITY - WORKING AROUND THE HOUSE, RIDING STATIONARY BIKE, WALKING OUTSIDE, HOUSE CLEANING, GOING TO THE STORE Better: TOPICAL PRESCRIPTION PAIN CREAM, OTC PAIN MEDS, SITTING, LYING DOWN Disturbed sleep: YES Previous history/Previous treatment: HAS BEEN GETTING INJECTIONS FROM A PA WITH BENEFIT X APPROX 3 BUT THE LAST 2 DIDN'T WORK SO CHANGED TO DR. TOMPKINS BUT THAT ONE DIDN'T WORK EITHER. ALSO HAD ONE FROM DR. HORAN AND IT DIDN'T WORK EITHER. NO PRIOR PT. NO L HIP SURGERY. NO BACK SURGERY. Gait: NO AD'S. PATIENT REPORTS IT IS DIFFICULT TO GET OUT OF A CHAIR AND START WALKING BUT THEN SHE CAN WALK WITHOUT A LIMP. Bowel or Bladder Dysfunction: NO Accidents: HISTORY OF FALLS - FIRST FALL WAS KNOCKED DOWN BY A DOG, FELL ON L SIDE AND BROKE L ANKLE IN 2014. 2ND FALL 2022 IN [place] AND FX'D L WRIST AND R FOOT. NO INCREASED L HIP PROBLEMS AFTER THE FALL. Unexplained weight loss: NO Imaging: L HIP X-RAY AND MRI. TEAR OF L GLUT MEDIUS TENDON PMH/Recent major surgery: HTN, OSTEOPOROSIS, HIGH CHOLESTEROL, CHRONIC BACK PAIN - SELF MANAGED. OTHER: GOING TO [place] IN MARCH AND PLANS TO HAVE SURGERY UPON RETURN IF DOES NOT GET BETTER WITH THERAPY. PATIENT REPORTS DR. TOMPKINS DID NOT GIVE HER ANY RESTRICTIONS. Objective Objective: Sitting/Standing Posture: REDUCED LUMBAR LORDOSIS. NO RELEVANT LATERAL SHIFT. Active Correction of posture: NE Other Observations: THIS PATIENT AMBULATES INDEP'LY INTO PT WITHOUT ANY AD'S AND A MILD LIMP ON THE L LE. SHE IS ABLE TO INDEP'LY TRANSFER FROM SIT TO STAND WITHOUT UE ASSIST. Sensory deficit: RICKI LE LIGHT TOUCH SENSATION GROSSLY INTACT AND SYMMETRICAL ROM deficit: RICKI HIP ROTATOR, HIP FLEXOR, HIP EXTENSOR, HS AND CALF TIGHTNESS. Motor deficit: R HIP 4/5, KNEE 5/5, ANKLE 5/5. L HIP FLEX 4-/5, ABD 3+/5, IR 3+/5, ER 4-/5, EXT 4-/5, KNEE 5/5, ANKLE 5/5. PATIENT C/O INCREASED L LATERAL HIP PAIN WITH L HIP ROTATION, ABD, AND EXT TESTING BUT NW A RESULT. Dural Signs: NEGATIVE RICKI LE'S. Lumbar mvmt loss: flex - NIL ext - MARI R SG - MARI L SG - MARI PATIENT REPORTS INCREASED L HIP PAIN WITH LUMBAR FLEXION TESTING BUT NW. Core strength: POOR Palpation: LEFT LATERAL HIP TENDERNESS. Goals Goal 1:: DECREASE C/O L HIP PAIN BY AT LEAST 50% TO EASE ADL'S Goal Time Frame: 6-8 Weeks Goal 2:: PATIENT WILL HAVE INCREASED CORE AND L LE STRENGTH BY AT LEAST 1/2 MUSCLE GRADE Goal Time Frame: 6-8 Weeks Goal 3:: PATIENT WILL SCORE AT LEAST 5 POINTS BETTER ON LEFS QUESTIONNAIRE Goal Time Frame: 6-8 Weeks Goal 4:: PATIENT WILL BE ABLE TO GO UP AND DOWN STEPS RECIPROCALLY WITH ONE HR UNLIMITTED. Goal Time Frame: 6-8 Weeks Goal 5:: PATIENT WILL BE INDEP WITH A HEP FOR CONTINUED IMPROVEMENT ONCE FORMAL PHYSICAL THERAPY CONCLUDES. Goal Time Frame: 6-8 Weeks Rehabilitation Potential Physical Therapy Diagnosis: THIS PATIENT PRESENTS TO PT WITH L HIP AND CORE WEAKNESS ALONG WITH CORE AND HIP STIFFNESS LIMITING WEIGHTBEARING ACTIVITIES. Rehabilitation Potential: Fair Anticipated Interventions Patient/Client Instruction: Educate patient on: Condition, Plan of Care and Risk Factors For the Purpose of:: To improve self management Therapeutic Exercise to Include: Strength training, Flexibilty training and Neuromotor development For the Purpose of:: To decrease pain, To increase ROM, To improve muscle performance and motor function, To increase tolerance to activity/condition/position, To improve ability of physical actions for home/community/work/leisure and To improve gait and locomotor functions Cryotherapy (ice pack, ice massage): Yes Thermo therapy (hot pack): Yes Ultrasound (thermal/non thermal): Yes (1.5 W/CM2 X 8 MIN 100%) For the Purpose of:: To decrease pain and To improve nutrient delivery to tissue Text: Thank you for the opportunity to evaluate your patient. For Medicare and Medicare HMO plans, please review the plan of care and approve it. It will need to be FAXED BACK to us at [phone] for Medicare purposes. For Medicare only, by signing this I certify the plan of care. Please let me know if there are questions or concerns regarding this plan of care. Physician Signature: Date:
--- NOTE | 2024-02-03 14:07 | HP.PTDCSUM ---
Discharge Summary D/C summary: It has been my pleasure to treat EMMY CRUZ referred by Dr. Filiberto Zhang MD, with the diagnosis of TEAR OF L GLUTEUS MEDIUS TENDON for a total of 10 visit(s). Discharge Date: 02/03/24 Please see the following information for a summary of their discharge status. Subjective Subjective: PATIENT REPORTS 50 TO 70% IMPROVEMENT. STATES SHE IS LOOKING FORWARD TO DOING HER GYM EX PROGRAM AND FEELS READY TO CONTINUE ON HER OWN WITH ALL OF HER EX'S Pain L glute: Pain Intensity (Out of 10): 0 LB: Pain Intensity (Out of 10): 2 Overall Improvement % Improvement: 50 Objective Objective/Function: THIS PATIENT HAS RESPONDED VERY WELL TO PHYSICAL THERAPY AND IS INDEP WITH AN EX PROGRAM NOW AND APPROPRIATE FOR DISCHARGE. SHE STILL HAS SOME HIP WEAKNESS AND PAIN BUT IS MUCH BETTER OVER-ALL. UPON EXAM TODAY: Motor deficit: R LE: 5/5. L HIP FLEX 4/5, ABD 4-/5, IR 4-/5, ER 4-/5, EXT 4/5, KNEE 5/5, ANKLE 5/5. PATIENT DENIES PAIN WITH MMT'ING TODAY. Lumbar mvmt loss: flex - NIL ext - MOD R SG - MOD L SG - MOD PATIENT DENIES L HIP PAIN WITH LUMBAR FLEXION TESTING TODAY. Core strength: FAIR STEPS: PATIENT IS ABLE TO ASCEND AND DESCEND STEPS RECIPROCALLY WITH ONE HR NOW BUT WITH C/O A LITTLE BIT OF L HIP PAIN WHEN LEADING UP WITH LLE. NO DEVIATIONS NOTED. Goals Goal 1:: DECREASE C/O L HIP PAIN BY AT LEAST 50% TO EASE ADL'S Goal Progress: Goal Met Goal 2:: PATIENT WILL HAVE INCREASED CORE AND L LE STRENGTH BY AT LEAST 1/2 MUSCLE GRADE Goal Progress: Goal Met Goal 3:: PATIENT WILL SCORE AT LEAST 5 POINTS BETTER ON LEFS QUESTIONNAIRE Goal Progress: Goal Met Goal 4:: PATIENT WILL BE ABLE TO GO UP AND DOWN STEPS RECIPROCALLY WITH ONE HR UNLIMITTED. Goal Progress: Goal Met Goal 5:: PATIENT WILL BE INDEP WITH A HEP FOR CONTINUED IMPROVEMENT ONCE FORMAL PHYSICAL THERAPY CONCLUDES. Goal Progress: Goal Met Plan Plan: D/C TO INDEP EX. PATIENT AGREEABLE. D/C Information d/c sentence: If there are questions or concerns regarding this patient's physical therapy, please feel free to call me at [phone]. Thank you for the referral of this patient. Sincerely, Millie De Jesus, PT, Cert MDT Balance/Gait/Functional tests Balance/Special Test Scores Lower Extremity Functional Score: 68 Improvement % Improvement: 50
== END 2024-02-03 19:00 | disposition home or self-care (01) ==
LOC: PT 12:30
PROVIDERS: PCP Internal Medicine; Referring Provider Orthopaedic Surgery Sports Medicine; Visit Provider Orthopaedic Surgery Sports Medicine
DX: S73.01 Posterior subluxation and dislocation of hip (principal)
CPT/HCPCS: 97110; 97162; 97530

== ENCOUNTER → 2024-02-04 | Outpatient (CLI) | payer MEDICARE, OTHER, SELFPAY ==
[2024-02-04 13:00] LABS: AST(SGOT) 20 U/L (15-37); Alanine Aminotransfer ALT/SGPT 38 U/L (13-56); Albumin, Serum 3.6 g/dL (3.2-5.0); Alkaline Phosphatase 100 U/L (45-117); Anion Gap 3 (5-15); BUN 21 mg/dL (7-18); BUN/Creat Ratio 32.7 RATIO (10-20); Chloride 103 mmol/L (98-107); Creatinine, Serum 0.64 mg/dL (0.55-1.02); EST Glomerular Filtration Rate 98 mL/min (>60); Est Glom Filt Rate - Afr Amer 118 mL/min (>60); Globulin 3.6 g/dL (2.2-4.2); Glucose 90 mg/dL (74-106); Potassium 3.8 mmol/L (3.5-5.1); Protein, Total 7.2 g/dL (6.4-8.2); Sodium Level 136 mmol/L (136-145)
== END | disposition home or self-care (01) ==
LOC: LAB 12:09
PROVIDERS: PCP Internal Medicine; Referring Provider Internal Medicine; Visit Provider Internal Medicine
DX: R79.89 Other specified abnormal findings of blood chemistry (principal)
CPT/HCPCS: 36415; 80053

== ENCOUNTER → 2024-03-11 | Outpatient (CLI) | payer MEDICARE, OTHER, SELFPAY ==
--- NOTE | 2024-03-11 08:14 | US_ITS ---
STUDY: ABDOMINAL ULTRASOUND - RIGHT UPPER QUADRANT REASON FOR VISIT: Female, 68 years old Nausea vomiting TECHNIQUE: Ultrasound evaluation of the right upper quadrant was performed with real-time and static rebollar-scale imaging. TECHNICAL QUALITY: Adequate. COMPARISON: None. FINDINGS: Liver: The liver measures 15 cm. There is increased echogenicity consistent with fatty infiltration. The bile ducts are within normal limits. There is hepatic color flow. The direction of portal flow is hepatopetal. There is no demonstrated mass lesion. Gallbladder: Normal distended gallbladder. The gallbladder wall measures 2 mm. There is a positive sonographic Lim''s sign. There is no pericholecystic fluid. There are no gallstones. There is a 4 mm x 4 mm polyp adherent to the gallbladder wall. Common Bile Duct (C.B.D.): The common bile duct measures 4 mm. Pancreas: Normal size of the head, body and tail of the pancreas. There is normal echogenicity of the pancreas. There is no demonstrated pancreatic mass or cyst. Right Kidney: Normal size of the right kidney. The right kidney measures 11.7 cm x 4.8 cm x 5.4 cm. Normal renal cortex. The right cortex measures 1.4 cm. There is no demonstrated renal mass or cyst. There is no right hydronephrosis. US/Gallbladder IMPRESSION: Mild degree of fatty infiltration of the liver. 4 mm x 4 mm gallbladder polyp. Electronically Signed: Joaquin Fernandes MD at 16:38 EDT ,
== END | disposition home or self-care (01) ==
LOC: US 08:11
PROVIDERS: PCP Internal Medicine; Referring Provider Internal Medicine; Visit Provider Internal Medicine
DX: R11.2 Nausea with vomiting, unspecified (principal); R79.89 Other specified abnormal findings of blood chemistry
CPT/HCPCS: 76705

== ENCOUNTER → 2024-03-24 | Outpatient (CLI) | payer MEDICARE, OTHER, SELFPAY ==
--- NOTE | 2024-03-24 09:45 | NM_ITS ---
CLINICAL: 68-year-old female with history of chronic nausea. RADIONUCLIDE HEPATOBILIARY SCINTIGRAPHY COMPARISON: Abdominal ultrasound report 03/11/2024 FINDINGS: Following the intravenous administration of 5.6 mCi of 99m Tc Mebrofenin, hepatobiliary images reveal: 1. Relatively prompt and homogeneous radiopharmaceutical concentration is noted by a normal sized liver. No parenchymal defects are identified. 2. Gallbladder activity is identified at 30 minutes post radiopharmaceutical administration. 3. Small intestinal tract is observed at 15 minutes following tracer injection. 4. Washout of the radiopharmaceutical by the hepatic parenchyma appears qualitatively normal. Cholecystokinin (0.02 ug/kg) was administered intravenously over a 30-minute period. The post CCK gallbladder ejection fraction calculated at 20 minutes following Cholecystokinin administration was noted to be 22.0 % (normal greater than 35%). NM/Hepatobilliary Img w/Pharm Int IMPRESSION: 1. ABNORMAL 99m Tc Mebrofenin hepatobiliary imaging examination with Cholecystokinin. A. A gallbladder ejection fraction calculated to be less than 35% following the administration of Cholecystokinin is consistent with the presence of functional hepatobiliary disease (gallbladder and/or sphincter of Oddi dyskinesia) and/or organic hepatobiliary disease (chronic acalculous cholecystitis and/or cystic duct syndrome) in patients with intermediate to high pretest probabilities of hepatobiliary illness. (Wilma Mathur et al, Journal of Nuclear Medicine 32:1695, 1991). Electronically Signed: Jonathan Ulrich DO at 9:00 EDT ,
== END | disposition home or self-care (01) ==
LOC: NM 09:43
PROVIDERS: PCP Internal Medicine; Referring Provider Internal Medicine; Visit Provider Internal Medicine
DX: R11.2 Nausea with vomiting, unspecified (principal); R79.89 Other specified abnormal findings of blood chemistry
CPT/HCPCS: 78227; A9537; J2805

== ENCOUNTER → 2024-04-14 | Outpatient (CLI) | payer MEDICARE, OTHER, SELFPAY ==
[2024-04-14 17:52] LABS: Mucous, Urine 0 SEEN /hpf (<or=2+)
[2024-04-14 18:17] LABS: Glucose, Dipstick Normal (Normal); Ketone-Dipstick Negative (Negative); Leukocyte Esterase-Dipstick 500 /ul (Negative); Nitrite-Dipstick Positive (Negative); Occult Blood-Urine 10 /ul (Negative); Protein-Dipstick 15 mg/dl (Negative); Specific Gravity, Urine 1.015 (1.002-1.030); Urine Clarity Clear (Clear); Urine Urobilinogen 8 mg/dl (Normal)
[2024-04-14 18:22] LABS: Color, Urine SEE COMMENT BELOW (Yellow); Urine Bilirubin Dipstick 6 mg/dL (Negative)
[2024-04-14 18:25] LABS: Bacteria RARE /hpf (None Seen); Red Blood Cells-Urine 0-5 SEEN /hpf (0-5); Squamous Epithelial Cells - UA 0-5 SEEN /hpf (5-10); White Blood Cells 25-50 SEEN /hpf (0-5)
== END | disposition home or self-care (01) ==
PROVIDERS: PCP Internal Medicine; Referring Provider Physician Assistant; Visit Provider Physician Assistant
DX: R30.0 Dysuria (principal); N39.0 Urinary tract infection, site not specified
CPT/HCPCS: 81001; 87086; 87088; 87186

== ENCOUNTER → 2024-06-11 | Outpatient (CLI) | payer MEDICARE, OTHER, SELFPAY | END | disposition home or self-care (01) | LOC: LABSPEC 15:00 | PROVIDERS: PCP Internal Medicine; Referring Provider Physician Assistant Surgical; Visit Provider Physician Assistant Surgical | DX: N39.0 Urinary tract infection, site not specified (principal) | CPT/HCPCS: 87077; 87086; 87088; 87186 ==

== ENCOUNTER 2024-06-15 05:58 | Day surgery (SDC) | payer MEDICARE, OTHER, SELFPAY ==
--- NOTE | 2024-06-10 09:58 | EKG12_ITS ---
Test Reason : PRE OP Blood Pressure : / mmHG Vent. Rate : 080 BPM Atrial Rate : 080 BPM P-R Int : 134 ms QRS Dur : 060 ms QT Int : 370 ms P-R-T Axes : 019 065 068 degrees QTc Int : 426 ms Normal sinus rhythm Normal ECG Confirmed by aYn Radford ([id number]), editor continuity and script LONNY PINEDA ([id number]) on 06/11/2024 6:02:26 AM Referred By: Elia Roman Confirmed By:Yan Radford
[2024-06-15] VITALS (12 sets, daily range): BP systolic 118–160; BP diastolic 68–102; PULSE 63–88; RESP 16–20; TEMP 36.1–36.8; O2SAT 95–100; BMI 27.3
--- NOTE | 2024-06-15 06:30 | RAD_ITS ---
STUDY: INTRAOPERATIVE GLANDULAR. REASON FOR EXAM: Female, 68 years old. PAIN, LAP JJ WITH GRAMS FLUOROSCOPY TIME (if supplied): ( 10.3 seconds ) minutes/seconds. 4.75 mGy. TECHNIQUE: An intraoperative cholangiogram was performed of the surgeon. Imaging was submitted. COMPARISON: None. FINDINGS: There is opacification of the central intrahepatic biliary ducts as well as the common bile duct and pancreatic duct. No intraluminal filling defect is seen. Free flow of contrast is seen in the duodenum. RAD/Cholangiogram/ O R,Initial IMPRESSION: Unremarkable examination. Electronically Signed: Joaquin Fernandes MD at 9:08 EDT ,
[2024-06-15] MEDS: Lactated Ringers 1,000 ML 15 ML IV ×2 (06:46→09:49)
--- NOTE | 2024-06-15 06:49 | PCM.HP.BLA ---
History and Physical Date of Admission: 06/15/24 Intake Vital Signs 03/24/2413:21 04/07/2408:57 04/28/2413:18 Height 5 ft 3 in 5 ft 3 in 5 ft 3 in Weight: 153 lb 154 lb 2 oz BMI 27.1 27.3 BP 114/72 117/83 H Blood Pressure Location Lt brachial Rt brachial Position Sitting Sitting Respiration 18 Pulse 90 80 Pulse Source Monitor Monitor Temp 98.4 F 97.4 F L Temp Source Temporal Temporal Pulse Oximetry (%) 92 96 Oxygen Delivery Method room air room air Intake Visit Reasons: NAUSEA AND VOMITTING Chief Complaint: Abnormal HIDA scan Is patient in pain?: No Allergies nitrofurantoin (From Macrobid) Allergy (Verified 04/28/24 13:19) Othernitrofurantoin macrocrystalline (From Macrodantin) Allergy (Verified 04/28/24 13:19) Hives Medications ?Medication ?Instructions ?Recorded ?Confirmed ?Type Multivitamin 2 tab.chew PO DAILY 04/01/15 04/28/24 History calcium carbonate (Calcium 600) 600 mg PO BID 08/02/20 04/28/24 History cholecalciferol (vitamin D3) 100 100 mcg PO DAILY 08/02/20 04/28/24 History mcg (4,000 unit) capsule caranberry pills 100 mg PO PRN PRN Bladder Spasms 06/19/22 04/28/24 History lactobacillus combination no.4 3 3,000 mmu cells PO DAILY 03/03/23 04/28/24 History billion cell capsule (Probiotic) venlafaxine 75 mg capsule,extended 75 mg PO DAILY #90 caps 12/16/23 04/28/24 Rx release 24 hr levothyroxine 112 mcg tablet 112 mcg PO DAILY #90 tabs 03/17/24 04/28/24 Rx ascorbic acid (vitamin C) 1,000 mg 1 g PO DAILY PRN 03/24/24 04/28/24 History tablet meloxicam 15 mg tablet 15 mg PO QDAY PRN 03/24/24 04/28/24 History losartan 50 mg tablet 50 mg PO DAILY #90 tabs 03/29/24 04/28/24 Rx Have you fallen in the past year?: No PFSH Medical History Abnormal biliary HIDA scan Osteopenia Osteoporosis Tear of left gluteus medius tendon History of fracture of right ankle Internal hemorrhoid Wears glasses Cancer Post-menopausal Thyroid disease Back pain History of diverticulitis Non-smoker DVT (deep venous thrombosis) History of stress test Hypertension COVID-19 History of cyst of breast Hyperlipemia History of basal cell carcinoma Chronic UTI Hot flashes Hyperlipidemia Closed left ankle fracture Surgical History History of surgery on left wrist History of hemorrhoidectomy Hx of colonoscopy Internal hemorrhoid History of tonsillectomy and adenoidectomy left ankle fracture S/P thyroidectomy S/P vaginal hysterectomy Family History Mother Heart diseaseFather Heart disease Myocardial infarctionBrother Prostate cancer CancerOther Depression Hyperlipemia Hypertension Social History Smoking Status: Never smoker alcohol intake: never substance use type: does not use caffeine: Yes what type of physical activity do you participate in: walking and weight training frequency: 3-4 times per week seatbelt use: always do you feel safe at home: Yes additional social history: Patient is retired does not take aspirin or Ibuprofen HPI HPI HPI: Patient is a 68-year-old female here with gallbladder issues. She says that she has been having attacks for the past 10 years. She says that when the attacks happen she has dry heaving as well as diarrhea and nausea. Patient does not associate it with food. She does not report pain with the episodes either. ROS General General: Yes fatigue; No weight change, appetite, colon cancer, breast cancer or weakness HEENT HEENT: No difficulty swallowing, eye injury, eye surgery, swollen glands or hoarseness Endo Endocrine: No thyroid disease, diabetes mellitus, thyroid cancer, Hair loss, heat intolerance or cold intolerance Skin Skin: No rash or changing moles Musc Musculoskeletal: No back problems, arthritis, rheumatoid arthritis, gout or joint pain Cardio Cardiovascular: Yes high blood pressure; No murmur, pacemaker, heart disease, atrial fibrillation, heart attack, heart stent, palpitations, shortness of breat with exertion or chest pain Psych Psychiatric: No depression, anxiety or hearing voices Resp Respiratory: No shortness of breath, No sleep apnea, No cough, No COPD, No asthma, No emphysema and No wheezing Gastro Gastrointestinal: No abdominal pain, Yes nausea or vomiting, Yes diarrhea, Yes constipation, Yes blood in stool, No acid reflux, Yes hemorrhoids, No ulcers, Yes gallbladder problem and No black,tarry stools Dagoberto Hematologic: No blood thinners, No blood disorders, No bleeding, No anemia and Yes blood clots Neuro Neurologic: No numbness, No tingling and No weakness Exam Const General: cooperative Orientation: alert and oriented x3 HENMT Head: normal to inspection Neck Neck: normal visual inspection and full ROM Chest Chest palpation & inspection: normal inspection of the chest Resp Effort & Inspection: normal respiratory effort Auscultation: clear to auscultation bilaterally Cardio Rate: regular rate Rhythm: regular rhythm GI Inspection: non-distended Palpation: soft and nontender Skin General: no rashes or lesions noted Neuro General: patient alert and patient oriented x3 Extrem General: full ROM Psych Appearance: grossly normal Mental Status: mental status grossly normal Assessment and Plan Assessment and Plan (1) Abnormal biliary HIDA scan: Status: Acute Plan: Patient has a HIDA scan showed biliary dyskinesia with ejection fraction of 22%. Ultrasound was negative except for gallbladder polyp. I discussed her symptoms with her in detail and I explained that cholecystectomy may not solve the problem as her symptoms are atypical. She understands and would still like to proceed with cholecystectomy. I discussed the procedure in detail with the patient. I discussed the risks, benefits, and alternatives of the procedure. I discussed the risks including but not limited to bleeding, infection, injury to surrounding organs such as the liver, bile duct, bowels. I did discuss the possibility of having to convert to an open procedure as well as the possibility that if any injuries occurred this may necessitate further surgery at a tertiary care center. Elia Roman MD Pager: [facility] [address] [place] [address], [address] [place] [address] Office: I have examined the patient and the H&P has been reviewed. There are no clinical changes since date of exam.
--- NOTE | 2024-06-15 07:17 | PCM.PRE.AN2 ---
ASA Classification* ASA Classification ASA Classification: 2 Assessment & Plan Anesthesia* Anesthesia Assessment Anesthesia Assessment: Discussed sedation and/or anesthesia options, risks, benefits, and alternatives with patient/parents/legal guardian/POA. Questions invited. The patient/parents/legal guardian/POA seems to understand and agrees to proceed with anesthesia plan. Reviewed the physical assessment, medical history, allergy history and patient home medications list prior to surgery/procedure/anesthetic and documented any changes. Performed airway and anesthesia risk assessments. Anesthesia Type Anesthesia Type: General (see written pre anesthesia record for full assessment) Anesthesia Focused Assessment* Temperature: 98.2 F Pulse Rate: 76 Blood Pressure: 129/72 Respiratory Rate: 18 Pulse Ox: 97 Airway Assessment Mouth opens: >3 cm Mallampati Score: II Focused Labs Anesthesia Preop lab: CBC WBC 4.7 K/mm3 (4.4-11.0) 01/28/24 10:27 RBC 4.89 M/mm3 (4.2-5.4) 01/28/24 10:27 Hgb 14.9 g/dL (12.0-15.0) 01/28/24 10:27 Hct 46.2 % (37-47) 01/28/24 10:27 Plt Count 225 K/mm3 (150-450) 01/28/24 10:27 CHEMISTRY Potassium 3.8 mmol/L (3.5-5.1) 02/04/24 12:12 Sodium 136 mmol/L (136-145) 02/04/24 12:12 BUN 21 mg/dL (7-18) H 02/04/24 12:12 Creatinine 0.64 mg/dL (0.55-1.02) 02/04/24 12:12 Glucose 90 mg/dL (74-106) 02/04/24 12:12 TSH 1.670 uIU/mL (0.358-3.740) 06/10/24 10:22 COAG Pre-Assessment Diagnosis/Proposed Procedure Planned Operative Procedure(s): Laparoscopic, Cholecystectomy with IOC Anesthesia History Anesthesia History - heavy forger: Anesthesia History - heavy forger Hx Hospitalization No 06/04/24 11:21 Any Problems With Anesthesia No 06/04/24 11:21 Cholinesterase deficiency No 06/04/24 11:21 You/Your Family Experience No 06/04/24 11:21 fever (hyperthermia) with Relationship brother 06/04/24 11:21 Recent Exposure to Contagious No 06/15/24 06:36 Disease Does patient have nerve No 06/04/24 11:21 stimulator Patient instructed to have device shut off --Does patient have Pacemaker No 06/15/24 06:36 or ICD? When Was Last Pacemaker Check QUESTION #4 FULL TEXT: You/Your Family Experience fever (hyperthermia) with Anesthesia Last Oral Intake Last Oral intake: Last Oral Intake NPO since 23:40 06/15/24 06:36 Meds taken in AM with sips of water? Meds patient instructed to take am of surgery PONV PONV - heavy forger: PONV - heavy forger Female Yes 06/04/24 11:21 HX of Motion Sickness No 06/04/24 11:21 HX of N/V After Surgery No 06/04/24 11:21 Non-Smoker Yes 06/04/24 11:21 Duration of Surgery greater Yes 06/04/24 11:21 than 60 minutes Number of Risk Factors 3 06/04/24 11:21 PONV Score Moderate Risk 06/04/24 11:21 Height & Weight Height & Weight: Anesthesia: Height & Weight Height 5 ft 3 in 06/15/24 06:36 Weight: 70 kg 06/15/24 06:36 Body Mass Index (BMI) 27.3 06/15/24 06:36 Respiratory Assessment Respiratory Assessment - heavy forger: Respiratory Tract Infection Hx - heavy forger Hx Respiratory Tract Infection No 06/04/24 11:21 STOP Sleep Apnea STOP Sleep Apnea - heavy forger: STOP Sleep Apnea - heavy forger Hx Hypertension Yes: CONTROLLED WITH MED 06/04/24 11:21 Hx Sleep Apnea No 06/04/24 11:21 CPAP No 06/04/24 11:21 BIPAP No 06/04/24 11:21 Do you snore loudly (louder No 06/04/24 11:21 than talking or can be heard Do you often feel tired/ No 06/04/24 11:21 fatigued/ sleepy during daytime? Has anyone observed you stop No 06/04/24 11:21 breathing during sleep? STOP Results Negative 06/04/24 11:21 QUESTION #5 FULL TEXT : Do you snore loudly (louder than talking or can be heard through closed doors)? Tobacco Use History Tobacco Use History - heavy forger: Tobacco Use History - heavy forger Tobacco Use Smoking Status Never smoker 06/04/24 11:21 Hx Tobacco Use No 06/04/24 11:21 Years Smoking Packs Smoked per Day Smoking Cessation Date was within the last 15 years Hx Smoking Cessation Date Hx Smoking Cessation Counseling Hematologic Medial History Hematologic Hx - heavy forger: Hematologic Medical Hx - tray server Hx of Blood Transfusion Yes 06/04/24 11:21 Hx of Transfusion in last 3 No 06/04/24 11:21 Months Date of Last Transfusion (if within last 3 months) Ever experience any problems No 06/04/24 11:21 with transfusion(s)? Specify any problems Hx of Preganancy in last 3 No 06/04/24 11:21 Months Nurse Filling Out Transfusion VCHRISTIN 06/04/24 11:21 & Questions: Date: 06/04/24 06/04/24 11:21 Time: 11:22 06/04/24 11:21 Patient unable to answer at this time (ie. confused, unrespo /Reproduction History /Reproductive History - heavy forger: /Reproductive Hx- heavy forger Hx Now Gestational Age (in weeks): EDC: Hx Hx Para Hx Section SAB No 06/04/24 11:21 Active Medications Active Medications: Current Medications Generic Name Dose Route Start Last Admin Trade Name Freq PRN Reason Stop Dose Admin Cefotetan Disodium 2 gm/ 100 mls @ 200 mls/hr 06/15/24 07:30 Sodium Chloride IV 06/15/24 07:59 PREOP ONE Lactated Ringer's 1,000 mls @ 15 mls/hr 06/15/24 06:15 06/15/24 06:46 IV 15 mls/hr .Q48H HERBERT Administration PFSH Medical History Abnormal biliary HIDA scan Osteoporosis Tear of left gluteus medius tendon History of fracture of right ankle Internal hemorrhoid Wears glasses Cancer Post-menopausal Thyroid disease Back pain History of diverticulitis Non-smoker DVT (deep venous thrombosis) History of stress test Hypertension COVID-19 History of cyst of breast Osteopenia Hyperlipemia History of basal cell carcinoma Chronic UTI Hot flashes Hyperlipidemia Closed left ankle fracture Home Medications ?Medication ?Instructions ?Recorded ?Last Taken ?Type calcium carbonate (Calcium 600) 600 mg PO DAILY 08/02/20 05/14/24 History cholecalciferol (vitamin D3) 100 100 mcg PO DAILY 08/02/20 05/14/24 History mcg (4,000 unit) capsule lactobacillus combination no.4 3 3,000 mmu cells PO DAILY 03/03/23 05/14/24 History billion cell capsule (Probiotic) venlafaxine 75 mg capsule,extended 75 mg PO DAILY #90 caps 12/16/23 06/14/24 Rx release 24 hr levothyroxine 112 mcg tablet 112 mcg PO DAILY #90 tabs 03/17/24 06/15/24 Rx ascorbic acid (vitamin C) 1,000 mg 1 g PO DAILY PRN PRN 03/24/24 Unknown History tablet meloxicam 15 mg tablet 15 mg PO QDAY PRN pain 03/24/24 05/14/24 History losartan 50 mg tablet 50 mg PO DAILY #90 tabs 03/29/24 06/14/24 Rx cranberry 500 mg capsule 500 mg PO DAILY 06/04/24 05/14/24 History d-mannose 500 mg capsule 500 mg PO DAILY 06/04/24 05/14/24 History ciprofloxacin HCl 500 mg tablet 500 mg PO BID 7 days #14 tabs 06/11/24 06/14/24 Rx Allergy/AdvReac Type Severity Reaction Status Date / Time nitrofurantoin (From Allergy Other Verified 06/15/24 06:32 Macrobid) nitrofurantoin Allergy Hives Verified 06/15/24 06:32 macrocrystalline (From Macrodantin) Family History Mother Heart disease Father Heart disease Myocardial infarction Brother Prostate cancer Cancer Other Depression Hyperlipemia Hypertension Surgical History Hx of colonoscopy History of surgery on left wrist History of hemorrhoidectomy Hx of colonoscopy Internal hemorrhoid History of tonsillectomy and adenoidectomy left ankle fracture S/P thyroidectomy S/P vaginal hysterectomy Social History Smoking Status: Never smoker alcohol intake: never substance use type: does not use caffeine: Yes what type of physical activity do you participate in: walking and weight training frequency: 3-4 times per week seatbelt use: always do you feel safe at home: Yes additional social history: Patient is retired does not take aspirin or Ibuprofen Review of Systems (Anesthesia) ROS Narrative System reviewed and no additional complaints, except as documented.
[2024-06-15] MEDS: Cefotetan 2 GM in 0.9% Normal Saline (100mL MB+) 100 ML IV (07:28)
--- NOTE | 2024-06-15 07:30 | GALL_PTH ---
PATIENT: EMMY CRUZ LOC: [facility] [place] U#:[id number] AGE/SX: 68/F ROOM: RE06/15/[address]: Dr. Elia Roman MD : [id number] BED: DIS: 06/15/2024 SPEC #: [id number] RECD: 06/15/24 08:44 STATUS: MARIANELA FRANK #: [id number] COLLEEN: 06/15/24 07:[address]: Elia Roman DEPT: SURGICAL PATHOLOGY RECD BY: Helena Arrieta ENTERED: 06/15/24 10:24 SP TYPE: TIMOTHY FOSTER DR: Dr. Lucila Menard MD Tissues: Gallbladder, NOS Procedures: Surgery Specimen Level III HEADER OPERATION: Laparoscopic, cholecystectomy with IOC PRE-OP DIAGNOSIS: Abnormal biliary HIDA scan TISSUE SUBMITTED: Gallbladder MICROSCOPIC DIAGNOSIS Gallbladder, cholecystectomy: Chronic cholecystitis and cholesterolosis. Focal area of Rokitansky- Aschoff sinuses at the fundus. VIRY. 06/16/2024 MICROSCOPIC DESCRIPTION Slides are reviewed. GROSS DESCRIPTION Received is one container labeled with the patient's name and designated gallbladder. The specimen consists of a gallbladder measuring 8.5 cm in length and up to 4.0 cm in diameter. The external surface is pink-rico, smooth and glistening for the most part. Focally it is granular, hemorrhagic and contains cautery artifact. The gallbladder contains yellow mucoid bile and no stones are identified. A few yellowish polyps are noted consistent with cholesterolosis measuring 0.1 to 0.4cm in greatest dimension. The mucosa is bile-stained and without any mass lesions. The gallbladder wall measures up to 0.1 cm in thickness. Focal area of gallbladder wall shows a thickening at the fundus and measures up to 0.5cm in greatest dimension. Toll Operator sections from the gallbladder and the cystic duct are submitted in two cassettes. Cassette 1 contains the yellowish polyp in the mucosa and cassette 2 contains the thickened area of gallbladder wall at the fundus, entirely submitted. / VIRY: 06/15/2024 TC:3 CPT: 29118
--- NOTE | 2024-06-15 08:10 | PCM.POST.ANE ---
Anesthesia: Postop Eval I Current Vital Signs Temperature: 96.9 F Pulse Rate: 76 Blood Pressure: 146/102 Respiratory Rate: 18 Pulse Ox: 96 Oxygen Delivery Method: Room Air Assessment Airway patent: Yes Spontaneous unlabored respirations: Yes Mental status: Awake and Calm nausea: No Vomiting: No Anesthesia Complication: No Fluid Hydration Crystalloid volume administer (ml): 1,100 Total IV fluid infused: 1,100 Progress Note Anesthesia document: Postop Eval 1 completed: Yes
[2024-06-15] MEDS: Bupivacaine 0.25% 30 ML Vial (08:15)
--- NOTE | 2024-06-15 08:25 | PCM.OPRPT ---
Report of Operation Date of Procedure: 06/15/24 Pre-Operative Diagnosis: Biliary dyskinesia and biliary colic Post-Operative Diagnosis: Same Surgery/Procedure Performed:: Laparoscopic cholecystectomy with cholangiograms Type of Anesthesia: General/Regional Specimen's removed: Gallbladder Estimated Blood Loss (mL): 5 Description of Procedure: After obtaining informed consent patient was brought back to the operating room. General anesthesia was induced. The abdomen was prepped and draped in usual sterile fashion. A small midline incision was made superior to the umbilicus and deepened to the level of fascia. The fascia was elevated and incised. Next the peritoneum was elevated and incised in the same fashion. Finger sweep was performed and the Kessler trocar was placed into the abdomen. The balloon was inflated. The abdomen was inflated to 15 mmHg. Next a camera was introduced into the abdomen and the abdomen was inspected. Next under direct visualization three 5-mm ports were placed one subxiphoid and 2 subcostal. Next the gallbladder was elevated and retracted toward the right shoulder. The peritoneum was stripped from the gallbladder. The infundibulum was located and retracted laterally. Next the triangle of Calot was dissected and the cystic duct and cystic artery were identified. Cholangiograms were performed. The Stewart clamp was used to clamp across the infundibulum and the catheter needle was inserted into the gallbladder. Under fluoroscopy contrast was instilled into the gallbladder and the common duct, cystic duct as well as proximal hepatic ducts were identified. There was good filling of the duodenum. There were no filling defects noted in the common bile duct. The clamp was removed as well as the needle and the infundibulum was grasped once more. Three hemolock clips were placed across the cystic duct. The cystic duct was then divided leaving 2 clips on the stump. The cystic artery was clipped and divided in the same fashion. The hook cautery was then used to take the gallbladder off of the gallbladder bed. Hemostasis was obtained. Gallbladder fossa was irrigated and no active bleeding or bile leakage was noted. Next the camera was introduced in the subxiphoid port. An Endopouch bag was placed through the umbilical port and the gallbladder was placed into it. The gallbladder was then removed through the umbilical incision. The camera was then reinserted through the umbilical port. The gallbladder fossa was inspected once more and noted to be hemostatic with no leaking bile. The abdomen was suctioned dry. The 5 mm ports were removed under direct visualization. The umbilical port was then removed and the air was removed from the abdomen. Next using an 0 Vicryl suture the umbilical fascia was closed in a slmiur-st-grdpe fashion. The umbilical port site was irrigated local anesthetic was administered to all the incisions. All the incisions were closed with interrupted subcuticular 4-0 Monocryl sutures followed by Steri-Strips and dressings. The patient was awoken and taken to PACU in stable condition. Admit VTE Documentation VTE Mechan Device Prophylaxis: SCD's
--- NOTE | 2024-06-15 09:18 | POSTOPAN2_ITS ---
Anesthesia Postop Eval I Sum Postop Eval Completion status Anesthesia document: Postop Eval 1 completed: Yes Anesthesia Postop Eval I Summary Anesthesia Postop Eval I Summary: Anesthesia Postop Eval I: Assessment Summary Airway patent Yes 06/15/24 08:38 [email or web address] Spontaneous unlabored Yes 06/15/24 08:38 [email or web address] respirations Mental status Awake,Calm 06/15/24 08:38 [email or web address] nausea No 06/15/24 08:38 [email or web address] Vomiting No 06/15/24 08:38 [email or web address] Anesthesia Postop Eval I: Fluid Summary Crystalloid volume administer 1,100 06/15/24 08:38 [email or web address] (ml) Colloids volume administered ( ml) Blood Product volume administered (ml) Total IV fluid infused 1,100 06/15/24 08:38 [email or web address] Anesthesia Postop Eval I: Summary Notes Anesthesia Complication No 06/15/24 08:38 [email or web address] Anesthesia Complication Comment: Post-operative progress note Anesthesia: Postop Eval II Evaluation Mental status: Awake and Calm Pain Level: 1 nausea: No Vomiting: No Complications Anesthesia Complication: No
--- NOTE | 2024-06-15 09:18 | PCM.POSTANE2 ---
Anesthesia Postop Eval I Sum Postop Eval Completion status Anesthesia document: Postop Eval 1 completed: Yes Anesthesia Postop Eval I Summary Anesthesia Postop Eval I Summary: Anesthesia Postop Eval I: Assessment Summary Airway patent Yes 06/15/24 08:38 CORPORATE REAL ESTATE SPECIALIST.SCHR Spontaneous unlabored Yes 06/15/24 08:38 CORPORATE REAL ESTATE SPECIALIST.SCHR respirations Mental status Awake,Calm 06/15/24 08:38 CORPORATE REAL ESTATE SPECIALIST.SCHR nausea No 06/15/24 08:38 CORPORATE REAL ESTATE SPECIALIST.SCHR Vomiting No 06/15/24 08:38 CORPORATE REAL ESTATE SPECIALIST.SCHR Anesthesia Postop Eval I: Fluid Summary Crystalloid volume administer 1,100 06/15/24 08:38 CORPORATE REAL ESTATE SPECIALIST.SCHR (ml) Colloids volume administered ( ml) Blood Product volume administered (ml) Total IV fluid infused 1,100 06/15/24 08:38 CORPORATE REAL ESTATE SPECIALIST.SCHR Anesthesia Postop Eval I: Summary Notes Anesthesia Complication No 06/15/24 08:38 CORPORATE REAL ESTATE SPECIALIST.SCHR Anesthesia Complication Comment: Post-operative progress note Anesthesia: Postop Eval II Evaluation Mental status: Awake and Calm Pain Level: 1 nausea: No Vomiting: No Complications Anesthesia Complication: No
--- NOTE | 2024-06-15 10:45 | EX.PCM.DISCH ---
Discharge Instructions Procedure Gallbladder Diet Discharge Diet: Light diet - advance as tolerated Activity Discharge Activity: May Not Drive (for 2-3 days or while taking narcotic pain medications.) and - (Do not drive, work heavy equipment or sign legal documents for 24 hours.) May shower in (days): 1 Lifting Restrictions: 20 lbs for 2 weeks Additional Activity Instructions:: Pain medication may cause nausea. You should typically eat light foods as you take your pain medications. Pain medication may also cause constipation. If this is a problem for you, please discuss with your doctor. Dressing / Incision Call your doctor if your incision/area has: Continuous Slow Oozing, Sudden Increased Bleeding, Increased Pain/ Swelling, Increased Redness and Foul Smelling Discharge Call your doctor if you observe: Fever of 101 or Higher Suture Line Care: Avoid Pulling/Pushing and Avoid Pinching/Bending Remove Dressing in: 2 days Additional Dressing/Incision Instructions:: Leave operative bandaids on for 2 days. When you remove dressing, leave Steri-Strips on until your follow-up appointment, or until the Steri-Strips fall off on their own. Alternate ibuprofen and Tylenol for pain control, oxycodone for breakthrough pain Follow Up Care Please Follow Up With: Elia Roman MD When: Please call to schedule 2 week follow up appointment. [phone] Test Results: Test results from this visit will be discussed in further detail at your follow-up appointment, if applicable. Discharge Plan Admission Attending Provider: Elia Roman Primary Care Provider: Lucila Menard Instructions Print Language: Citizen Of [place] Discharge Orders/Prescriptions Prescriptions: New oxycodone 5 mg Tablet 5 - 10 mg PO Q4H PRN PRN (Reason: Pain Score 4-10) 5 Days Qty: 14 0RF No Action ascorbic acid (vitamin C) 1,000 mg tablet 1 g PO DAILY PRN (Reason: PRN) calcium carbonate [Calcium 600] 600 mg calcium (1,500 mg) tablet 600 mg PO DAILY cholecalciferol (vitamin D3) 100 mcg (4,000 unit) capsule 100 mcg PO DAILY venlafaxine 75 mg capsule,extended release 24hr 75 mg PO DAILY Qty: 90 4RF meloxicam 15 mg tablet 15 mg PO QDAY PRN (Reason: pain) ciprofloxacin HCl 500 mg tablet 500 mg PO BID 7 Days Qty: 14 0RF Probiotic 3 billion cell Capsule 3,000 mmu cells PO DAILY Rx Instructions: administer with a meal cranberry 500 mg capsule 500 mg PO DAILY Rx Instructions: administer with a meal d-mannose 500 mg capsule 500 mg PO DAILY levothyroxine 112 mcg tablet 112 mcg PO DAILY Qty: 90 3RF losartan 50 mg tablet 50 mg PO DAILY Qty: 90 3RF Referrals / Follow Up: Lucila Menard MD [Primary Care Provider] - Disposition Disposition (needs filled in before D/C Order can be placed): Home, Self Care
== END 2024-06-15 12:41 | disposition home or self-care (01) ==
LOC: SDC 06:00 → AC 06:01
PROVIDERS: Anesthesiology; PCP Internal Medicine; Referring Provider Surgery; Visit Provider Surgery
PROC: (CPT 47610; principal; 2024-06-15 07:10)
DX: K80.50 Calculus of bile duct without cholangitis or cholecystitis without obstruction (principal); K82.8 Other specified diseases of gallbladder; I10 Essential (primary) hypertension; E89.0 Postprocedural hypothyroidism; E55.9 Vitamin D deficiency, unspecified; M81.0 Age-related osteoporosis without current pathological fracture; K59.00 Constipation, unspecified; Z79.899 Other long term (current) drug therapy; Z79.890 Hormone replacement therapy; Z86.718 Personal history of other venous thrombosis and embolism; Z85.828 Personal history of other malignant neoplasm of skin
CPT/HCPCS: 47563; 00790; 36415; 74300; 76000; 84443; 88304; 93005; J7120; J2405

== ENCOUNTER → 2024-09-24 | Outpatient (CLI) | payer MEDICARE, OTHER, SELFPAY ==
[2024-09-24 12:07] LABS: Absolute Lymphocyte Count 2.02 X10^3/uL (0.83-4.51); Absolute Neutrophil Count 2.9 X10^3/uL (2.0-7.7); Basophil# 0.05 X10^3/uL; Basophil% 0.9 % (0-1); Eosinophil# 0.08 X10^3/uL; Eosinophils% 1.5 % (0-5); Hematocrit 49.3 % (37-47); Hemoglobin 15.5 g/dL (12.0-15.0); Lymphocyte # 2.02 X10^3/ul (0.83-4.51); Mean Corp Hgb Conc 31.4 g/dL (32-36); Mean Corpuscular Hgb 30.5 pg (27.0-32.0); Mean Platelet Vol. 11.6 fl (6.2-12.0); Monocyte# 0.37 X10^3/uL; Monocyte% 6.8 % (0-10); NRBC Flagged by Analyzer 0 % (0-5); Neutrophil # 2.93 X10^3/uL (2.7-7.7); Neutrophil % 53.6 % (47-70); Platelet Count 218 K/mm3 (150-450); RBC Distribution Width CV 12.1 % (11.6-14.6); RBC Distribution Width SD 43.8 fl (35.1-43.9); Red Blood Count 5.08 M/mm3 (4.2-5.4); White Blood Count 5.5 K/mm3 (4.4-11.0)
[2024-09-24 12:16] LABS: Vitamin D,25 Hydroxy 44.2 ng/mL
[2024-09-24 12:31] LABS: ALB/GLOB Ratio 0.9 RATIO (0.9-2.4); AST(SGOT) 42 U/L (15-37); Alanine Aminotransfer ALT/SGPT 99 U/L (13-56); Albumin, Serum 3.6 g/dL (3.2-5.0); Alkaline Phosphatase 163 U/L (45-117); Anion Gap 3 (5-15); BUN 17 mg/dL (7-18); BUN/Creat Ratio 22.2 RATIO (10-20); Calcium,Total 9.4 mg/dL (8.5-10.1); Chloride 102 mmol/L (98-107); Cholesterol 340 mg/dL (200); Creatinine, Serum 0.77 mg/dL (0.55-1.02); EST Glomerular Filtration Rate 79 mL/min (>60); Est Glom Filt Rate - Afr Amer 96 mL/min (>60); Glucose 102 mg/dL (74-106); High Density Lipoprotein 56 mg/dL; Potassium 5.2 mmol/L (3.5-5.1); Protein, Total 7.6 g/dL (6.4-8.2); Sodium Level 135 mmol/L (136-145); Triglycerides 224 mg/dL; Very Low Density Lipoprotein 45 mg/dL (5-40)
== END | disposition home or self-care (01) ==
LOC: BIMLAB 09:49
PROVIDERS: PCP Internal Medicine; Referring Provider Internal Medicine; Visit Provider Internal Medicine
DX: E03.9 Hypothyroidism, unspecified (principal); M81.0 Age-related osteoporosis without current pathological fracture
CPT/HCPCS: 36415; 80053; 80061; 82306; 84443; 85025

== ENCOUNTER → 2024-10-01 | Outpatient (CLI) | payer MEDICARE, OTHER, SELFPAY ==
[2024-10-01 12:24] LABS: AST(SGOT) 24 U/L (15-37); Alanine Aminotransfer ALT/SGPT 46 U/L (13-56); Albumin, Serum 3.8 g/dL (3.2-5.0); Alkaline Phosphatase 122 U/L (45-117); Anion Gap 4 (5-15); BUN 17 mg/dL (7-18); BUN/Creat Ratio 21.5 RATIO (10-20); Calcium,Total 9.6 mg/dL (8.5-10.1); Chloride 101 mmol/L (98-107); Creatinine, Serum 0.79 mg/dL (0.55-1.02); EST Glomerular Filtration Rate 77 mL/min (>60); Est Glom Filt Rate - Afr Amer 93 mL/min (>60); Globulin 3.8 g/dL (2.2-4.2); Glucose 124 mg/dL (74-106); Potassium 4.6 mmol/L (3.5-5.1); Protein, Total 7.6 g/dL (6.4-8.2); Sodium Level 135 mmol/L (136-145)
== END | disposition home or self-care (01) ==
LOC: BIMLAB 09:35
PROVIDERS: PCP Internal Medicine; Referring Provider Internal Medicine; Visit Provider Internal Medicine
DX: R79.89 Other specified abnormal findings of blood chemistry (principal); E87.5 Hyperkalemia
CPT/HCPCS: 36415; 80053

== ENCOUNTER → 2024-11-05 | Outpatient (CLI) | payer MEDICARE, OTHER, SELFPAY ==
--- NOTE | 2024-11-05 16:22 | US_ITS ---
PROCEDURE: ULTRASOUND KIDNEYS AND BLADDER REASON FOR EXAM: RECURRENT URINARY TRACT INFECTIONS. TECHNIQUE: Real-time grayscale imaging was performed along with routine image documentation. COMPARISON: ULTRASOUND DATED 03/11/2024 AND 01/14/2019. FINDINGS: Normal renal sizes, parenchymal thicknesses, and echotextures. No hydronephrosis. No cysts or large solid renal masses. RIGHT Kidney Size: 11.4 x 4.5 x 5.4 cm. Volume: 145 mL Cortical Thickness (if discernible): 1.39 cm (>6mm is normal) LEFT Kidney Size: 11.4 x 4.8 x 5.0 cm Volume: 159 mL Cortical Thickness (if discernible): 1.22 cm (>6mm is normal) Urinary bladder Wall: No thickening. 0.2 cm in thickness. No masses. Pre void volume: 399 mL. Ureteral jets Right: Visualized. Left: Visualized. US/Kidney and Bladder IMPRESSION: NORMAL RENAL ULTRASOUND Reading Location: [facility]
== END | disposition home or self-care (01) ==
LOC: US 16:19
PROVIDERS: PCP Internal Medicine; Referring Provider Urology; Visit Provider Urology
DX: N39.0 Urinary tract infection, site not specified (principal)
CPT/HCPCS: 76770

== ENCOUNTER → 2024-11-10 | Outpatient (CLI) | payer MEDICARE, OTHER, SELFPAY ==
[2024-11-10 13:02] LABS: Thyroid Stim Hormone (TSH) 0.812 uIU/mL (0.300-4.200)
== END | disposition home or self-care (01) ==
LOC: BIMLAB 10:34
PROVIDERS: PCP Internal Medicine; Referring Provider Internal Medicine; Visit Provider Internal Medicine
DX: E03.9 Hypothyroidism, unspecified (principal)
CPT/HCPCS: 36415; 84443

== ENCOUNTER 2024-12-06 12:11 | Observation (INO) | payer MEDICARE, OTHER, SELFPAY ==
[2024-12-06] VITALS (10 sets, daily range): BP systolic 122–182; BP diastolic 65–88; PULSE 76–106; RESP 13–18; TEMP 36.3–36.6; O2SAT 94–100; BMI 27.4
--- NOTE | 2024-12-06 12:15 | EKG12_ITS ---
Test Reason : Blood Pressure : */* mmHG Vent. Rate : 81 BPM Atrial Rate : 81 BPM P-R Int : 148 ms QRS Dur : 58 ms QT Int : 362 ms P-R-T Axes : 28 50 61 degrees QTcB Int : 420 ms Normal sinus rhythm Septal infarct , age undetermined Abnormal ECG Confirmed by JAYDON CATES, ZHANG ([id number]), medical transcription editor LONNY PINEDA ([id number]) on 12/08/2024 8:15:14 AM Referred By: Confirmed By: ZHANG INTERIANO MD
--- NOTE | 2024-12-06 12:17 | EX.ED.DYSGE1 ---
HPI History of Present Illness Chief Complaint: Neuro S/Sx Informant: patient Narrative Narrative: 69-year-old female presenting to the emergency room with changes in vision of the right eye. Patient states she went to bed last night around 2100 hrs. This morning she notes that her right eye seems a bit droopy. The pupil is dilated when compared to the left and when she looks down she has double vision. She went to see her eye doctor who sent her to the emergency department. She brings a piece of paper with her from her eye doctor. Patient notes 2 prior postoperative DVTs. Not currently on blood thinners. She notes a headache posterior to the right eye. She denies any arm leg or speech symptoms. [facility] Medical History History of DVT (deep vein thrombosis) Personal history of colonic polyps Abnormal biliary HIDA scan Osteoporosis Tear of left gluteus medius tendon History of fracture of right ankle Internal hemorrhoid Wears glasses Post-menopausal Thyroid disease Back pain History of diverticulitis Non-smoker DVT (deep venous thrombosis) History of stress test Hypertension COVID-19 History of cyst of breast Osteopenia Hyperlipemia History of basal cell carcinoma Chronic UTI Hot flashes Hyperlipidemia Closed left ankle fracture Home Medications ?Medication ?Instructions ?Recorded ?Last Taken ?Type calcium carbonate (Calcium 600) 600 mg PO DAILY 08/02/20 05/14/24 History cholecalciferol (vitamin D3) 100 100 mcg PO DAILY 08/02/20 05/14/24 History mcg (4,000 unit) capsule lactobacillus combination no.4 3 3,000 mmu cells PO DAILY 03/03/23 05/14/24 History billion cell capsule (Probiotic) venlafaxine 75 mg capsule,extended 75 mg PO DAILY #90 caps 12/16/23 06/14/24 Rx release 24 hr ascorbic acid (vitamin C) 1,000 mg 1 g PO DAILY PRN PRN 03/24/24 Unknown History tablet meloxicam 15 mg tablet 15 mg PO QDAY PRN pain 03/24/24 05/14/24 History losartan 50 mg tablet 50 mg PO DAILY #90 tabs 03/29/24 06/14/24 Rx cranberry 500 mg capsule 500 mg PO DAILY 06/04/24 05/14/24 History d-mannose 500 mg capsule 500 mg PO DAILY 06/04/24 05/14/24 History denosumab 60 mg/mL subcutaneous 60 mg subcut [id number] #1 mL 09/23/24 Unknown Rx syringe (Prolia) levothyroxine 125 mcg tablet 125 mcg PO DAILY #30 tabs 09/27/24 Unknown Rx simvastatin 20 mg tablet 20 mg PO QHS #90 tabs 11/19/24 Unknown Rx cephalexin 250 mg capsule 250 mg PO QHS 12/06/24 Unknown History Allergy/AdvReac Type Severity Reaction Status Date / Time nitrofurantoin (From Allergy Other Verified 12/06/24 12:13 Macrobid) nitrofurantoin Allergy Hives Verified 12/06/24 12:13 macrocrystalline (From Macrodantin) Family History Mother Heart disease Father Heart disease Myocardial infarction Brother Prostate cancer Cancer Other Depression Hyperlipemia Hypertension Surgical History Status post total thyroidectomy S/P cholecystectomy Hx of colonoscopy History of surgery on left wrist History of hemorrhoidectomy Hx of colonoscopy Internal hemorrhoid History of tonsillectomy and adenoidectomy left ankle fracture S/P vaginal hysterectomy Social History household members: none current occupational status: retired current occupation: [employer] Smoking Status: Never smoker alcohol intake: never substance use type: does not use caffeine: Yes what type of physical activity do you participate in: walking and weight training frequency: 3-4 times per week seatbelt use: always do you feel safe at home: Yes additional social history: Patient is retired does not take aspirin or Ibuprofen EXAM Physical Exam Const Vital Signs: 12/06/24 12:13 12/06/24 13:12 12/06/24 14:00 Temperature 97.4 F L Temperature Source Temporal Pulse Rate 86 76 80 Respiratory Rate 18 16 15 Blood Pressure 182/88 H 132/65 H 122/79 H Blood Pressure Mean 119 87 93 Pulse Ox 97 99 Oxygen Delivery Method Room Air 12/06/24 15:00 12/06/24 16:00 Temperature Temperature Source Pulse Rate 87 92 Respiratory Rate 17 16 Blood Pressure 131/80 H 129/76 H Blood Pressure Mean 97 93 Pulse Ox 97 97 Oxygen Delivery Method Room Air Positive well nourished and well developed General Appearance ED: well developed HEENT Reports normocephalic, head/scalp atraumatic and moist mucous membranes Eyes PERRL Eyes Narrative: Right pupil is dilated compared to the left. There is drooping of the eyelids. Patient reports double vision when looking inferiorly. No conjunctival injection. There is no exophthalmos. No crusting no rash. Neck no lymphadenopathy, supple and no JVD Resp normal respiratory effort and clear to auscultation bilaterally Cardio regular rate, regular rhythm and no murmurs GI normal to inspection, nondistended, normoactive bowel sounds and non-tender Palpation: soft Back/Spine no CVA tenderness and normal ROM Extremity normal to inspection General Extremety ED: Negative for edema General Extremity: Negative for edema Neuro oriented x3 and CN's II-XII intact bilaterally Sensorium / Orientation: alert Motor Exam: strength 5/5 throughout Psych mental status grossly normal Mood & Affect: Negative for depressed or tearful Skin no rashes or lesions noted and no wounds MDM MDM MDM Narrative Medical decision making narrative: Differential diagnosis includes but not limited to stroke hemorrhage aneurysm malignancy trauma demyelinating diseases autoimmune infectious Khoury CTA of the head and neck was obtained. Basic blood work was essentially negative. EKG is a normal sinus rhythm with a ventricular rate of 81 bpm. Results of the CTA are currently pending. Care of patient be checked out to the oncoming physician-Dr. Castanon. Lab Data Attestation: I reviewed the patient's lab results. Labs: Laboratory Results - last 24 hr 12/06/24 12:38 WBC 6.9 RBC 4.83 Hgb 15.0 Hct 45.6 MCV 94.4 MCH 31.1 MCHC 32.9 RDW Std Deviation 49.8 H RDW Coeff of Keiry 14.4 Plt Count 198 MPV 11.0 Immature Gran % (Auto) 0.300 Neut % (Auto) 65.9 Lymph % (Auto) 25.8 Cross % (Auto) 6.4 Eos % (Auto) 0.9 Baso % (Auto) 0.7 Absolute Neuts (auto) 4.5 Absolute Lymphs (auto) 1.78 Nucleated RBC % 0 PT 12.5 INR 0.9 APTT 23.1 L Sodium 139 Potassium 4.2 Chloride 102 Carbon Dioxide 26.2 Anion Gap 11 BUN 18 Creatinine 0.60 L Estim Creat Clear Calc 62.37 Est GFR (MDRD) Non-Af 97 BUN/Creatinine Ratio 29.1 H Glucose 95 Calcium 9.4 EKG Initial EKG: Attestation: I personally reviewed and interpreted this EKG as follows: Comments: Normal sinus rhythm ventricular rate of 81 bpm Management Discussion w/another healthcare provider: Hospitalist Discharge Plan Triage Chief Complaint: Neuro S/Sx ED Provider: Elias Castanon Dx/Rx/DC Orders Prescriptions: No Action ascorbic acid (vitamin C) 1,000 mg tablet 1 g PO DAILY PRN (Reason: PRN) calcium carbonate [Calcium 600] 600 mg calcium (1,500 mg) tablet 600 mg PO DAILY cholecalciferol (vitamin D3) 100 mcg (4,000 unit) capsule 100 mcg PO DAILY venlafaxine 75 mg capsule,extended release 24hr 75 mg PO DAILY Qty: 90 4RF meloxicam 15 mg tablet 15 mg PO QDAY PRN (Reason: pain) Prolia 60 mg/mL syringe 60 mg subcut [id number] Qty: 1 0RF Probiotic 3 billion cell Capsule 3,000 mmu cells PO DAILY Rx Instructions: administer with a meal cranberry 500 mg capsule 500 mg PO DAILY Rx Instructions: administer with a meal d-mannose 500 mg capsule 500 mg PO DAILY cephalexin 250 mg capsule 250 mg PO QHS losartan 50 mg tablet 50 mg PO DAILY Qty: 90 3RF levothyroxine 125 mcg tablet 125 mcg PO DAILY Qty: 30 3RF simvastatin 20 mg tablet 20 mg PO QHS Qty: 90 1RF Primary Care Provider: Amelia Seth Referrals: Amelia Seth MD [Primary Care Provider] - Print Language: French NIHSS NIHSS 1a. Level of Consciousness: Alert; keenly responsive 1b. LOC Questions: Answers BOTH questions correctly. 1c. LOC Commands: Performs both tasks correctly. 2. Best Gaze: Partial gaze palsy; 3. Visual: No visual loss 4. Facial Palsy: Normal symmetrical movements 5a. Left Arm: No drift; arm holds 90 (or 45) degrees for full 10 seconds 5b. Right Arm: No drift; arm holds 90 (or 45) degrees for full 10 seconds 6a. Left Leg: No drift; leg holds 30-degree position for full 5 seconds 6b. Right Leg: No drift; leg holds 30-degree position for full 5 seconds 7. Limb Ataxia: Absent 8. Sensory: Normal; no sensory loss 9. Best Language: No aphasia; normal 10. Dysarthria: Normal 11. Extinction and Inattention: No abnormality Total: 1
[2024-12-06 12:51] LABS: Absolute Lymphocyte Count 1.78 X10^3/uL (0.83-4.51); Absolute Neutrophil Count 4.5 X10^3/uL (2.0-7.7); Basophil# 0.05 X10^3/uL; Basophil% 0.7 % (0-1); Eosinophil# 0.06 X10^3/uL; Eosinophils% 0.9 % (0-5); Hematocrit 45.6 % (37-47); Lymphocyte # 1.78 X10^3/ul (0.83-4.51); Lymphocyte % 25.8 % (19-41); Mean Corp Hgb Conc 32.9 g/dL (32-36); Mean Corpuscular Hgb 31.1 pg (27.0-32.0); Mean Corpuscular Volume 94.4 fL (81-99); Monocyte# 0.44 X10^3/uL; Monocyte% 6.4 % (0-10); NRBC Flagged by Analyzer 0 % (0-5); Neutrophil # 4.54 X10^3/uL (2.7-7.7); Neutrophil % 65.9 % (47-70); Platelet Count 198 K/mm3 (150-450); RBC Distribution Width CV 14.4 % (11.6-14.6); RBC Distribution Width SD 49.8 fl (35.1-43.9); Red Blood Count 4.83 M/mm3 (4.2-5.4); White Blood Count 6.9 K/mm3 (4.4-11.0)
[2024-12-06 12:56] LABS: International Normalized Ratio 0.9; Prothrombin Time (Protime)PT. 12.5 SECONDS (11.7-14.9)
[2024-12-06 12:57] LABS: Partial Thromboplast Time 23.1 Seconds (24.1-36.2)
[2024-12-06 13:29] LABS: Anion Gap 11 (5-15); BUN 18 mg/dL (4-19); BUN/Creat Ratio 29.1 RATIO (10-20); Calcium,Total 9.4 mg/dL (7.6-11.0); Carbon Dioxide 26.2 mmol/L (21.0-32.0); Chloride 102 mmol/L (98-108); EST Glomerular Filtration Rate 97 (>60); Estimated Creatinine Clearance 62.37 ml/min (50-250); Glucose 95 mg/dL (70-99); Potassium 4.2 mmol/L (3.3-5.1); Sodium Level 139 mmol/L (133-145)
[2024-12-06] MEDS: 0.9% Normal Saline (1000mL) 1,000 ML 1000 ML IV (13:30)
--- NOTE | 2024-12-06 15:00 | CT_ITS ---
PROCEDURE: CT HEAD WITHOUT CONTRAST, CTA HEAD AND NECK W/ CONTRAST 12/06/2024 REASON FOR EXAM: 69-year-old female, droopy eye, double vision, concern for 3rd cranial nerve palsy. TECHNIQUE: CT imaging of the head was performed without contrast administration with coronal and sagittal reformats. CTA imaging of the head and neck from the aortic arch to the skull vertex with intravenous contrast. Coronal and Sagittal reconstruction series were provided. 3D, 3D post processing, 3D reconstructions, Maximum intensity projection (MIPs) Volume rendering and Shaded surface rendering was provided. CONTRAST: Isovue-300 VOLUME: 100mL One or more dose reduction techniques were used (e.g., Automated exposure control, adjustment of the mA and/or kV according to patient size, use of iterative reconstruction technique). RADIATION DOSE SUMMARY: CTDlvol: 60 mGy DLP: 1500 mGycm COMPARISON: MRI head 06/21/2021. FINDINGS: CT head findings: Moderate patchy supratentorial white matter hypodensities. The rebollar-white matter interfaces are otherwise maintained. No acute intracranial hemorrhage or mass effect. The basal cisterns are patent. The mastoids and visualized paranasal sinuses are well-aerated. Unremarkable orbits. No acute calvarial fracture or scalp hematoma. CTA findings: The aortic arch and its branch vessels are widely patent without focal stenosis or occlusion. Patent bilateral vertebral arteries. Patent bilateral common carotid and internal carotid arteries without calcific plaque. 0% stenosis bilaterally by NASCET criteria. The bilateral anterior, middle and posterior cerebral arteries are widely patent. No aneurysm or arteriovenous malformation. Major venous structures: Unremarkable. Other findings: None. The biapical lungs are clear. No aggressive osseous lesions. CT/CTA Head AND Neck W/ Contrast IMPRESSION: 1. No acute intracranial hemorrhage or mass effect seen on noncontrast CT head. 2. No large vessel occlusion, aneurysm or AVM. 3. Mild white matter disease, compatible with patient age. Reading Location: [id number]
--- NOTE | 2024-12-06 19:50 | PCM.HP.STD ---
HPI - General General Date of Admission: 12/06/24 Date of Service: 12/06/24 Chief Complaint: Right eye changes HPI Narrative EMMY CRUZ, is a 69-year-old female history of postop DVT X 2 no longer on anticoagulation, anxiety, hypothyroidism, hypertension who presented to [facility] ED 12/06/2024 due to changes in vision in her right eye. She went to bed last night at 2100 and this morning she felt that her right eye was a little bit droopy, the pupil is dilated when compared to the left and she gets double vision when looking down. She went to see her eye doctor who sent her to the emergency department. Does note headache posterior to right eye. In ED patient vitally stable and lab workup unremarkable, CTA head and neck with no acute process and vitals and lab workup fairly benign. Hospitalist contacted for admission for CVA rule out and MRI. Patient evaluated at bedside and reports that she had been having little bit of a headache behind both eyes that has now just been behind her right eye, notes that this morning it was harder to open her right eye compared to her left and that when she glances down into the right she has double vision though this is somewhat improving. [place] a little lightheaded briefly yesterday but this is not recurred. ROS otherwise negative [facility] Medical History History of DVT (deep vein thrombosis) Personal history of colonic polyps Abnormal biliary HIDA scan Osteoporosis Tear of left gluteus medius tendon History of fracture of right ankle Internal hemorrhoid Wears glasses Post-menopausal Thyroid disease Back pain History of diverticulitis Non-smoker DVT (deep venous thrombosis) History of stress test Hypertension COVID-19 History of cyst of breast Osteopenia Hyperlipemia History of basal cell carcinoma Chronic UTI Hot flashes Hyperlipidemia Closed left ankle fracture Home Medications ?Medication ?Instructions ?Recorded ?Last Taken ?Type calcium carbonate (Calcium 600) 600 mg PO DAILY 08/02/20 12/03/24 History cholecalciferol (vitamin D3) 100 100 mcg PO DAILY 08/02/20 12/05/24 History mcg (4,000 unit) capsule lactobacillus combination no.4 3 3,000 mmu cells PO DAILY 03/03/23 12/05/24 History billion cell capsule (Probiotic) venlafaxine 75 mg capsule,extended 75 mg PO DAILY #90 caps 12/16/23 12/05/24 Rx release 24 hr meloxicam 15 mg tablet 15 mg PO QDAY PRN pain 03/24/24 05/14/24 History losartan 50 mg tablet 50 mg PO DAILY #90 tabs 03/29/24 12/05/24 Rx d-mannose 500 mg capsule 500 mg PO DAILY 06/04/24 12/05/24 History denosumab 60 mg/mL subcutaneous 60 mg subcut [id number] #1 mL 09/23/24 10/25/24 Rx syringe (Prolia) levothyroxine 125 mcg tablet 125 mcg PO DAILY #30 tabs 09/27/24 12/06/24 Rx simvastatin 20 mg tablet 20 mg PO QHS #90 tabs 11/19/24 12/05/24 Rx cephalexin 250 mg capsule 250 mg PO QHS 12/06/24 12/05/24 History Allergy/AdvReac Type Severity Reaction Status Date / Time nitrofurantoin (From Allergy Other Verified 12/06/24 12:13 Macrobid) nitrofurantoin Allergy Hives Verified 12/06/24 12:13 macrocrystalline (From Macrodantin) Family History Mother Heart disease Father Heart disease Myocardial infarction Brother Prostate cancer Cancer Other Depression Hyperlipemia Hypertension Surgical History Status post total thyroidectomy S/P cholecystectomy Hx of colonoscopy History of surgery on left wrist History of hemorrhoidectomy Hx of colonoscopy Internal hemorrhoid History of tonsillectomy and adenoidectomy left ankle fracture S/P vaginal hysterectomy Social History household members: none current occupational status: retired current occupation: [employer] Smoking Status: Never smoker alcohol intake: never substance use type: does not use caffeine: Yes what type of physical activity do you participate in: walking and weight training frequency: 3-4 times per week seatbelt use: always do you feel safe at home: Yes additional social history: Patient is retired does not take aspirin or Ibuprofen ROS ROS Narrative General: Denies fever/chills HENT: Some frontal headache more so behind right eye now, denies stuffy nose, denies sore throat EYES: Some blurry vision when glancing down into the right Resp: Denies cough, denies shortness of breath Cardiac: Denies chest pain GI: Denies abdominal pain, denies changes in bowel, denies nausea/vomiting : Denies changes in urination Extremity: Denies swelling MSK: Denies weakness Neuro: Denies any numbness/tingling Heme: Denies any bleeding or bruising Skin: Denies rashes Psychiatric: No complaints voiced Vital Signs Vital Signs Vital Signs: 12/06/24 12:13 12/06/24 13:12 12/06/24 14:00 Temperature 97.4 F L Temperature Source Temporal Pulse Rate 86 76 80 Respiratory Rate 18 16 15 Blood Pressure 182/88 H 132/65 H 122/79 H Blood Pressure Mean 119 87 93 Pulse Ox 97 99 Oxygen Delivery Method Room Air 12/06/24 15:00 12/06/24 16:00 12/06/24 17:00 Temperature Temperature Source Pulse Rate 87 92 85 Respiratory Rate 17 16 16 Blood Pressure 131/80 H 129/76 H 131/71 H Blood Pressure Mean 97 93 91 Pulse Ox 97 97 94 Oxygen Delivery Method Room Air Room Air 12/06/24 18:02 12/06/24 19:00 12/06/24 19:38 Temperature 98 F Temperature Source Pulse Rate 79 85 80 Respiratory Rate 16 13 14 Blood Pressure 137/84 H 148/76 H 132/85 H Blood Pressure Mean 101 100 100 Pulse Ox 94 98 100 Oxygen Delivery Method Room Air Weight Weight: 70.216 kg Body Mass Index (BMI) 27.4 Physical Exam Narrative General: Alert, oriented, no apparent distress HEENT: Atraumatic Eyes: Anicteric, extraocular movements intact, does appear to have some drooping of right eyelid and both pupils slightly dilated Neck: Supple Respiratory: Clear to auscultation bilaterally, normal respiratory effort Cardiovascular: Regular rate and rhythm GI: Soft, nontender, nondistended Extremities: No edema Musculoskeletal: Strength 5 out of 5 in right upper extremity, 5 out of 5 left upper extremity, 5 out of 5 right lower extremity, 5 out of 5 left lower extremity Neuro: Right eyelid a little bit drooping otherwise cranial nerves II through XII intact, [id number] without significant difficulty bilaterally Skin: No rashes appreciated Psych: Cooperative Results Lab / Micro Data 12/06/24 12:38 12/06/24 12:38 Labs: Laboratory Results - last 24 hr 12/06/24 12:38: WBC 6.9, RBC 4.83, Hgb 15.0, Hct 45.6, MCV 94.4, MCH 31.1, MCHC 32.9, RDW Std Deviation 49.8 H, RDW Coeff of Keiry 14.4, Plt Count 198, MPV 11.0, Immature Gran % (Auto) 0.300, Neut % (Auto) 65.9, Lymph % (Auto) 25.8, Randall % (Auto) 6.4, Eos % (Auto) 0.9, Baso % (Auto) 0.7, Absolute Neuts (auto) 4.5, Absolute Lymphs (auto) 1.78, Nucleated RBC % 0, PT 12.5, INR 0.9, APTT 23.1 L, Sodium 139, Potassium 4.2, Chloride 102, Carbon Dioxide 26.2, Anion Gap 11, BUN 18, Creatinine 0.60 L, Estim Creat Clear Calc 62.37, Est GFR (MDRD) Non-Af 97, BUN/Creatinine Ratio 29.1 H, Glucose 95, Calcium 9.4 Imaging Radiology Impression Head/Neck CTA 12/06/24 15:00 IMPRESSION: 1. No acute intracranial hemorrhage or mass effect seen on noncontrast CT head. 2. No large vessel occlusion, aneurysm or AVM. 3. Mild white matter disease, compatible with patient age. Reading Location: [facility] Assessment & Plan Assessment/Plan (1) Neurologic abnormality: PLAN: Plan # Right lid drooping, double vision when glancing down -Admit to tele -CTA head and neck no acute process -MRI and MRA ordered per outpatient Optho recommendations -NIH q4hr -asa, statin -Echo w/ bubble study -PT/OT/Speech eval -Teleneuro consult ordered -Hold BP medications to allow for permissive hypertension for 24 hours unless SBP greater than 220 or DBP greater than 120 or until stroke is ruled out #Depression/anxiety -Continue home medications #Hypothyroidism -Continue Synthroid #Hypertension -Holding antihypertensives as above # History of 2 previous postoperative DVTs -Not on anticoagulation chronically #Chronic abx ppx -Patient chronically on Keflex 250 nightly nightly, this was prescribed by Dr. Lang, will continue #DVT ppx: SCDs Radha Ramirez MD Charges/Coding Visit Charges Inpatient E&M: 26846 Init Hosp L2
--- NOTE | 2024-12-06 20:33 | ECHOD_ITS ---
Reason For Study Reason For Study: TIA/Stroke Procedure This was a 2D Doppler, Color Flow transthoracic echocardiogram. Exam performed portable in patient room. Left Ventricle Normal LV size. Left ventricular systolic function is normal. The left ventricular ejection fraction is 60 %. Stage 1 diastolic dysfunction. No regional wall motion abnormalities noted. Right Ventricle Normal RV size. Normal systolic function. Atria Normal left atrium. Normal right atrium. Mitral Valve Normal mitral valve. Tricuspid Valve Normal tricuspid valve. Aortic Valve Normal aortic valve. Trisinus/trileaflet aortic valve. Pulmonic Valve The pulmonic valve is not well visualized. Great Vessels Normal sized aortic root. The pulmonary artery is normal size. Inferior vena cava collapse with respiration. Pericardium/Pleural No pericardial effusion. MMode/2D Measurements & Calculations LVIDd: 3.0 cm IVSd: 1.0 cm Ao root diam: 2.6 cm LVIDs: 1.6 cm LVPWd: 0.93 cm RVDd: 3.6 cm FS: 46.7 % LAV(MOD-bp): 19.3 ml LVAd ap4: 18.4 cm2 SV(MOD-sp4): 30.5 ml LAV(MOD-bp) Indexed: 11.3 ml/m2 LVLd ap4: 6.8 cm SI(MOD-sp4): 17.8 ml/m2 LAV(MOD-sp2): 21.7 ml EDV(MOD-sp4): 42.1 ml LAV(MOD-sp4): 16.7 ml EDV(sp4-el): 42.7 ml LVAs ap4: 8.6 cm2 LVLs ap4: 5.4 cm ESV(MOD-sp4): 11.6 ml ESV(sp4-el): 11.7 ml EF(MOD-sp4): 72.4 % EF(sp4-el): 72.6 % SV(sp4-el): 31.0 ml LA A4 area: 9.5 cm2 LA dimension(2D): 3.5 cm RA A4 area: 8.5 cm2 TAPSE: 2.1 cm Time Measurements MV dec time: 0.26 sec Doppler Measurements & Calculations MV E max mikie: 64.4 cm/sec Lat Peak E' Mikie: 10.1 cm/sec Med Peak E' Mikie: 7.7 cm/sec MV A max mikie: 85.0 cm/sec E/E' lat: 6.4 E/E' med: 8.4 MV E/A: 0.76 Ao V2 max: 171.5 cm/sec LV V1 max: 128.6 cm/sec MV dec slope: 249.7 cm/sec2 Ao max P.8 mmHg LV V1 max P.6 mmHg Ao V2 mean: 120.3 cm/sec LV V1 mean P.4 mmHg Ao mean P.5 mmHg LV V1 mean: 100.5 cm/sec Ao V2 VTI: 36.1 cm LV V1 VTI: 30.4 cm AV (velocity ratio): 0.84 PA V2 max: 98.7 cm/sec ECHO/Echo Complete Interpretation Summary Normal LV size. Left ventricular systolic function is normal. The left ventricular ejection fraction is 60 %. Stage 1 diastolic dysfunction. Ordering Physician: Radha Ramirez Referring Physician: Lilly Seth Performed By: Sadie Kessler, DULCE, RVT
[2024-12-06] MEDS: Atorvastatin Calcium 80 MG Tablet PO (21:54)
[2024-12-06] MEDS: Cephalexin 250 MG Capsule PO (21:54)
[2024-12-06] MEDS: MELATONIN 3 MG TABLET PO (21:54)
[2024-12-07 01:00] VITALS: BP 137/76; PULSE 91; RESP 16; TEMP 36.2; O2SAT 96
[2024-12-07 04:05] VITALS: BP 149/75; PULSE 88; RESP 18; TEMP 36.8; O2SAT 100
[2024-12-07] MEDS: Levothyroxine 125 MCG Tablet PO (04:06)
[2024-12-07] MEDS: DiphenhydrAMINE 50 MG/ML Syringe 25 MG IV (04:06)
[2024-12-07] MEDS: 0.9% Saline Lock 10 ML Syringe IV (04:07)
[2024-12-07 04:31] LABS: Absolute Lymphocyte Count 1.98 X10^3/uL (0.83-4.51); Absolute Neutrophil Count 3.6 X10^3/uL (2.0-7.7); Basophil# 0.04 X10^3/uL; Basophil% 0.7 % (0-1); Eosinophil# 0.06 X10^3/uL; Hematocrit 42.5 % (37-47); Lymphocyte # 1.98 X10^3/ul (0.83-4.51); Lymphocyte % 32.7 % (19-41); Mean Corp Hgb Conc 32.9 g/dL (32-36); Mean Platelet Vol. 10.7 fl (6.2-12.0); Monocyte# 0.39 X10^3/uL; Monocyte% 6.4 % (0-10); NRBC Flagged by Analyzer 0 % (0-5); Neutrophil # 3.57 X10^3/uL (2.7-7.7); Platelet Count 187 K/mm3 (150-450); RBC Distribution Width CV 14.6 % (11.6-14.6); RBC Distribution Width SD 50.5 fl (35.1-43.9); Red Blood Count 4.52 M/mm3 (4.2-5.4); White Blood Count 6.1 K/mm3 (4.4-11.0)
[2024-12-07 04:57] LABS: Anion Gap 11 (5-15); BUN 11 mg/dL (4-19); BUN/Creat Ratio 19.3 RATIO (10-20); Calcium,Total 8.6 mg/dL (7.6-11.0); Chloride 102 mmol/L (98-108); Creatinine, Serum 0.59 mg/dL (0.70-1.20); EST Glomerular Filtration Rate 98 (>60); Glucose 154 mg/dL (70-99); Potassium 3.4 mmol/L (3.3-5.1); Sodium Level 139 mmol/L (133-145); Thyroid Stim Hormone (TSH) 0.587 uIU/mL (0.300-4.200)
[2024-12-07 05:23] LABS: Cholesterol 167 mg/dL (<=200); High Density Lipoprotein 51 mg/dL; Low Density Lipoprotein Calc. 75 mg/dL; Triglycerides 201 mg/dL; Very Low Density Lipoprotein 40 mg/dL (5-40); cholesterol:hdl ratio screen 3.25
[2024-12-07 08:00] VITALS: BP 131/74; PULSE 79; RESP 18; TEMP 36.3; O2SAT 96
[2024-12-07] MEDS: Venlafaxine XR 75 MG Capsule PO (08:11)
[2024-12-07] MEDS: Senna/Docusate Sodium 1 Tablet 2 TABLET PO (08:11)
[2024-12-07] MEDS: Aspirin 81 MG TAB.CHEW PO (08:11)
--- NOTE | 2024-12-07 10:00 | MRI_ITS ---
EXAM: Noncontrast MRA of the brain. CLINICAL HISTORY: Right-sided ptosis. COMPARISON: MRI brain from the same day. TECHNIQUE: Contiguous unenhanced axial MRA images of the brain were obtained. Multi planar reformatted images were created and reviewed. FINDINGS: The basilar and distal vertebral arteries are patent. The distal left vertebral artery is dominant. There is persistent origin of the left posterior cerebral artery. The major components of the posterior circulation are patent. The included distal intra and extracranial internal carotid arteries are patent. No focal aneurysm formation or hemodynamically significant stenosis of the major arterial vascular structures of the [id number]. MRI/MRA Head ONLY without Contrast IMPRESSION: Negative MRA of the brain. Reading Location: [facility]
[2024-12-07] MEDS: Lactobacillis Acidophilus 1 CAP PO (10:46)
[2024-12-07] MEDS: Cholecalciferol (VIT D3) 25 MCG TABLET (1,000 UNITS) 100 MCG PO (10:46)
[2024-12-07] MEDS: Calcium Carbonate 500 MG Tablet PO (10:46)
[2024-12-07 12:00] VITALS: BP 134/71; PULSE 78; RESP 18; TEMP 36.4; O2SAT 98
--- NOTE | 2024-12-07 13:33 | NEURO.CONS ---
Assessment and Plan: Neuro Assessment/Plan 69 y/o woman with h/o postop DVT X 2 no longer on anticoagulation, anxiety, hypothyroidism, hypertension p/w difficulty in vision in right eye. 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 Does note headache posterior to right eye. In ED patient vitally stable and lab workup unremarkable, CTA head and neck with no acute process and vitals and lab workup fairly benign. LDL-75. TTE-EF-60%. Today, she reports feeling back to normal with normal vision. NIHSS-0 Diagnosis:3rd n. Palsy, right, Ischemic vs brainstem lesion or inflammatory Plan: Follow up MRI Brain w/ thin slices through brainstem. Check A1c, ESR, CRP. ASA and statin. Follow up with ophthalmology I personally attended this patient and spent a total time of 70 minutes evaluating this patient including clinical assessment, review of chart, medical history imaging, and determining appropriate treatment and workup. HPI Consult Data Date of Consult: 12/08/24 HPI Narrative HPI Narrative: 69 y/o woman with h/o postop DVT X 2 no longer on anticoagulation, anxiety, hypothyroidism, hypertension p/w difficulty in vision in right eye. 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 Does note headache posterior to right eye. In ED patient vitally stable and lab workup unremarkable, CTA head and neck with no acute process and vitals and lab workup fairly benign. Hospitalist contacted for admission for CVA rule out and MRI. Patient evaluated at bedside and reports that she had been having little bit of a headache behind both eyes that has now just been behind her right eye, notes that this morning it was harder to open her right eye compared to her left and that when she glances down into the right she has double vision though this is somewhat improving. [place] a little lightheaded briefly yesterday but this is not recurred. ROS otherwise negative. Today, she reports feeling back to normal with normal vision. NIHSS-0 [facility] Medical History Abnormal biliary HIDA scan Osteoporosis Tear of left gluteus medius tendon History of fracture of right ankle Internal hemorrhoid Personal history of colonic polyps Wears glasses Post-menopausal Thyroid disease Back pain History of diverticulitis Non-smoker DVT (deep venous thrombosis) History of stress test History of DVT (deep vein thrombosis) Hypertension COVID-19 History of cyst of breast Osteopenia Hyperlipemia History of basal cell carcinoma Chronic UTI Hot flashes Hyperlipidemia Closed left ankle fracture Home Medications ?Medication ?Instructions ?Recorded ?Last Taken ?Type calcium carbonate (Calcium 600) 600 mg PO DAILY 08/02/20 12/03/24 History cholecalciferol (vitamin D3) 100 100 mcg PO DAILY 08/02/20 12/05/24 History mcg (4,000 unit) capsule lactobacillus combination no.4 3 3,000 mmu cells PO DAILY 03/03/23 12/05/24 History billion cell capsule (Probiotic) venlafaxine 75 mg capsule,extended 75 mg PO DAILY #90 caps 12/16/23 12/05/24 Rx release 24 hr meloxicam 15 mg tablet 15 mg PO QDAY PRN pain 03/24/24 05/14/24 History losartan 50 mg tablet 50 mg PO DAILY #90 tabs 03/29/24 12/05/24 Rx d-mannose 500 mg capsule 500 mg PO DAILY 06/04/24 12/05/24 History denosumab 60 mg/mL subcutaneous 60 mg subcut [id number] #1 mL 09/23/24 10/25/24 Rx syringe (Prolia) levothyroxine 125 mcg tablet 125 mcg PO DAILY #30 tabs 09/27/24 12/06/24 Rx cephalexin 250 mg capsule 250 mg PO QHS 12/06/24 12/05/24 History aspirin 81 mg chewable tablet 81 mg PO BREAKFAST #0 tabs 12/07/24 Unknown Rx atorvastatin 80 mg tablet 80 mg PO QHS #30 tabs 12/07/24 Unknown Rx Allergy/AdvReac Type Severity Reaction Status Date / Time nitrofurantoin (From Allergy Other Verified 12/06/24 12:13 Macrobid) nitrofurantoin Allergy Hives Verified 12/06/24 12:13 macrocrystalline (From Macrodantin) Family History Mother Heart disease Father Heart disease Myocardial infarction Brother Prostate cancer Cancer Other Depression Hyperlipemia Hypertension Surgical History S/P cholecystectomy Hx of colonoscopy History of surgery on left wrist History of hemorrhoidectomy Hx of colonoscopy Status post total thyroidectomy Internal hemorrhoid History of tonsillectomy and adenoidectomy left ankle fracture S/P vaginal hysterectomy Social History household members: none current occupational status: retired current occupation: [employer] Smoking Status: Never smoker alcohol intake: never substance use type: does not use caffeine: Yes what type of physical activity do you participate in: walking and weight training frequency: 3-4 times per week seatbelt use: always do you feel safe at home: Yes additional social history: Patient is retired does not take aspirin or Ibuprofen Vital Signs Vital Signs Vital Signs: 12/06/24 14:00 12/06/24 15:00 12/06/24 16:00 Temperature Temperature Source Pulse Rate 80 87 92 Pulse Strength Respiratory Rate 15 17 16 Respiratory Effort Respiratory Depth Respiratory Pattern Blood Pressure 122/79 H 131/80 H 129/76 H Blood Pressure Mean 93 97 93 Blood Pressure Source Blood Pressure Position Blood Pressure Location Pulse Ox 97 97 Oxygen Delivery Method Room Air 12/06/24 17:00 12/06/24 18:02 12/06/24 19:00 Temperature Temperature Source Pulse Rate 85 79 85 Pulse Strength Respiratory Rate 16 16 13 Respiratory Effort Respiratory Depth Respiratory Pattern Blood Pressure 131/71 H 137/84 H 148/76 H Blood Pressure Mean 91 101 100 Blood Pressure Source Blood Pressure Position Blood Pressure Location Pulse Ox 94 94 98 Oxygen Delivery Method Room Air Room Air 12/06/24 19:38 12/06/24 21:03 12/06/24 21:29 Temperature 98 F 97.7 F L Temperature Source Temporal Pulse Rate 80 106 H Pulse Strength Normal (2+) Respiratory Rate 14 18 Respiratory Effort Respiratory Depth Respiratory Pattern Blood Pressure 132/85 H 137/77 H Blood Pressure Mean 100 97 Blood Pressure Source Monitor Blood Pressure Position Semi-Fowlers Blood Pressure Location Right Arm Pulse Ox 100 100 Oxygen Delivery Method Room Air 12/06/24 21:29 12/07/24 01:00 12/07/24 01:00 Temperature 97.2 F L Temperature Source Temporal Pulse Rate 91 Pulse Strength Respiratory Rate 16 Respiratory Effort Normal Non-Labored Normal Non-Labored Respiratory Depth Normal Normal Respiratory Pattern Normal Normal Blood Pressure 137/76 H Blood Pressure Mean 96 Blood Pressure Source Monitor Blood Pressure Position Supine Blood Pressure Location Right Arm Pulse Ox 96 Oxygen Delivery Method Room Air Room Air Room Air 12/07/24 04:05 12/07/24 07:48 12/07/24 07:56 Temperature 98.2 F Temperature Source Temporal Pulse Rate 88 Pulse Strength Normal (2+) Respiratory Rate 18 Respiratory Effort Respiratory Depth Respiratory Pattern Blood Pressure 149/75 H Blood Pressure Mean 99 Blood Pressure Source Monitor Blood Pressure Position Semi-Fowlers Blood Pressure Location Right Arm Pulse Ox 100 Oxygen Delivery Method Room Air Room Air 12/07/24 08:00 12/07/24 08:02 Temperature 97.4 F L Temperature Source Temporal Pulse Rate 79 Pulse Strength Respiratory Rate 18 Respiratory Effort Normal Non-Labored Respiratory Depth Normal Respiratory Pattern Normal Blood Pressure 131/74 H Blood Pressure Mean 93 Blood Pressure Source Monitor Blood Pressure Position Semi-Fowlers Blood Pressure Location Right Arm Pulse Ox 96 Oxygen Delivery Method Room Air Room Air Weight Weight: 70.3 kg Body Mass Index (BMI) 27.4 EEG Results Procedure Details EEG Procedure Details: EMMY CRUZ is a 69 year old F with a past medical history of , who presents for evaluation of Electroencephalogram on DATE at TIME NIHSS NIHSS Nursing Documentation NIHSS Nursing Documentation: NIHSS: Ischemic Stroke/TIA Start: 12/06/24 20:45 Text: For PCU Patients: NIH and Neuro Check every 4 Status: Active hours, PRN and with change in RN caregiver. Freq: [id number] Protocol: Activity Type Activity Date Activity User E-sign Co-sign Detail Recorded Client Recorded Date Recorded By Document 12/07/24 08:00 [id number] 12/07/24 07:59 8 12/07/24 08:00 NIH Stroke Scale [NIHSS] A score of 0 is normal or asymptomatic . Total possible score is 42. Inpatient: RN or Physician to activate a stroke alert for onset of new stroke symptoms or with NIHSS increase >/= 3 points. Following change in neurological status, NIHSS will be performed per physician order or more frequently PRN. -1a. Level of Consciousness Alert; keenly responsive -1b. LOC Questions Answers BOTH questions correctly. -1c. LOC Commands Performs both tasks correctly . -2. Best Gaze Normal -3. Visual No visual loss -4. Facial Palsy Normal symmetrical movements -5a. Left Arm No drift; arm holds 90 (or 45 ) degrees for full 10 seconds -5b. Right Arm No drift; arm holds 90 (or 45 ) degrees for full 10 seconds -6a. Left Leg No drift; leg holds 30-degree position for full 5 seconds -6b. Right Leg No drift; leg holds 30-degree position for full 5 seconds -7. Limb Ataxia Absent -8. Sensory Normal; no sensory loss -9. Best Language No aphasia; normal -10. Dysarthria Normal -11. Extinction and Inattention No abnormality -Total 0 Query Text:A score of 0 is normal or asymptomatic. Total possible score is 42 . ED: Notify Physician for NIHSS increase by > / = 3 points. Inpatient: RN or Physician to activate a stroke alert for NIHSS increase of > / = 3 points. Coma Scale [Assess] -Eye Opening Spontaneous -Motor Obeys Commands -Verbal Oriented [Total] -Coma Scale Total 15 NIHSS 1a. Level of Consciousness: Alert; keenly responsive 1b. LOC Questions: Answers BOTH questions correctly. 1c. LOC Commands: Performs both tasks correctly. 2. Best Gaze: Normal 3. Visual: No visual loss 4. Facial Palsy: Normal symmetrical movements 5a. Left Arm: No drift; arm holds 90 (or 45) degrees for full 10 seconds 5b. Right Arm: No drift; arm holds 90 (or 45) degrees for full 10 seconds 6a. Left Leg: No drift; leg holds 30-degree position for full 5 seconds 6b. Right Leg: No drift; leg holds 30-degree position for full 5 seconds 7. Limb Ataxia: Absent 8. Sensory: Normal; no sensory loss 9. Best Language: No aphasia; normal 10. Dysarthria: Normal 11. Extinction and Inattention: No abnormality Total: 0 Physical Exam Narrative General: The patient appears nutritionally appropriate, well-groomed, and appears comfortable in no acute distress. Mental Status:? The patient?s mental status was normal including orientation.? Language was intact.? Cranial nerves:? Visual rosales full, and extra-ocular motion was intact. Symmetric face. Motor: Normal strength in all extremities. Sensation: Intact to touch in all extremities.? Coordination:? Bilateral finger to nose was normal.? There was no dysmetria. Gait:? deferred. Lab / Micro Data 12/07/24 04:19 12/07/24 04:19 Labs: Laboratory Results - last 24 hr 12/07/24 04:19: WBC 6.1, RBC 4.52, Hgb 14.0, Hct 42.5, MCV 94.0, MCH 31.0, MCHC 32.9, RDW Std Deviation 50.5 H, RDW Coeff of Keiry 14.6, Plt Count 187, MPV 10.7, Immature Gran % (Auto) 0.200, Neut % (Auto) 59.0, Lymph % (Auto) 32.7, [place]ley % (Auto) 6.4, Eos % (Auto) 1.0, Baso % (Auto) 0.7, Absolute Neuts (auto) 3.6, Absolute Lymphs (auto) 1.98, Nucleated RBC % 0, Sodium 139, Potassium 3.4, Chloride 102, Carbon Dioxide 26.0, Anion Gap 11, BUN 11, Creatinine 0.59 L, Estim Creat Clear Calc 62.40, Est GFR (MDRD) Non-Af 98, BUN/Creatinine Ratio 19.3, Glucose 154 H, Calcium 8.6, Triglycerides 201 H, Cholesterol 167, LDL Cholesterol, Calc 75, VLDL Cholesterol 40, HDL Cholesterol 51, Cholesterol/HDL Ratio 3.25, TSH 0.587 Imaging Radiology Impression Head/Neck CTA 12/06/24 15:00 IMPRESSION: 1. No acute intracranial hemorrhage or mass effect seen on noncontrast CT head. 2. No large vessel occlusion, aneurysm or AVM. 3. Mild white matter disease, compatible with patient age. Reading Location: [facility] Echocardiogram 12/06/24 20:33 Interpretation Summary Normal LV size. Left ventricular systolic function is normal. The left ventricular ejection fraction is 60 %. Stage 1 diastolic dysfunction. Ordering Physician: Radha Ramirez Referring Physician: Lilly Seth Performed By: Sadie Kessler, DULCE, RVT Active Medications Active Medications Active Medications: Current Medications Generic Name Dose Route Start Last Admin Trade Name Freq PRN Reason Stop Dose Admin Acetaminophen 650 mg 12/06/24 20:45 Acetaminophen 325 Mg Tablet PO Q6H PRN PRN Pain 1-10 Or Fever >100.7 Albuterol Sulfate 2.5 mg 12/06/24 20:45 Albuterol 2.5 Mg/3 Ml Vial.Neb. INHALATION Q2H PRN PRN SOB &/OR WHEEZING Aspirin 81 mg 12/07/24 08:00 12/07/24 08:11 Aspirin 81 Mg Tab.Chew PO 81 mg BREAKFAST HERBERT Administration Atorvastatin Calcium 80 mg 12/06/24 22:00 12/06/24 21:54 Atorvastatin Calcium 80 Mg Tablet PO 80 mg QHS HERBERT Administration Calcium Carbonate 500 mg 12/07/24 10:00 12/07/24 10:46 Calcium Carbonate 500 Mg Tablet PO 500 mg DAILY HERBERT Administration Cephalexin 250 mg 12/06/24 22:00 12/06/24 21:54 Cephalexin 250 Mg Capsule PO 250 mg QHS HERBERT Administration Cholecalciferol 100 mcg 12/07/24 10:00 12/07/24 10:46 Cholecalciferol (Vit D3) 25 Mcg Tablet (1,000 Units) PO 100 mcg DAILY HERBERT Administration Hydralazine HCl 5 mg 12/06/24 20:45 Hydralazine 20 Mg/Ml Vial IV 12/07/24 20:45 Q30M PRN maintain BP parameters with HR <60 Labetalol HCl 10 - 20 mg 12/06/24 20:45 Labetalol 20mg/4ml Syringe IV 12/07/24 20:45 Q10M PRN PRN maintain BP parameters with HR >/=60 Levothyroxine Sodium 125 mcg 12/07/24 06:00 12/07/24 04:06 Levothyroxine 125 Mcg Tablet PO 125 mcg DAILY@0600 HERBERT Administration Melatonin 3 mg 12/06/24 20:45 12/06/24 21:54 Melatonin 3 Mg Tablet PO 3 mg QHS PRN PRN Administration INSOMNIA Ondansetron HCl 4 mg 12/06/24 20:45 Ondansetron 4 Mg/2 Ml Vial IV Q8H PRN PRN NAUSEA/VOMITING Senna/Docusate Sodium 2 tablet 12/06/24 20:45 12/07/24 08:11 Senna/Docusate Sodium 1 Tablet PO 2 tablet BID PRN PRN Administration Constipation Sodium Chloride 10 - 40 ml 12/06/24 20:52 12/07/24 04:07 0.9% Saline Lock 10 Ml Syringe IV 20 ml UD PRN Administration SALINE FLUSH Venlafaxine HCl 75 mg 12/07/24 10:00 12/07/24 08:11 Venlafaxine Xr 75 Mg Capsule PO 75 mg DAILY HERBERT Administration
--- NOTE | 2024-12-07 13:39 | MRI_ITS ---
EXAM: MRI of the brain without and with intravenous contrast. CLINICAL HISTORY: Right-sided ptosis COMPARISON: CTA brain 12/06/2024. TECHNIQUE: Multiplanar, multisequence MRI images of the brain were obtained without and with intravenous contrast. 14 cc Clariscan IV contrast was administered. FINDINGS: Bones of the calvarium are intact. Included upper cervical spinal cord is unremarkable. The sella and parasellar structures show no specific abnormality. Included extracranial soft tissues show no specific abnormality. Major basilar intracranial flow voids are present. Paranasal sinuses and mastoid air cells clear. Prominence of the cortical sulci and ventricular system, compatible with mild brain parenchymal atrophy. Basilar cisterns are clear. There are no areas of restricted diffusion. There are moderate scattered patchy areas of increased T2/FLAIR signal involving the deep, subcortical, and periventricular white matter structures of the cerebral hemispheres. On postcontrast images, no areas of abnormal brain parenchymal enhancement. On dedicated images through the orbits, the globes and extra-ocular muscles, as well as the optic nerves, are symmetric. No asymmetric enlargement of the optic nerves or extraocular muscles. No intraorbital mass demonstrated. There is nonspecific 4 mm nodularity of the pituitary infundibulum. MRI/Brain W/WO Contrast IMPRESSION: Mild brain parenchymal atrophy. No acute intracranial abnormality or abnormal brain parenchymal enhancement. Moderate patchy white matter hyperintensities in the cerebral hemispheres, whic h may be on the basis of chronic small-vessel ischemic disease. No focal MRI abnormality of the orbits. Nonspecific 4 mm nodularity of the pituitary infundibulum. This exerts no mass effect on the optic chiasm. Reading Location[facility]
[2024-12-07 14:00] VITALS: BP 129/72; PULSE 71; RESP 18; TEMP 36.5; O2SAT 96
--- NOTE | 2024-12-07 16:27 | CASEMGMT ---
MARIIA CM in to complete MONGE form with patient. RN SAL explained MONGE form to patient, patient voiced understanding. Patient signed MONGE form and filed in chart. Patient provided with copy of signed MONGE form. Patient had no further questions or concerns.
[2024-12-07 18:49] VITALS: BMI 27.4
--- NOTE | 2024-12-07 20:09 | PCM.PN.HOSP ---
Reason for Visit Reason for Visit: Right eye ptosis/diplopia Subjective Subjective Symptoms quickly resolved. She never had anything like this previously. Anxious to go home but awaiting MRI results. Discussed echocardiogram and probably discharge with aspirin and statin at a higher dose unless MRI is positive for stroke in which case we would add Plavix for 21 days. Objective Data Objective Data Vital Signs: Vital Signs Temp Pulse Resp BP Pulse Ox O2 Del Method 97.7 F L 71 18 129/72 H 96 Room Air 12/07/24 14:00 12/07/24 14:00 12/07/24 14:00 12/07/24 14:00 12/07/24 14:00 12/07/24 18:45 Oxygen Delivery Method Room Air Weight: 70.3 kg Body Mass Index (BMI) 27.4 Intake & Output: Intake and Output for Last 24 Hours 12/05/24 12/06/24 12/07/24 23:59 23:59 23:59 Intake Total 1000 / 1120 720 / 720 Balance 1000 / 1120 720 / 720 Lab / Micro Data 12/07/24 04:19 12/07/24 04:19 Labs: Laboratory Results - last 24 hr 12/07/24 04:19: WBC 6.1, RBC 4.52, Hgb 14.0, Hct 42.5, MCV 94.0, MCH 31.0, MCHC 32.9, RDW Std Deviation 50.5 H, RDW Coeff of Keiry 14.6, Plt Count 187, MPV 10.7, Immature Gran % (Auto) 0.200, Neut % (Auto) 59.0, Lymph % (Auto) 32.7, [place] % (Auto) 6.4, Eos % (Auto) 1.0, Baso % (Auto) 0.7, Absolute Neuts (auto) 3.6, Absolute Lymphs (auto) 1.98, Nucleated RBC % 0, Sodium 139, Potassium 3.4, Chloride 102, Carbon Dioxide 26.0, Anion Gap 11, BUN 11, Creatinine 0.59 L, Estim Creat Clear Calc 62.40, Est GFR (MDRD) Non-Af 98, BUN/Creatinine Ratio 19.3, Glucose 154 H, Calcium 8.6, Triglycerides 201 H, Cholesterol 167, LDL Cholesterol, Calc 75, VLDL Cholesterol 40, HDL Cholesterol 51, Cholesterol/HDL Ratio 3.25, TSH 0.587 Radiography Diagnostic Testing: Radiology Impression Echocardiogram 12/06/24 20:33 Interpretation Summary Normal LV size. Left ventricular systolic function is normal. The left ventricular ejection fraction is 60 %. Stage 1 diastolic dysfunction. Ordering Physician: Radha Ramirez Referring Physician: Lilly Seth Performed By: Sadie Kessler, DULCE, RVT Physical Exam Const alert, oriented x3, no apparent distress, average body habitus, healthy appearing and well nourished Constitutional Narrative: Upper middle-aged, white female, sitting up in bed, appears comfortable, nontoxic, daughter at bedside HEENT head/scalp atraumatic and moist oral mucous membranes Head and Scalp: normocephalic Eyes EOMs intact bilaterally and conjunctivae normal Eyes Narrative: No scleral icterus Resp normal respiratory effort, no retractions, no use of accessory muscles and clear to auscultation bilaterally Auscultation: Negative for rales, rhonchi or wheezes Cardio regular rate, regular rhythm, S1 normal heart sound, S2 normal heart sound, no murmurs, no rub, no gallops and no clicks GI normal to inspection, nondistended, normoactive bowel sounds and soft to palpation Extremity no clubbing, cyanosis or edema Extremity Narrative: 2+ pedal and radial pulses Neuro oriented x3, CN's II-XII intact bilaterally, moves all extremities and no focal motor deficits Speech: speech normal Psych affect normal Psych Narrative: Very pleasant, interacts appropriately, eye contact is good Assessment & Plan Assessment/Plan (1) 3rd cranial nerve palsy: (2) Neurologic abnormality: PLAN: Plan Right eye ptosis/diplopia -NIH was 1 on presentation and now has been 0 several times -Suspect TIA -Continue high intensity dose statin to 80 mg -Continue aspirin 81 mg -If stroke present on MRI will add Plavix 75 mg for 21 days -Home antihypertensives are on hold to allow for permissive hypertension for now -Echocardiogram done and showed EF of 60% with stage I diastolic dysfunction, negative bubble study was otherwise unremarkable -MRI and MRA are pending did have to transition from MRI with out contrast MRI with and without pertinent neurology's recommendations -LDL cholesterol is at 75 on her home dose of simvastatin 20 mg -Hemoglobin A1c was 4.9 -PT/OT evaluation without any concerns -Plan for discharge home as soon as we can assure MRI is negative for stroke and we do not need to add Plavix -Neurology has evaluated the patient and is okay with discharge once MRI results have been obtained Essential hypertension/hyperlipidemia -Restart home losartan at discharge -Hold home statin and utilize atorvastatin 80 mg nightly Hypothyroidism -Continue home levothyroxine Recurrent UTI -Follows with urology -On Keflex 250 nightly prescribed by urology for chronic suppression History of DVT -Developed postoperatively so provoked -Not chronically anticoagulated Osteoporosis -Is on outpatient Prolia -Continue vitamin D and calcium supplementation DVT prophylaxis -Lovenox subcu daily CODE STATUS -Full code Charges/Coding Visit Charges Inpatient E&M: 75220 Subs Hosp L2
[2024-12-07 20:41] VITALS: BP 132/72; PULSE 84; RESP 18; TEMP 37.1; O2SAT 95
[2024-12-07] MEDS: Cephalexin 250 MG Capsule PO (20:43)
[2024-12-07] MEDS: Atorvastatin Calcium 80 MG Tablet PO (20:43)
[2024-12-07 20:55] LABS: Hemoglobin A1c 4.9 % (<=5.6)
[2024-12-07] MEDS: DiphenhydrAMINE 25 MG Capsule PO (22:21)
[2024-12-07 22:50] VITALS: BMI 27.4
[2024-12-08 03:00] VITALS: BP 137/75; PULSE 91; RESP 18; TEMP 36.6; O2SAT 94
[2024-12-08] MEDS: Levothyroxine 125 MCG Tablet PO (05:05)
--- NOTE | 2024-12-08 06:45 | PCM.DC.SUM ---
Providers Date of Admission: 12/06/24 Date of Discharge: 12/08/24 Primary Care Physician: Dr. Amelia Seth MD Consultations 12/06/24 20:45 Consult: Tele-Neurology Routine Consulting Provider: [facility] Reason for Consult: Acute Ischemic Stroke/TIA EMERGENT Consult: No MD Notified: Yes Date Notified: 12/06/24 Time Notified: 22:47 Method of Notification: Answering Service Nursing Unit Staff Notify [facility] of Tele-Neurology Consult: Yes Reason For Visit: CVA RULE OUT Diagnosis Discharge Diagnosis (1) Neurologic abnormality: Status: Acute Code(s): R29.818 - Other symptoms and signs involving the nervous system Medications at Discharge Home Medications calcium carbonate (Calcium 600) 600 mg PO DAILY 08/02/20 cholecalciferol (vitamin D3) 100 mcg (4,000 unit) capsule 100 mcg PO DAILY 08/02/20 lactobacillus combination no.4 3 billion cell capsule (Probiotic) 3,000 mmu cells PO DAILY 03/03/23 venlafaxine 75 mg capsule,extended release 24 hr 75 mg PO DAILY #90 caps 12/16/23 meloxicam 15 mg tablet 15 mg PO QDAY PRN pain 03/24/24 losartan 50 mg tablet 50 mg PO DAILY #90 tabs 03/29/24 d-mannose 500 mg capsule 500 mg PO DAILY 06/04/24 denosumab 60 mg/mL subcutaneous syringe (Prolia) 60 mg subcut [id number] #1 mL 09/23/24 levothyroxine 125 mcg tablet 125 mcg PO DAILY #30 tabs 09/27/24 cephalexin 250 mg capsule 250 mg PO QHS 12/06/24 aspirin 81 mg chewable tablet 81 mg PO BREAKFAST #0 tabs 12/07/24 atorvastatin 80 mg tablet 80 mg PO QHS #30 tabs 12/07/24 Hospital Course Operations None Procedures 2-D Echocardiogram and - (CT brain/CTA head and neck/MRI brain/MRA head) Summary of Care Provided Minutes Spent on Discharge: 38 Hospital Course: Mrs. Michael is a 69-year-old white female who presents emergency department [facility] [place] on 12/06/2024 with a chief complaint of right eye visual changes including diplopia and right ptosis. She went to bed prior to presentation at 2100 and woke up this morning with ptosis in her right eye. She reported her pupil is dilated when compared to the left and she had diplopia when looking down. (Eye doctor who sent her into the emergency department for further evaluation. She did note a headache in the posterior right eye at the time of presentation. Vital signs on presentation showed temperature of 97.4, heart rate 86, respiratory 18, initial blood pressure was 182/88 with repeat of 132/65, pulse ox was 97% on room air. CBC was unremarkable. Chemistry was unremarkable. CT of the brain was unremarkable. CTA of the head and neck was unremarkable with any LVO aneurysm or AVMs. No significant stenosis was noted either. Her initial NIH was 1 for partial gaze palsy. She was admitted for stroke workup and per ophthalmology MRA was ordered along with MRI. Her NIH resolved quickly after admission. Echocardiogram was unremarkable and showed an EF of 60% with stage I diastolic dysfunction. Bubble study was negative. Hemoglobin A1c was 4.9. LDL was 75. MRI of the brain with and without contrast showed mild brain parenchymal atrophy with no acute intracranial abnormality, patchy moderate white matter hyperintensities consistent with chronic ischemic small vessel changes and a nonspecific 4 mm nodularity of the pituitary infundibulum. MRA of the head was unremarkable. Given noted given imaging it suspected that this was probably ischemic related to TIA. Per discussion with neurology who evaluated the patient in house recommended ongoing aspirin use and transitioning her simvastatin to atorvastatin 80 mg daily with outpatient neuro follow-up after discharge. Symptoms were completely resolved at the time of discharge. She was able to discharge home in stable condition on 12/08/2024. Antihypertensives were restarted at discharge and prescriptions for aspirin and statin were sent to local pharmacy. Delay in discharge from the to the was related to untimely results of MRI. Discharge diagnoses: TIA Right ptosis-resolved Diplopia-resolved Anxiety Depression Hypothyroidism Essential hypertension History of provoked DVT Frequent UTI on chronic suppression Vitamin D deficiency Transaminitis History of diverticulitis Physical Exam Const alert, oriented x3, no apparent distress, no limitations, healthy appearing and well nourished; Negative for average body habitus Constitutional Narrative: Upper middle-aged white female sitting up in bed, watching television, appears comfortable, nontoxic General Appearance: cooperative, comfortable, well kempt and well developed Exam Limitations: no limitations Nutritional Appearance: overweight HEENT normocephalic, head/scalp atraumatic, hearing grossly normal bilaterally and moist oral mucous membranes HEENT Narrative: Mallampati 2 Eyes EOMs intact bilaterally Eyes Narrative: No scleral icterus Neck supple Neck Narrative: trachea midline Resp normal respiratory effort, no retractions, no use of accessory muscles and clear to auscultation bilaterally Auscultation: Negative for rales, rhonchi or wheezes Cardio regular rate, regular rhythm, S1 normal heart sound, S2 normal heart sound, no murmurs, no rub, no gallops and no clicks GI normal to inspection, nondistended, normoactive bowel sounds, soft to palpation and non-tender Extremity no clubbing, cyanosis or edema Extremity Narrative: 2+ pedal and radial pulses Skin no jaundice, no petechiae and no mottling Neuro oriented x3, moves all extremities and no focal motor deficits Speech: speech normal Psych affect normal Psych Narrative: Extremely pleasant, interacts appropriately Weight / BMI Weight Weight: 70.3 kg Body Mass Index (BMI) 27.4 ABG / Lab / Microbiology Data 12/07/24 04:19 12/07/24 04:19 Laboratory: Laboratory Results - last 24 hr 12/07/24 04:19: Hemoglobin A1c 4.9 L Radiography Diagnostic Testing: Radiology Impression Echocardiogram 12/06/24 20:33 Interpretation Summary Normal LV size. Left ventricular systolic function is normal. The left ventricular ejection fraction is 60 %. Stage 1 diastolic dysfunction. Ordering Physician: Radha Ramirez Referring Physician: Lilly Seth Performed By: Sadie Kessler, ERNACS, RVT Head MRA 12/07/24 10:00 IMPRESSION: Negative MRA of the brain. Reading Location: [facility] Brain MRI 12/07/24 13:39 IMPRESSION: Mild brain parenchymal atrophy. No acute intracranial abnormality or abnormal brain parenchymal enhancement. Moderate patchy white matter hyperintensities in the cerebral hemispheres, which may be on the basis of chronic small-vessel ischemic disease. No focal MRI abnormality of the orbits. Nonspecific 4 mm nodularity of the pituitary infundibulum. This exerts no mass effect on the optic chiasm. [facility] Instructions Discharge Diet: Low fat / Low cholesterol DC O2, CPAP, BIPAP Needs Home O2 Discharge instructions: No Meaningful Use Info Meaningful Use Meaningful Use Diagnoses (Choose all that apply): None applicable Ischemic Stroke Statin Dosing Therapy Reference: STATIN DOSE THERAPY REFERENCE: * Patients > 75 years receive moderate or high dose statin therapy. * Patients 75 years or YOUNGER should receive HIGH intensity statin dose unless contraindicated. You will be required to document reason for non-treatment if statin daily dose does not meet guidelines. HIGH DOSE STATIN THERAPY DAILY Atorvastatin > than or = to 40 mg Rosuvastatin > than or = to 20 mg Amlodipine + Atorvastatin > than or = to 2.5/40 mg Ezetimibe + Simvastatin 10/80 mg Simvastatin 80mg Discharge Plan Admission Admit Date/Time: 12/06/24 19:50 Primary Reason for Your Visit: Right eye visual changes/ptosis right eye Attending Provider: Kriss Huston Primary Care Provider: Amelia Seth Consulting Providers: Otto Vincent; Drew Carter; Tiesha Sandhu; Daphne Forrester; Lilly Monroe; Hang Peterson; Christi Fregoso; Constantine Ureña; Gagandeep Judd; Jim Bolden; Litzy Chua; Javon Conroy; Gissel Nation; Enzo Waddell; Hayley Lund Flaco; Lee Ross; Patricia Kohli; Danilo Parr; Suzanna Huston; Becki García; Radha Ramirez Discharge Orders/Prescriptions Prescriptions: New atorvastatin 80 mg Tablet 80 mg PO QHS Qty: 30 1RF aspirin 81 mg Tablet,Chewable 81 mg PO BREAKFAST Qty: 0 11RF Continued calcium carbonate [Calcium 600] 600 mg calcium (1,500 mg) tablet 600 mg PO DAILY cholecalciferol (vitamin D3) 100 mcg (4,000 unit) capsule 100 mcg PO DAILY venlafaxine 75 mg capsule,extended release 24hr 75 mg PO DAILY Qty: 90 4RF meloxicam 15 mg tablet 15 mg PO QDAY PRN (Reason: pain) Prolia 60 mg/mL syringe 60 mg subcut [id number] Qty: 1 0RF Probiotic 3 billion cell Capsule 3,000 mmu cells PO DAILY Rx Instructions: administer with a meal d-mannose 500 mg capsule 500 mg PO DAILY cephalexin 250 mg capsule 250 mg PO QHS losartan 50 mg tablet 50 mg PO DAILY Qty: 90 3RF levothyroxine 125 mcg tablet 125 mcg PO DAILY Qty: 30 3RF Discontinued simvastatin 20 mg tablet 20 mg PO QHS Qty: 90 1RF Referrals / Follow Up: Amelia Seth MD [Primary Care Provider] - In 1 Week David Stahl MD [Non-Staff -Ordering Privileges] - See Referral Note (3-6 mos) Disposition Disposition (needs filled in before D/C Order can be placed): Home, Self Care Charges/Coding Visit Charges Inpatient E&M: 55570 Disch Hosp >30min
[2024-12-08 07:36] VITALS: O2SAT 93
[2024-12-08] MEDS: Calcium Carbonate 500 MG Tablet PO (08:37)
[2024-12-08] MEDS: Losartan Potassium 50 MG Tablet PO (08:37)
[2024-12-08] MEDS: Aspirin 81 MG TAB.CHEW PO (08:37)
[2024-12-08] MEDS: Lactobacillis Acidophilus 1 CAP PO (08:37)
[2024-12-08] MEDS: Venlafaxine XR 75 MG Capsule PO (08:37)
[2024-12-08] MEDS: Cholecalciferol (VIT D3) 25 MCG TABLET (1,000 UNITS) 100 MCG PO (08:38)
[2024-12-08 09:00] VITALS: BP 114/70; PULSE 88; RESP 16; TEMP 36.6; O2SAT 94
--- NOTE | 2024-12-08 09:17 | CASEMGMT ---
Patient has order for discharge. RN CM in to discuss needs at discharge. Patient denies needs or help at discharge. Patient had no further questions or concerns.
--- NOTE | 2024-12-08 09:30 | CASEMGMT ---
SW did not complete a PHQ 9 as patient did not have a Stroke or TIA. Paty COLEMAN
== END 2024-12-08 07:24 | disposition home or self-care (01) ==
LOC: ED 16:21 → PCU 18:59
PROVIDERS: Emergency Medicine; Admitting Provider Internal Medicine; Emergency Provider Emergency Medicine; PCP Internal Medicine; Visit Provider Internal Medicine
DX: G45.9 Transient cerebral ischemic attack, unspecified (principal); H49.01 Third [oculomotor] nerve palsy, right eye; H57.04 Mydriasis; R51.9 Headache, unspecified; E78.5 Hyperlipidemia, unspecified; H02.401 Unspecified ptosis of right eyelid; E55.9 Vitamin D deficiency, unspecified; H53.2 Diplopia; N39.0 Urinary tract infection, site not specified; E89.0 Postprocedural hypothyroidism; I10 Essential (primary) hypertension; M81.0 Age-related osteoporosis without current pathological fracture; F41.9 Anxiety disorder, unspecified; F32.A Depression, unspecified; Z79.2 Long term (current) use of antibiotics; Z79.82 Long term (current) use of aspirin; Z79.890 Hormone replacement therapy; Z79.899 Other long term (current) drug therapy; Z86.718 Personal history of other venous thrombosis and embolism
CPT/HCPCS: 70496; 70498; 70544; 70553; 80048; 80061; 83036; 84443; 85025; 85610; 85730; 92610; 93005; 93306; 96361; 96374; 96375; 97162; 97166; 97802; 99221; 99285; A9575; Q9967; A4216; G0378

== ENCOUNTER 2024-12-09 15:33 | Emergency (ER) | payer MEDICARE, OTHER, SELFPAY ==
[2024-12-09 15:35] VITALS: BP 85/51; PULSE 82; RESP 16; TEMP 36.8; O2SAT 96; BMI 28.0
--- NOTE | 2024-12-09 15:41 | EX.ED.DYSGE1 ---
HPI History of Present Illness Chief Complaint: Neuro S/Sx [facility] Medical History (Updated 12/09/24 @ 16:[address] Marques Boss, DO) Abnormal biliary HIDA scan Osteoporosis Tear of left gluteus medius tendon History of fracture of right ankle Internal hemorrhoid Personal history of colonic polyps Wears glasses Post-menopausal Thyroid disease Back pain History of diverticulitis Non-smoker DVT (deep venous thrombosis) History of stress test History of DVT (deep vein thrombosis) Hypertension COVID-19 History of cyst of breast Osteopenia Hyperlipemia History of basal cell carcinoma Chronic UTI Hot flashes Hyperlipidemia Closed left ankle fracture Home Medications ?Medication ?Instructions ?Recorded ?Last Taken ?Type calcium carbonate (Calcium 600) 600 mg PO DAILY 08/02/20 12/03/24 History cholecalciferol (vitamin D3) 100 100 mcg PO DAILY 08/02/20 12/05/24 History mcg (4,000 unit) capsule lactobacillus combination no.4 3 3,000 mmu cells PO DAILY 03/03/23 12/05/24 History billion cell capsule (Probiotic) venlafaxine 75 mg capsule,extended 75 mg PO DAILY #90 caps 12/16/23 12/05/24 Rx release 24 hr meloxicam 15 mg tablet 15 mg PO QDAY PRN pain 03/24/24 05/14/24 History losartan 50 mg tablet 50 mg PO DAILY #90 tabs 03/29/24 12/05/24 Rx d-mannose 500 mg capsule 500 mg PO DAILY 06/04/24 12/05/24 History denosumab 60 mg/mL subcutaneous 60 mg subcut [id number] #1 mL 09/23/24 10/25/24 Rx syringe (Prolia) levothyroxine 125 mcg tablet 125 mcg PO DAILY #30 tabs 09/27/24 12/06/24 Rx cephalexin 250 mg capsule 250 mg PO QHS 12/06/24 12/05/24 History aspirin 81 mg chewable tablet 81 mg PO BREAKFAST #0 tabs 12/07/24 Unknown Rx atorvastatin 80 mg tablet 80 mg PO QHS #30 tabs 12/07/24 Unknown Rx Allergy/AdvReac Type Severity Reaction Status Date / Time nitrofurantoin (From Allergy Other Verified 12/06/24 12:13 Macrobid) nitrofurantoin Allergy Hives Verified 12/06/24 12:13 macrocrystalline (From Macrodantin) Family History Mother Heart disease Father Heart disease Myocardial infarction Brother Prostate cancer Cancer Other Depression Hyperlipemia Hypertension Surgical History S/P cholecystectomy Hx of colonoscopy History of surgery on left wrist History of hemorrhoidectomy Hx of colonoscopy Status post total thyroidectomy Internal hemorrhoid History of tonsillectomy and adenoidectomy left ankle fracture S/P vaginal hysterectomy Social History household members: none current occupational status: retired current occupation: [employer] Smoking Status: Never smoker alcohol intake: never substance use type: does not use caffeine: Yes what type of physical activity do you participate in: walking and weight training frequency: 3-4 times per week seatbelt use: always do you feel safe at home: Yes additional social history: Patient is retired does not take aspirin or Ibuprofen EXAM Physical Exam Const Vital Signs: 12/09/24 15:35 12/09/24 16:18 Temperature 98.2 F Temperature Source Temporal Pulse Rate 82 74 Respiratory Rate 16 16 Blood Pressure 85/51 L 132/72 H Blood Pressure Mean 62 92 Pulse Ox 96 98 Oxygen Delivery Method Room Air Room Air [employer] MDM Narrative Medical decision making narrative: HISTORY OF PRESENT ILLNESS: 69-year-old female presents concern for right eye droopiness, dilated pupil. She notes that 7 PM last night. She notes a strain behind right eye. She also endorses photophobia REVIEW OF SYSTEMS: Pertinent positives: Eye pain, photophobia Pertinent negatives: Headache, slurred speech, focal weakness numbness or loss of sensation PHYSICAL EXAM: Nursing triage notes reviewed, Vital signs reviewed Constitutional: please see mdm HENT: MMM Eyes: Visual acuity 20/25 OD, 20/15 OS. pupils equal round and reactive to light, Extraocular muscles intact, visual rosales intact, funduscopic exam within the limits of ED funduscopy shows no evidence of a marti-red macula or blood under parents. POCUS ultrasound showed no evidence of retinal detachment or vitreous hemorrhage. Intraocular pressure was within normal limits with the optic nerve diameter of less than 5 mm. Right pupil is dilated however he constricts to light. There is also a intact consensual light reflex Neck: No stridor, no JVD, full neck ROM Lungs: Clear to auscultation, No wheezing or rales. No increased work of breathing, no conversational dyspnea, no accessory muscle use, no nasal flaring. No respiratory distress noted Heart: Regular rate and rhythm, No murmurs, No rubs and No gallops, 2+ distal pulses (radial, femoral, posterior tibial) in all extremities Abdomen: Soft, there is no tenderness, rigidity, rebound or guarding, no obvious peritoneal signs, no palpable pulsatile abdominal masses, no auscultated abdominal bruit : No CVAT Extremities: No edema Neuro: Alert and oriented x3, neuro exam at baseline, cranial nerves II through XII are intact. No pain with extraocular muscle movement. There is negative test of skew. 5 of 5 strength in upper and lower extremities in flexion extension. Intact sensation to light touch in upper and lower extremity dermatomes. No truncal or extremity ataxia. No dysdiadochokinesia. Normal gait. 2+ reflexes in upper and lower extremities. No meningeal signs. Negative Babinski. NIH of 0. Skin: No rash or lesions noted MEDICAL DECISION MAKING: Chief Complaint: Ocular pain External records reviewed: Reviewed prior imaging studies: Reviewed MRI of the brain from November 2024 which showed mild brain parenchymal atrophy. No acute intracranial normality or abnormal brain parenchymal enhancement. No mass effect and optic chiasm. Negative MRA of the brain. CT scan of the head, CTA of the head neck from December 06, 2024 shows no acute intracranial hemorrhage, mass effect. No evidence of large vessel occlusion aneurysm or AVM Factors affecting care: hypothyroidism, hyperlipidemia, Social determinants of health: none History obtained from others: none Consults: Ophthalmology (Dr. Leo) MDM Narrative: The patient was initially hypotensive with a blood pressure 85/51, otherwise afebrile and nontoxic-appearing. Exam with intact visual acuity. Intact extraocular muscles. There was a dilated pupil in the right eye. I considered the following differential diagnosis: Glaucoma, increased intraocular pressure, vitreous hemorrhage, retinal detachment, central retinal artery occlusion, central vein occlusion, traumatic iritis, intracranial aneurysm amongst others I do not suspect patient suffered intracranial aneurysm as she had a negative CTA head neck, negative MRA within the last 72 hours. Initial history and physical exam did not show signs of a life-threatening/Eye threatened emergency. On reevaluation patient's blood pressure improved 132/70 without intervention. Discussed with ophthalmology. Noted patient to follow-up as an outpatient tomorrow. Strict return precautions were discussed The patient and/or family, caregivers express understanding. The patient and/or family, caregivers agrees with the plan. Shared decision making: I will have a discussion with the patient and or visitors regarding risk/benefits of further testing or admission. They will be made aware of of the risk/benefits inherent in this decision they will be given the opportunity to voice understanding. Total critical care time today provided was at least 0 minutes. This excludes separately billable procedures. Critical care time (if documented) is secondary to the patient having high probability of clinically significant/life threatening deterioration in the patient's condition which required my urgent intervention. Impression: 1. Visual disturbance 2. Dilated pupil Dispo: Discharge home This note was generated with [employer] dictation software. It may contain incorrect words, spelling, and punctuation that were not noted in review of the chart prior to signing. Discharge Plan Triage Chief Complaint: Neuro S/Sx ED Provider: Marques Boss Dx/Rx/DC Orders Clinical Impression: Dilatation pupillary Instructions: ED Double Vision (Diplopia) Prescriptions: No Action calcium carbonate [Calcium 600] 600 mg calcium (1,500 mg) tablet 600 mg PO DAILY cholecalciferol (vitamin D3) 100 mcg (4,000 unit) capsule 100 mcg PO DAILY venlafaxine 75 mg capsule,extended release 24hr 75 mg PO DAILY Qty: 90 4RF meloxicam 15 mg tablet 15 mg PO QDAY PRN (Reason: pain) Prolia 60 mg/mL syringe 60 mg subcut [id number] Qty: 1 0RF Probiotic 3 billion cell Capsule 3,000 mmu cells PO DAILY Rx Instructions: administer with a meal d-mannose 500 mg capsule 500 mg PO DAILY cephalexin 250 mg capsule 250 mg PO QHS atorvastatin 80 mg Tablet 80 mg PO QHS Qty: 30 1RF aspirin 81 mg Tablet,Chewable 81 mg PO BREAKFAST Qty: 0 11RF losartan 50 mg tablet 50 mg PO DAILY Qty: 90 3RF levothyroxine 125 mcg tablet 125 mcg PO DAILY Qty: 30 3RF Primary Care Provider: Amelia Seth Referrals: Filiberto Leo MD [Med Staff - Active Staff] - Activity Restrictions/Additional Instructions: Thank you for trusting us with your care today! Your history and physical exam were not consistent with an acute life-threatening process. You will require further outpatient evaluation by an sales representative graphic art. I spoke to the local sales representative graphic art Dr. Leo who noted he could see you in his office tomorrow. Please give his office a call first thing in the morning tomorrow. Please take Tylenol (2 pills, 650 mg), ibuprofen (2 pills, 400 mg) every 6 hours as needed for pain and fever control. Please return to the emergency department if your symptoms change or worsen. Please follow with your Ophthalmology (Dr. Leo) for further outpatient evaluation and management. Print Language: Uzbek Disposition Disposition: Home, Self Care
[2024-12-09 15:53] VITALS: BMI 27.8
[2024-12-09 16:18] VITALS: BP 132/72; PULSE 74; RESP 16; O2SAT 98
[2024-12-09 16:55] VITALS: BP 133/67; PULSE 70; RESP 16; TEMP 36.9; O2SAT 98
== END 2024-12-09 17:02 | disposition home or self-care (01) ==
PROVIDERS: Emergency Provider Emergency Medicine; PCP Internal Medicine; Referring Provider Emergency Medicine; Visit Provider Emergency Medicine
DX: H57.04 Mydriasis (principal); H53.141 Visual discomfort, right eye; I95.9 Hypotension, unspecified; I10 Essential (primary) hypertension; E78.5 Hyperlipidemia, unspecified; E03.9 Hypothyroidism, unspecified; M81.0 Age-related osteoporosis without current pathological fracture; Z88.1 Allergy status to other antibiotic agents; Z79.82 Long term (current) use of aspirin; Z87.19 Personal history of other diseases of the digestive system; Z86.718 Personal history of other venous thrombosis and embolism; Z79.890 Hormone replacement therapy; Z79.899 Other long term (current) drug therapy
CPT/HCPCS: 99284

== ENCOUNTER → 2024-12-10 | Outpatient (CLI) | payer MEDICARE, OTHER, SELFPAY ==
[2024-12-10 12:38] LABS: Erythrocyte Sedimentation Rate 5 mm/hr (0-30)
[2024-12-10 12:47] LABS: Absolute Lymphocyte Count 1.74 X10^3/uL (0.83-4.51); Absolute Neutrophil Count 4.5 X10^3/uL (2.0-7.7); Basophil# 0.05 X10^3/uL; Basophil% 0.7 % (0-1); Eosinophil# 0.07 X10^3/uL; Hematocrit 44.9 % (37-47); Hemoglobin 14.9 g/dL (12.0-15.0); Lymphocyte # 1.74 X10^3/ul (0.83-4.51); Lymphocyte % 25.6 % (19-41); Mean Corp Hgb Conc 33.2 g/dL (32-36); Mean Corpuscular Hgb 31.4 pg (27.0-32.0); Mean Corpuscular Volume 94.7 fL (81-99); Mean Platelet Vol. 11.3 fl (6.2-12.0); Monocyte# 0.42 X10^3/uL; Monocyte% 6.2 % (0-10); NRBC Flagged by Analyzer 0 % (0-5); Neutrophil # 4.51 X10^3/uL (2.7-7.7); Neutrophil % 66.4 % (47-70); Platelet Count 223 K/mm3 (150-450); RBC Distribution Width CV 14.4 % (11.6-14.6); RBC Distribution Width SD 50.5 fl (35.1-43.9); Red Blood Count 4.74 M/mm3 (4.2-5.4); White Blood Count 6.8 K/mm3 (4.4-11.0)
[2024-12-10 19:29] LABS: CRP < 3.00 mg/L (0.0-3.0)
[2024-12-13 12:08] LABS: CCP IgG Antibodies 5 units (0-19)
== END | disposition home or self-care (01) ==
LOC: BIMLAB 11:02
PROVIDERS: PCP Internal Medicine; Referring Provider Ophthalmology; Visit Provider Ophthalmology
DX: H49.02 Third [oculomotor] nerve palsy, left eye (principal)
CPT/HCPCS: 36415; 85025; 85652; 86140; 86200

== ENCOUNTER → 2024-12-29 | Outpatient (CLI) | payer MEDICARE, OTHER, SELFPAY ==
--- NOTE | 2024-12-29 14:15 | BI_ITS ---
EXAM: SCRN MAMM (CAD)W/MARLIN BILAT 12/29/2024 CLINICAL HISTORY: F, Age 69 y/o , SCREEN FOR BREAST CANCER TECHNIQUE: Bilateral screening digital breast tomosynthesis with 2D and 3D images. Computer aided detection. COMPARISON: Prior exam(s) dated 10/01/2022, 08/22/2021. FINDINGS: TISSUE DENSITY: The breast tissue is composed of scattered area of fibroglandular density. Bilateral Breast Mammographic Findings: No significant masses, calcifications or other abnormalities are identified. BI/SCRN MAMM (CAD)W/MARLIN BILAT IMPRESSION: Right Breast: BIRADS 1 NEGATIVE. Left Breast: BIRADS 1 NEGATIVE. OVERALL FINAL ASSESSMENT: BIRADS 1 NEGATIVE. RECOMMENDATION: Routine annual follow-up in 1 Year A letter with findings and recommendations will be mailed to the patient. Reading Location: [id number]
== END | disposition home or self-care (01) ==
LOC: OPBI 14:00
PROVIDERS: PCP Internal Medicine; Referring Provider Nurse Practitioner Women's Health; Visit Provider Nurse Practitioner Women's Health
DX: Z12.31 Encounter for screening mammogram for malignant neoplasm of breast (principal)
CPT/HCPCS: 77063; 77067

== ENCOUNTER → 2025-01-11 | Outpatient (CLI) | payer MEDICARE, OTHER, SELFPAY ==
[2025-01-12 12:08] LABS: ANTINUCLEAR ANTIBODIES DIRECT Negative (Negative)
== END | disposition home or self-care (01) ==
LOC: MTLAB 10:09
PROVIDERS: PCP Internal Medicine; Referring Provider Psychiatry & Neurology Neurology; Visit Provider Psychiatry & Neurology Neurology
DX: I67.9 Cerebrovascular disease, unspecified (principal); H49.01 Third [oculomotor] nerve palsy, right eye
CPT/HCPCS: 36415; 81240; 81241; 85300; 85301; 85302; 85303; 85305; 85306; 86038; 86147; 86160; 86162; 86225; 86235

== ENCOUNTER → 2025-03-22 | Outpatient (CLI) | payer MEDICARE, OTHER, SELFPAY ==
[2025-03-22 13:02] LABS: AST(SGOT) 31 U/L (<=31); Alanine Aminotransfer ALT/SGPT 43 U/L (<=34); Albumin, Serum 4.2 g/dL (3.4-4.8); Alkaline Phosphatase 74 U/L (35-104); Anion Gap 10 (5-15); BUN 18 mg/dL (4-19); BUN/Creat Ratio 29.3 RATIO (10-20); Calcium,Total 9.0 mg/dL (7.6-11.0); Carbon Dioxide 26.3 mmol/L (21.0-32.0); Chloride 103 mmol/L (98-108); Cholesterol 111 mg/dL (<=200); Globulin 2.7 g/dL (2.2-4.2); Glucose 106 mg/dL (70-99); Low Density Lipoprotein Calc. 46 mg/dL; Potassium 4.4 mmol/L (3.3-5.1); Triglycerides 118 mg/dL; Very Low Density Lipoprotein 24 mg/dL (5-40); cholesterol:hdl ratio screen 2.69
== END | disposition home or self-care (01) ==
LOC: BIMLAB 09:51
PROVIDERS: PCP Internal Medicine; Referring Provider Internal Medicine; Visit Provider Internal Medicine
DX: I10 Essential (primary) hypertension (principal); I25.2 Old myocardial infarction
CPT/HCPCS: 36415; 80053; 80061

== ENCOUNTER → 2025-04-14 | Outpatient (CLI) | payer MEDICARE, OTHER, SELFPAY ==
--- NOTE | 2025-04-14 | FLU_PTH ---
PATIENT: EMMY CRUZ LOC: RAD U#:[id number] AGE/SX: 69/F ROOM: RE04/14/[address]: Dr. David Stahl MD : 1955 BED: DIS: 04/14/2025 SPEC #: [id number] RECD: 04/14/25 14:28 STATUS: MARIANELA REHilary #: [id number] COLLEEN: 04/14/25 00:[address]: David Stahl DEPT: CYTOLOGY RECD BY: Javid Matthews ENTERED: 04/15/25 09:19 SP TYPE: Fluid OTHR DR: Dr. 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 Cerebrospinal fluid, spinal tap (cytospin): - Acellular specimen (non-diagnostic). CYTOLOGY STUDY Slides are reviewed. CYTOLOGY GROSS A. Received is 5 ml of clear fluid labeled with the patient's name and and designated per the requisition as Cerebrospinal fluid. Submitted for cytology and cell block preparation. Mr 04/15/2025 CPT: 45548
--- NOTE | 2025-04-14 13:07 | RAD_ITS ---
PROCEDURE: DX LUMBAR PUNCTURE W/IMG GUIDE 04/14/2025 REASON FOR EXAM: THIRD OCULOMOTOR NERVE PALSY R EYE,EVAL FOR DEMYELINATING DZ TECHNIQUE: DX LUMBAR PUNCTURE W/IMG GUIDE COMPARISON: Lumbar spine study of 06/20/2022. FINDINGS: Procedures: Following informed consent, and using standard sterile technique, a fluoroscopic guided lumbar puncture was performed via left posterior oblique approach.. A site was selected at the L2-L3 level. 2% lidocaine local anesthesia was followed by placement of a 20 gauge spinal needle into the thecal sac. Opening pressure was measured at 7 cm of water. A combined total of 16 mL clear fluid was successfully removed. No complication was encountered, the patient left the department in good condition without complaint. RAD/Dx Lumbar Puncture w/IMG Guide IMPRESSION: Successful fluoroscopic guided lumbar puncture, with opening pressure of 7 cm o f water. Laboratory results pending. Reading Location: [place] [id number]
[2025-04-14 13:17] VITALS: BP 133/78; PULSE 72; RESP 16; TEMP 36.5; O2SAT 100; BMI 26.5
[2025-04-14] MEDS: Lidocaine 2% (5ml sdv) 5 ML VIAL.MPF INFILT (14:00)
[2025-04-14 14:15] VITALS: BP 147/89; PULSE 72; RESP 16; O2SAT 100
[2025-04-14 14:29] LABS: Cytology, Body Fluid / CSF SEE PATHOLOGY REPORT
[2025-04-14 15:08] VITALS: BP 141/71; PULSE 70; RESP 16; O2SAT 98
[2025-04-14 15:15] LABS: Glucose Spinal Fluid 63 mg/dL (40-75); Protein Spinal Fluid 41.9 mg/dL (15.0-45.0)
[2025-04-14 15:29] LABS: Appearance CSF (character) CLEAR (Clear); Auto B Fluid Analyzer BKGD Ct COUNTS W/IN LIMITS (W/IN LIMITS); CSF Color COLORLESS (Colorless); Tested Tube # 4
[2025-04-14 15:30] LABS: Body Fluid QC Type(s) BF1 BF2
[2025-04-19 08:59] LABS: RBC Count, Spinal Fluid 1 /mm-3 (None seen); White Count, CSF 1 /mm-3 (0 - 5)
[2025-04-19 16:09] LABS: CSF:Serum Albumin Index 7 (0-8); IgG Synthesis Rate, CSF -.7 mg/day (-9.9 TO +3.3); IgG/Alb Ratio, CSF 0.12 (0.00-0.25); Myelin Basic Protein, MBP 7.6 ng/mL (0.0-4.7); Protein S, Funtional 113 % (63-140); VDRL Cerebrospinal Fluid Non Reactive (Non Rea:<1:1)
== END | disposition home or self-care (01) ==
LOC: RAD 12:55
PROVIDERS: PCP Internal Medicine; Referring Provider Psychiatry & Neurology Neurology; Visit Provider Psychiatry & Neurology Neurology
DX: H49.01 Third [oculomotor] nerve palsy, right eye (principal)
CPT/HCPCS: 62328; 82040; 82042; 82784; 82945; 83873; 83916; 84157; 85305; 85306; 86592; 87070; 87205; 88108; 88305; 88313; 89050; 89051